=== PATIENT | female | born 1985 | race Caucasian/White ===

== ENCOUNTER → 2020-04-18 20:15 | Outpatient (REF) | payer MEDICAID, SELFPAY | LOC: HO.SL 20:15 | PROVIDERS: PCP Family Medicine; Visit Provider Emergency Medicine | DX: G47.9 Sleep disorder, unspecified (principal) | CPT/HCPCS: 95810 ==

== ENCOUNTER → 2020-10-03 10:46 | Outpatient (BNVA) | payer MEDICAID, SELFPAY | PROVIDERS: PCP Internal Medicine; Visit Provider Nurse Practitioner Family ==

== ENCOUNTER → 2021-01-16 09:15 | Outpatient (BNVA) | payer MEDICAID, SELFPAY | PROVIDERS: PCP Internal Medicine; Visit Provider Surgery ==

== ENCOUNTER 2021-01-18 09:33 | Outpatient (REF) | payer MEDICAID, SELFPAY ==
--- NOTE | ~2021-01-18 | XR_ITS ---
EXAMINATION: XR CHEST CLINICAL INFORMATION: Obesity COMPARISON: 03/06/2016 TECHNIQUE: 2 views of the chest were obtained. FINDINGS: The lungs are well expanded. There is no focal consolidation, edema, or effusion. No pneumothorax. The cardiomediastinal silhouette is within normal limits. No acute osseous abnormality. XR/XR chest 2V IMPRESSION: Clear lungs.
--- NOTE | 2021-01-18 09:40 | ECG_ITS ---
Test Reason : obesity Blood Pressure : / mmHG Vent. Rate : 072 BPM Atrial Rate : 072 BPM P-R Int : 126 ms QRS Dur : 072 ms QT Int : 376 ms P-R-T Axes : 043 041 011 degrees QTc Int : 411 ms Normal sinus rhythm Low voltage QRS Borderline ECG When compared with ECG of 06-MAR-2016 20:33, No significant change was found Referred By: Edwar Young Electronically Signed By:DAVE MARIA MD
[2021-01-18 09:58] LABS: MANUAL DIFF FLAG NO
[2021-01-18 10:11] LABS: Basophils Percent Auto 0.3 % (0-2); Eosinophils Absolute Auto 0.1 X10*3/uL (0.0-0.4); Eosinophils Percent Auto 0.9 % (0-4); Hematocrit 38.7 % (37-47); Hemoglobin 12.9 g/dl (12.0-16.0); Imm Gran Abs Auto 0.02 X10*3/uL (0.00-0.03); Imm Gran Pct Auto 0.3 % (0.0-0.4); Lymphocytes Absolute Auto 1.9 X10*3/uL (1.2-4.9); Lymphocytes Percent Auto 28.7 % (20-40); Mean Corpuscular HGB Conc 33.3 g/dl (31.0-35.0); Mean Corpuscular Hemoglobin 30.9 pg (27.0-33.0); Mean Corpuscular Volume 92.8 fL (80-98); Mean Platelet Volume 10.5 fL (9.4-12.3); Monocytes Absolute Auto 0.6 X10*3/uL (0.1-1.2); Monocytes Percent Auto 8.6 % (2-11); Neutrophils Absolute Auto 4.1 X10*3/uL (2.0-8.3); Neutrophils Percent Auto 61.2 % (45-73); Platelet Count 244 X10*3/uL (160-400); Red Blood Count 4.17 X10*6/uL (4.20-5.50); Red Cell Distribution Width 12.1 % (11.0-16.0); White Blood Count 6.6 X10*3/uL (4.8-10.8)
[2021-01-18 10:16] LABS: Estimated Average Glucose 85 mg/dL; Hemoglobin A1c % 4.6 %
[2021-01-18 10:39] LABS: Alanine Aminotransferase 11 U/L (0-31); Albumin Level 4.5 g/dL (3.5-5.0); Alkaline Phosphatase 68 U/L (39-117); Anion Gap 12 (12-20); Aspartate Amino Transferase 16 U/L (5-31); Bilirubin Total 0.7 mg/dL (0.0-1.0); Blood Urea Nitrogen 17 mg/dL (9-16); C Reactive Protein 0.78 mg/dL (< or = 0.50); Calcium 9.8 mg/dL (8.4-10.2); Carbon Dioxide 28 mmol/L (22-29); Chloride 103 mmol/L (96-108); Cholesterol 156 mg/dL; Estimated Glomerular Filt Rate > 60; Glucose Random 85 mg/dL (60-115); HDL Cholesterol 57 mg/dL; Iron 73 mcg/dL (30-160); LDL Cholesterol Calculated 92 mg/dl; Percent Iron Saturation 19 % (15-50); Potassium 4.1 mmol/L (3.3-5.1); Sodium 139 mmol/L (135-145); Total Iron Binding Capacity 376 mcg/dL (228-428); Total Protein 7.3 g/dL (6.5-8.0); Triglycerides 35 mg/dL; Unsaturated Iron Binding 303 ug/dL
[2021-01-18 10:58] LABS: Ferritin 52 ng/mL (10-122); Insulin 8 uU/mL (2-29); TSH reflex Free T4 3.16 uIU/mL (0.32-4.0); Vitamin D 25-OH Total 23.3 ng/mL (>30)
[2021-01-18 11:12] LABS: Folate 15.6 ng/mL (> or = 4.0); Vitamin B12 394 pg/mL (200-900)
[2021-01-18 13:03] LABS: H Pylori Breath Test Negative (Negative)
[2021-01-19 15:51] LABS: Calcium (PTHI) 9.7 mg/dL (8.6-10.2); PTHI 46 pg/mL (14-64)
[2021-01-23 05:20] LABS: Zinc 83 mcg/dL (60-130)
[2021-01-24 01:16] LABS: Vitamin A 47 mcg/dL (38-98)
[2021-01-24 15:12] LABS: Vitamin B1 13 nmol/L (8-30)
== END 2021-01-18 09:34 | disposition home or self-care (01) ==
LOC: HO.XRAY 09:33
PROVIDERS: PCP Internal Medicine; Visit Provider Surgery
DX: E66.9 Obesity, unspecified (principal); Z68.38 Body mass index [BMI] 38.0-38.9, adult; G47.30 Sleep apnea, unspecified
CPT/HCPCS: 36415; 71046; 80053; 80061; 82306; 82607; 82728; 82746; 83013; 83036; 83525; 83540; 83970; 84425; 84443; 84590; 84630; 85025; 86140; 93005; 99211

== ENCOUNTER → 2021-02-05 08:08 | Outpatient (BNVA) | payer MEDICAID, SELFPAY | PROVIDERS: PCP Internal Medicine; Visit Provider Surgery ==

== ENCOUNTER → 2021-02-12 08:03 | Outpatient (BNVA) | payer MEDICAID, SELFPAY | PROVIDERS: PCP Internal Medicine; Visit Provider Dietitian, Registered | DX: E66.9 Obesity, unspecified (principal); Z68.38 Body mass index [BMI] 38.0-38.9, adult | CPT/HCPCS: 97802 ==

== ENCOUNTER 2021-02-20 07:54 | Outpatient (REF) | payer MEDICAID, SELFPAY ==
--- NOTE | ~2021-02-20 | US_ITS ---
EXAMINATION: US COMPLETE ABDOMEN WITH LIVER ELASTOGRAPHY CLINICAL INFORMATION: Obesity COMPARISON: Previous CT of the abdomen and pelvis March 2019 TECHNIQUE: Real-time imaging of the abdominal viscera. Noninvasive ultrasound liver fibrosis assessment is performed using Jaron ElastPQ point quantification shear wave elastography (pSWE) with a C5-2 MHz transducer. Multiple elastography samples are obtained. FINDINGS: PANCREAS: Body the pancreas is normal. The head and tail the pancreas are not well visualized due to bowel gas. ABDOMINAL AORTA: The proximal, middle, and distal aortic segments are normal in caliber. INFERIOR VENA CAVA: Visualized portions are normal. LIVER: Normal. The liver demonstrates normal size, contour and echogenicity. There is a small cyst in the right lobe measuring 7 x 5 x 6 mm. No intrahepatic biliary duct dilatation. The right lobe measures 12.6 cm in length. The left lobe measures 10.7 cm in length. Portal flow is normal/hepatopedal Shear wave liver elastography median stiffness is 2.3 m/s (reference: normal median stiffness is 1.3 m/s or less). IQR/median stiffness to assess sampling precision is 0.16 (reference: good quality data set is IQR/median stiffness of 0.15 or less). GALLBLADDER: Normal. The gallbladder is physiologically distended without evidence of stones, sludge, polyps, wall thickening or pericholecystic fluid. COMMON BILE DUCT: Normal in caliber measuring 0.3 cm in diameter. RIGHT KIDNEY: Normal. No hydronephrosis. No renal calculi or focal parenchymal lesions. The kidney measures 10.2 cm in maximum dimension. LEFT KIDNEY: Normal. No hydronephrosis. No renal calculi or focal parenchymal lesions. The kidney measures 10.7 cm in maximum dimension. SPLEEN: Normal. The spleen measures 9.4 cm in maximum dimension. FREE FLUID: None. US/US abdomen comp w elastography IMPRESSION: 1. Impression: Small liver cyst otherwise normal-appearing liver. Limited visualization of the pancreas. 2. Liver elastography: Slightly limited due to sampling error. Liver stiffness is elevated suggestive of compensated advanced chronic liver disease. REFERENCE: Society of Radiologists in Ultrasound Liver Stiffness Thresholds (2019): LIVER STIFFNESS THRESHOLDS: *Liver Stiffness equal or less than 1.3 m/s: High probability of being normal. *Liver Stiffness less than 1.7 m/s: In the absence of other known clinical signs, rules out compensated advanced chronic liver disease. *Liver Stiffness 1.7-2.1 m/s: Suggestive of compensated advanced chronic liver disease but need further test for confirmation. *Liver Stiffness over 2.1 m/s: Rules in compensated advanced chronic liver disease. *Liver Stiffness over 2.4 m/s: Suggestive of clinically significant portal hypertension. QUALITY OF DATA SET: *IQR/Median value equal or less than 0.15 implies a quality data set. *IQR/Median value over 0.15 implies a poor quality data set. SIGNIFICANT CHANGE FROM PRIOR EXAM: Significant change if liver stiffness measurement is 10% or greater from prior exam. OTHER CONSIDERATIONS: The stage of liver fibrosis may be overestimated in the setting of acute hepatitis, liver inflammation, elevated liver function tests, hepatic vascular congestion, obstructive cholestasis, non-fasting state, and infiltrative diseases such as amyloidosis and lymphoma. In some patients with NAFLD, the liver stiffness thresholds for compensated advanced chronic liver disease may be lower. In causes other than viral hepatitis and NAFLD, liver stiffness thresholds are not well established.
--- NOTE | ~2021-02-20 | FL_ITS ---
EXAMINATION: XR GI SERIES CLINICAL INFORMATION: Obesity COMPARISON: None TECHNIQUE: Upper GI was performed using thin and thick barium. FINDINGS: Esophageal motility is normal. No reflux or hernia is seen. Stomach and duodenum are normal. No fold thickening, mass, ulcer or stricture is seen. FLUOROSCOPY TIME: 0.5 minutes DOSE AREA PRODUCT: 5 bustillo per centimeter squared. 16 saved fluoroscopic images. FL/FL upper GI series IMPRESSION: Unremarkable examination.
== END 2021-02-20 07:55 | disposition home or self-care (01) ==
LOC: HO.US 07:54
PROVIDERS: PCP Internal Medicine; Visit Provider Surgery
DX: Z01.818 Encounter for other preprocedural examination (principal); E66.9 Obesity, unspecified; Z68.38 Body mass index [BMI] 38.0-38.9, adult; G47.30 Sleep apnea, unspecified; K21.9 Gastro-esophageal reflux disease without esophagitis
CPT/HCPCS: 74240; 76705; 76981

== ENCOUNTER → 2021-02-28 08:02 | Outpatient (BNVA) | payer MEDICAID, SELFPAY | PROVIDERS: PCP Internal Medicine; Visit Provider Surgery ==

== ENCOUNTER → 2021-04-04 08:39 | Outpatient (BNVA) | payer MEDICAID, SELFPAY | PROVIDERS: PCP Internal Medicine; Visit Provider Surgery ==

== ENCOUNTER → 2021-04-10 08:23 | Outpatient (BNVA) | payer MEDICAID, SELFPAY | PROVIDERS: PCP Internal Medicine; Referring Provider Internal Medicine; Visit Provider Nurse Practitioner Family | DX: G47.33 Obstructive sleep apnea (adult) (pediatric) (principal); G43.109 Migraine with aura, not intractable, without status migrainosus; Z99.89 Dependence on other enabling machines and devices | CPT/HCPCS: 99212 ==

== ENCOUNTER → 2021-04-30 08:06 | Outpatient (BNVA) | payer MEDICAID, SELFPAY | PROVIDERS: PCP Internal Medicine; Visit Provider Surgery ==

== ENCOUNTER → 2021-05-14 08:14 | Outpatient (BNVA) | payer MEDICAID, SELFPAY | PROVIDERS: PCP Internal Medicine; Visit Provider Surgery ==

== ENCOUNTER → 2021-05-18 08:58 | Outpatient (BNVA) | payer MEDICAID, SELFPAY | PROVIDERS: PCP Internal Medicine; Referring Provider Internal Medicine; Visit Provider Surgery ==

== ENCOUNTER 2021-05-31 10:39 | Inpatient (IN) | payer MEDICAID, SELFPAY ==
[2021-05-23 13:00] LABS: MANUAL DIFF FLAG NO
[2021-05-23 13:43] LABS: Basophils Percent Auto 0.2 % (0-2); Eosinophils Absolute Auto 0.1 X10*3/uL (0.0-0.4); Eosinophils Percent Auto 1.2 % (0-4); Hematocrit 40.4 % (37.0-47.0); Hemoglobin 13.1 g/dl (12.0-16.0); Imm Gran Abs Auto 0.01 X10*3/uL (0.00-0.03); Imm Gran Pct Auto 0.2 % (0.0-0.4); Lymphocytes Absolute Auto 2.1 X10*3/uL (1.2-4.9); Lymphocytes Percent Auto 49.8 % (20-40); Mean Corpuscular HGB Conc 32.4 g/dl (31.0-35.0); Mean Corpuscular Hemoglobin 30.2 pg (27.0-33.0); Mean Corpuscular Volume 93.1 fL (80.0-98.0); Mean Platelet Volume 11.7 fL (9.4-12.3); Monocytes Absolute Auto 0.4 X10*3/uL (0.1-1.2); Monocytes Percent Auto 9.9 % (2-11); Neutrophils Absolute Auto 1.6 x10*3/uL (2.0-8.3); Neutrophils Percent Auto 38.7 % (45-73); Platelet Count 208 X10*3/uL (160-400); Red Blood Count 4.34 X10*6/uL (4.20-5.50); Red Cell Distribution Width 11.6 % (11.0-16.0); White Blood Count 4.2 X10*3/uL (4.8-10.8)
[2021-05-23 13:48] LABS: INTERNATIONAL NORM RATIO 1.1 (0.9-1.1); Prothrombin Time 12.3 SEC (9.9-13.0)
[2021-05-23 13:50] LABS: Estimated Average Glucose 94 mg/dL; Hemoglobin A1c % 4.9 %
[2021-05-23 13:51] LABS: Partial Thromboplastin Time 34.1 SEC (24.1-38.0)
[2021-05-23 14:12] LABS: Alanine Aminotransferase 29 U/L (0-31); Albumin Level 4.6 g/dL (3.5-5.0); Alkaline Phosphatase 57 U/L (39-117); Anion Gap 14 (12-20); Aspartate Amino Transferase 23 U/L (5-31); Bilirubin Total 0.7 mg/dL (0.0-1.0); Blood Urea Nitrogen 12 mg/dL (9-16); C Reactive Protein 0.81 mg/dL (< or = 0.50); Calcium 9.8 mg/dL (8.4-10.2); Carbon Dioxide 28 mmol/L (22-29); Chloride 102 mmol/L (96-108); Cholesterol 146 mg/dL; Estimated Glomerular Filt Rate > 60; Glucose Random 88 mg/dL (60-115); HDL Cholesterol 46 mg/dL; LDL Cholesterol Calculated 87 mg/dl; Potassium 4.2 mmol/L (3.3-5.1); Sodium 140 mmol/L (135-145); Total Protein 7.4 g/dL (6.5-8.0); Triglycerides 67 mg/dL
[2021-05-23 14:33] LABS: Insulin 17 uU/mL (2-29); TSH reflex Free T4 1.22 uIU/mL (0.32-4.0)
[2021-05-24 14:00] VITALS: BMI 34.7
[2021-05-24 14:56] LABS: COVID-19 Test Positive (Negative); IDNOW Serial# 16C4AD1C
--- NOTE | 2021-05-25 23:51 | P.HPSUR_ITS ---
Pre-Procedural Eval Section A Date of Service: 05/25/21 The patient is an INPATIENT: Yes The History & Physical has been completed within 30 days and I have reviewed it.: Yes Section B Chief Complaint: obesity Relevant Family History (Specify if Yes): No Relevant Social History: None Present Medications: None Medical History: No relevant PMH History of Previous Operations: No relevant previous surgery Allergies: Allergies Allergy/AdvReac Type Severity Reaction Status Date / Time shellfish derived Allergy Intermediate rash/itch/throat Verified 05/24/21 14:00 swelling Review of Systems Sugical H&P ROS: Negative: Constitution, Cardiovascular, Respiratory, Neurological, Psychiatric, Hem-Onc, Allergic/Immunologic, Gastrointestinal, Genitourinary, Musculoskeletal, Integumentary, Endocrine and Eyes/Ears /Nose/Throat Exam Surgical H&P Exam: Normal: HEENT, Normal: Heart, Normal: Lungs, Normal: Extremities, Normal: Abdomen, Normal: Skin and Normal: Neurological Plan Diagnosis/Plan: Unchanged I have reviewed the history and physical and performed a pertinent physical examination on my patient. No changes have occurred unless specified.
--- NOTE | 2021-05-30 11:04 | P.CONAN_ITS ---
Documented by User: Khadijah Stein NP 05/30/21 11:06 HPI - Anesthesia Eval Consult details Narrative: 36yo F for Gastrectomy Sleeve,EGD,possible diaphragmatic hernia,possible ventral hernia,possible open PMFSH Active Problems Active Problems: All Active Problems (Updated 05/24/21 @ 14:12 by Sheela Killian PA-C) Personal history of COVID-19 (Acute) Pre-op evaluation (Acute) Mild obstructive sleep apnea (Acute) Adjustment disorder, unspecified (Acute) Vitamin D deficiency (Acute) Vitamin B12 deficiency (Acute) BMI 36.0-36.9,adult (Acute) BMI 37.0-37.9, adult (Acute) Migraine with aura and without status migrainosus, not intractable (Acute) BMI 35.0-35.9,adult (Acute) Palpitations (Acute) Back pain (Acute) Migraines (Acute) Neuropathy (Acute) Sleep apnea with use of continuous positive airway pressure (CPAP) (Acute) BMI 38.0-38.9,adult (Acute) Obesity (Acute) Past Medical History Medical History Anemia Back pain BMI 38.0-38.9,adult COVID-19 vaccine series completed Hematuria History of COVID-19 Liver fibrosis Migraines Neuropathy Obesity Palpitations Sleep apnea with use of continuous positive airway pressure (CPAP) Family History Family History Mother Heart disease Hypertension Father Cancer Brother No problems noted. Brother No problems noted. Sister No problems noted. Son Asthma Son ADHD Daughter Migraine Surgical History Surgical History Hx of section Hx of cystoscopy Hx of foot surgery Hx of foot surgery Hx of tubal ligation Social History Social History Are you a primary home health care respiratory therapist to a significant other at home: No Do you presently have visiting nurse or other home services: No Alcohol intake: never Patient Tobacco Use Status: Never used Tobacco Use of substances other than those prescribed or required for medical reasons: No Have you been hit, kicked, punched, or otherwise hurt by someone within the past year? If so, by whom?: No Are you DNR?: No Advance Directives Information Provided: Yes (advised to bring copy day of surgery) Advance Directives on File: No Recently lost weight without trying: No Eating poorly because of decreased appetite: No Nutrition Risks: No Nutritional Risk Patient : No FDLMP: 05/10/21 : No Poor oral hygiene: No Meds Allergies Allergy/AdvReac Type Severity Reaction Status Date / Time shellfish derived Allergy Intermediate rash/itch/throat Verified 05/24/21 14:00 swelling Home Medications Medication Instructions Recorded Confirmed Last Taken Type amitriptyline 10 mg tablet 10 mg PO BEDTIME 10/03/20 05/24/21 Unknown History duloxetine 20 mg capsule,delayed 20 mg PO BID 01/16/21 05/24/21 Unknown History release tramadol 50 mg tablet 50 mg PO DAILY 01/16/21 05/24/21 Unknown History Exam Exam Date and Time: May 30, 2021 1104 Height,Weight and Vital Signs: Height 4 ft 11 in Weight 78.018 kg Pertinent Lab Results Pertinent Lab Results: Laboratory Tests 05/23/21 05/23/21 05/23/21 12:59 12:59 12:59 WBC 4.2 L RBC 4.34 Hgb 13.1 Hct 40.4 MCV 93.1 MCH 30.2 MCHC 32.4 RDW 11.6 Plt Count 208 MPV 11.7 Immature Gran % (Auto) 0.2 Neut % (Auto) 38.7 L Lymph % (Auto) 49.8 H [place] % (Auto) 9.9 Eos % (Auto) 1.2 Baso % (Auto) 0.2 Lymph # (Auto) 2.1 [place] # (Auto) 0.4 Eos # (Auto) 0.1 Baso # (Auto) 0.0 Abs Immat Gran (auto) 0.01 Absolute Neuts (auto) 1.6 L Absolute Nucleated RBC 0.000 Nucleated RBC % (auto) 0.0 PT 12.3 INR 1.1 APTT 34.1 Sodium 140 Potassium 4.2 Chloride 102 Carbon Dioxide 28 Anion Gap 14 BUN 12 Creatinine 0.95 Estim Creat Clear Calc TNP Estimated GFR > 60 Random Glucose 88 Estimat Average Glucose Hemoglobin A1c % Insulin Level 17 Calcium 9.8 Total Bilirubin 0.7 AST 23 D ALT 29 Alkaline Phosphatase 57 C-Reactive Protein 0.81 H Total Protein 7.4 Albumin 4.6 Triglycerides 67 Cholesterol 146 LDL Cholesterol, Calc 87 HDL Cholesterol 46 TSH 1.22 COVID-19 (TAMMY) COVID-19 Clin Com Blood Type Antibody Screen 05/23/21 05/23/21 05/24/21 12:59 13:00 14:39 WBC RBC Hgb Hct MCV MCH MCHC RDW Plt Count MPV Immature Gran % (Auto) Neut % (Auto) Lymph % (Auto) [place] % (Auto) Eos % (Auto) Baso % (Auto) Lymph # (Auto) [place] # (Auto) Eos # (Auto) Baso # (Auto) Abs Immat Gran (auto) Absolute Neuts (auto) Absolute Nucleated RBC Nucleated RBC % (auto) PT INR APTT Sodium Potassium Chloride Carbon Dioxide Anion Gap BUN Creatinine Estim Creat Clear Calc Estimated GFR Random Glucose Estimat Average Glucose 94 Hemoglobin A1c % 4.9 Insulin Level Calcium Total Bilirubin AST ALT Alkaline Phosphatase C-Reactive Protein Total Protein Albumin Triglycerides Cholesterol LDL Cholesterol, Calc HDL Cholesterol TSH COVID-19 (TAMMY) Positive A COVID-19 Clin Com See Note Blood Type O Positive Antibody Screen NEGATIVE Narrative Narrative: EKG 12/2020 Vent. Rate : 072 BPM ? ? Atrial Rate : 072 BPM ?? P-R Int : 126 ms? QRS Dur : 072 ms ? ? QT Int : 376 ms ? ? ? P-R-T Axes : 043 041 011 degrees ?? QTc Int : 411 ms ? Normal sinus rhythm Low voltage QRS Borderline ECG When compared with ECG of 06-MAR-2016 20:33, No significant change was found Assessment and Plan Assessment Anesthesia Assessment: Chart Reviewed Documented by User: Nuris Newman MD 05/31/21 13:49 PMFSH Past Medical History Medical History Anemia Back pain BMI 38.0-38.9,adult COVID-19 vaccine series completed Hematuria History of COVID-19 Liver fibrosis Migraines Neuropathy Obesity Palpitations Sleep apnea with use of continuous positive airway pressure (CPAP) Family History Family History Mother Heart disease Hypertension Father Cancer Brother No problems noted. Brother No problems noted. Sister No problems noted. Son Asthma Son ADHD Daughter Migraine Family history of problems with anesthesia: No Surgical History Surgical History Hx of section Hx of cystoscopy Hx of foot surgery Hx of foot surgery Hx of tubal ligation History of Problems with Anesthesia: No Social History Social History Are you a primary home health care respiratory therapist to a significant other at home: No Do you presently have visiting nurse or other home services: No Alcohol intake: never Patient Tobacco Use Status: Never used Tobacco Use of substances other than those prescribed or required for medical reasons: No Have you been hit, kicked, punched, or otherwise hurt by someone within the past year? If so, by whom?: No Are you DNR?: No Advance Directives Information Provided: Yes (advised to bring copy day of surgery) Advance Directives on File: No Recently lost weight without trying: No Eating poorly because of decreased appetite: No Nutrition Risks: No Nutritional Risk Patient : No FDLMP: 05/10/21 : No Poor oral hygiene: No Meds Allergies Allergy/AdvReac Type Severity Reaction Status Date / Time shellfish derived Allergy Intermediate rash/itch/throat Verified 05/24/21 14:00 swelling Home Medications Medication Instructions Recorded Confirmed Last Taken Type amitriptyline 10 mg tablet 10 mg PO BEDTIME 10/03/20 05/24/21 Unknown History duloxetine 20 mg capsule,delayed 20 mg PO BID 01/16/21 05/24/21 Unknown History release tramadol 50 mg tablet 50 mg PO DAILY 01/16/21 05/24/21 Unknown History Exam Height,Weight and Vital Signs: Height 4 ft 11 in Weight 78.018 kg Vital Signs Temp Pulse Resp BP Pulse Ox 05/31/21 11:23 98.8 F 104 H 16 110/64 96 Pertinent Lab Results Pertinent Lab Results: Laboratory Tests 05/23/21 05/23/21 05/23/21 12:59 12:59 12:59 WBC 4.2 L RBC 4.34 Hgb 13.1 Hct 40.4 MCV 93.1 MCH 30.2 MCHC 32.4 RDW 11.6 Plt Count 208 MPV 11.7 Immature Gran % (Auto) 0.2 Neut % (Auto) 38.7 L Lymph % (Auto) 49.8 H [place] % (Auto) 9.9 Eos % (Auto) 1.2 Baso % (Auto) 0.2 Lymph # (Auto) 2.1 [place] # (Auto) 0.4 Eos # (Auto) 0.1 Baso # (Auto) 0.0 Abs Immat Gran (auto) 0.01 Absolute Neuts (auto) 1.6 L Absolute Nucleated RBC 0.000 Nucleated RBC % (auto) 0.0 PT 12.3 INR 1.1 APTT 34.1 Sodium 140 Potassium 4.2 Chloride 102 Carbon Dioxide 28 Anion Gap 14 BUN 12 Creatinine 0.95 Estim Creat Clear Calc TNP Estimated GFR > 60 Random Glucose 88 Estimat Average Glucose Hemoglobin A1c % Insulin Level 17 Calcium 9.8 Total Bilirubin 0.7 AST 23 D ALT 29 Alkaline Phosphatase 57 C-Reactive Protein 0.81 H Total Protein 7.4 Albumin 4.6 Triglycerides 67 Cholesterol 146 LDL Cholesterol, Calc 87 HDL Cholesterol 46 TSH 1.22 COVID-19 (TAMMY) COVID-19 [employer] Com Blood Type Antibody Screen 05/23/21 05/23/21 05/24/21 12:59 13:00 14:39 WBC RBC Hgb Hct MCV MCH MCHC RDW Plt Count MPV Immature Gran % (Auto) Neut % (Auto) Lymph % (Auto) [place] % (Auto) Eos % (Auto) Baso % (Auto) Lymph # (Auto) [place] # (Auto) Eos # (Auto) Baso # (Auto) Abs Immat Gran (auto) Absolute Neuts (auto) Absolute Nucleated RBC Nucleated RBC % (auto) PT INR APTT Sodium Potassium Chloride Carbon Dioxide Anion Gap BUN Creatinine Estim Creat Clear Calc Estimated GFR Random Glucose Estimat Average Glucose 94 Hemoglobin A1c % 4.9 Insulin Level Calcium Total Bilirubin AST ALT Alkaline Phosphatase C-Reactive Protein Total Protein Albumin Triglycerides Cholesterol LDL Cholesterol, Calc HDL Cholesterol TSH COVID-19 (TAMMY) Positive A COVID-19 Clin Com See Note Blood Type O Positive Antibody Screen NEGATIVE Laboratory Results - last 24 hr 05/30/21 05/31/21 13:52 10:37 COVID-19 (TAMMY) Positive A Negative COVID-19 Clin Com See Note See Note Patient with h/o Covid in March- positive home test.Positive 05/24/21 and again yesterday on RNA tests but negative today CXR today- normal Airway Mallampati Class: II TM Dist: >3cm Neck ROM: Full Heart: RRR Lungs: CTAB Assessment and Plan Assessment Anesthesia Assessment: Anesthesia Plan Discussed Final Anesthetic Review Family History of Problems with Anesthesia: No History of Problems with Anesthesia: No NPO: Yes ASA Class: III and IV Final Preanesthetic Review: No Changes in Pt Med Stat, Meds/Allgs Chart Reviewed, Consent Obtained/Reviewed and Anes Risks/Benef Reviewed Patient Risk: Intermediate Procedure Risk: Intermediate Assessment/Block/Sedation in SS: Assess/Block/Sedation-SS Anesthetic Plan Anesthetic Plan: GA Disposition: Standard PACU and Inp. Admit - Standard Bed
[2021-05-30 14:06] LABS: COVID-19 Test Positive (Negative); IDNOW Serial# 16C4AD1C
[2021-05-31] VITALS (10 sets, daily range): BP systolic 109–161; BP diastolic 62–96; PULSE 62–104; RESP 14–17; TEMP 36.1–37.1; O2SAT 96–100
--- NOTE | ~2021-05-31 | XR_ITS ---
EXAMINATION: XR CHEST CLINICAL INFORMATION: Positive Covid testis. COMPARISON: December 2020 TECHNIQUE: Frontal view of the chest was obtained. FINDINGS: No significant abnormality is noted involving the heart, lungs, mediastinum, bony thorax or soft tissues. XR/XR chest 1V IMPRESSION: Normal portable chest x-ray
[2021-05-31 11:04] LABS: COVID-19 Test Negative (Negative); IDNOW Serial# 16C4AD1C
--- NOTE | 2021-05-31 11:25 | PC.NURSE ---
called radiology for a stat pre-op chest xray.
[2021-05-31] MEDS: Lactated Ringers 1,000 ML 999 ML IV (11:44)
[2021-05-31] MEDS: Lactated Ringers 1,000 ML 100 ML IVCONT ×2 (11:56→17:39)
--- NOTE | 2021-05-31 11:56 | PC.NURSE ---
bedside chest xray performed.
--- NOTE | 2021-05-31 12:59 | P.PNGS_ITS ---
Subjective Subjective Date of Service: 06/01/21 Interval history: Patient has mild incisional pain, but was able to ambulate and use the incentive spirometer. She is tolerating phase 1 bariatric diet Physical Exam Vital Signs: Vital Signs: Last Vital Signs Temp 98.8 F 05/31/21 11:23 Pulse 104 H 05/31/21 11:23 Resp 16 05/31/21 11:23 BP 110/64 05/31/21 11:23 Pulse Ox 96 05/31/21 11:23 BMI result Body Mass Index 34.7 GI: Inspection: Yes normal to inspection, Yes incision (clean, dry and intact) and Yes obesity Extrem: Right lower extremity: normal to inspection (no calf tenderness) Left lower extremity: normal to inspection (no calf tenderness) Objective Data Active Medications Lactated Ringer's (Lr) 1,000 mls @ 100 mls/hr IVCONT .Q10H FOR[facility]LY [facility], 1928–1983 Last Admin: 05/31/21 11:56 Dose: 100 mls/hr Documented by: ALISTAIR Labs CBC & Chem 7: 06/01/21 05:17 06/01/21 05:17 Labs: Laboratory Results - last 24 hr 05/30/21 05/31/21 13:52 10:37 COVID-19 (TAMMY) Positive A Negative COVID-19 Clin Com See Note See Note Procedures Date of Service Date of Service: 06/01/21 Progress Note: A&P Assessment and plan (1) Obesity: Status: Acute Assessment and Plan: s/p laparoscopic sleeve gastrectomy, lysis of adhesions repair of diaphragmatic hernia, and gastropexy Doing well Check am labs. If OK, will discharge home (2) BMI 35.0-35.9,adult: Status: Acute (3) Sleep apnea with use of continuous positive airway pressure (CPAP): Status: Acute (4) Neuropathy: Status: Acute (5) Migraines: Status: Acute (6) Back pain: Status: Acute (7) Liver fibrosis: Status: Acute (8) S/P laparoscopic sleeve gastrectomy: Status: Acute Fall Risk Details Current Medications: Current Medications Lactated Ringer's (Lr) 1,000 mls @ 100 mls/hr IVCONT .Q10H [facility] Last Admin: 05/31/21 11:56 Dose: 100 mls/hr Documented by: Time Spent With Patient Time: Total time spent is greater than 50% in coordination of care (as documented) at patient's floor/unit and/or counseling patient: Time with patient: less than 15 minutes Quality Stroke Does the patient have a stroke diagnosis?: No VTE Prior VTE?: No VTE Risk Level:: Surgical - moderate VTE Device Contraindication: N/A - Device Ordered VTE Drug Contraindication: Treatment Not Indicated
--- NOTE | 2021-05-31 13:01 | PM.OP ---
Brief Operative Note Date of Service: 05/31/21 Pre-op diagnosis: Severe obesity with comorbidities (see below) Post-op diagnosis: same Procedure: INITIAL PATIENT BMI ON PRESENTATION AT OUR OFFICE: 38.1 kg/m2 LAST BMI BEFORE SURGERY: 35.2 kg/m2 COMORBIDITIES: sleep apnea on CPAP, neuropathy, migraines, back pain, liver fibrosis ?The patient presented to the Weight Management Program with significant obesity that was negatively impacting the patient's comorbidities as listed above.? The program is a phased program with a special focus on preoperative medical weight management to promote substantial weight loss and prepare the patients for the second phase of the program: bariatric surgery. The patient participated in an intensive weekly lifestyle ?intervention and exercise program during which the patient ?has lost between the initial office visit and the last preoperative visit 16.8lbs, or 8.89% of initial actual body weight. It was deemed appropriate for the patient to now have bariatric surgery. In light of the current Covid-19 pandemic and the well documented strong association of obesity and increased risk of worse outcomes if infected with Covid-19 (REFERENCES:https://pubmed.ncbi.nlm.nih.gov/84812327/,?https://pubmed.ncbi.nlm.nih.gov/89267304/), any delay in undergoing bariatric surgery may lead to the patient's worsening health condition and increased?risk of more severe Covid-19 disease if infected. In addition a recent?study from [facility] published in [facility] on 03/26/2021 ([email or web address]:/[email or web address]) found that, among patients with obesity, substantial weight loss achieved with surgery was associated with improved outcomes of COVID-19 infection. The findings suggest that obesity can be a modifiable risk factor for the severity of COVID-19 infection. In addition, the patient met the BMI-criteria for bariatric surgery based on the BMI on initial presentation. The patient should not be penalized for achieving such weight loss because ?it is not sustainable long-term without surgical intervention and it was achieved in preparation for bariatric surgery ?under my direction and based on my published research ([email or web address]).pdf and?https://www.soard.org/article/[email or web address](70)35554-X/pdf) ?that a 10% preoperative weight loss improves long-term weight loss after surgery and reduces perioperative complications.? Insurance carriers such as [facility] have endorsed my recommendations ?and have included in their policies criteria to include a 10% preoperative weight loss requirement. PROCEDURE: Esophago-gastroscopy, laparoscopic sleeve gastrectomy and laparoscopic gastropexy INDICATIONS: This is a 36 year-old female who was electively scheduled for laparoscopic, possibly open sleeve gastrectomy. The risks and complications of the procedure were discussed with the patient in advance, particularly the possibility of ; pulmonary embolism; staple line leak; bleeding; GERD; cardiac, pulmonary, or renal complications; as well as long-term problems such as insufficient weight loss, vitamin deficiency, strictures, or ulcers. The patient understood all the risks, and was in agreement to proceed with surgery. DESCRIPTION OF PROCEDURE: After informed consent was obtained from the patient, the patient was given preoperative antibiotics, and was transferred to the operating room. After successful induction of general anesthesia, pneumatic compression devices were placed on both lower extremities. An upper endoscopy was performed next. The oropharynx and esophagus appeared to be within normal limits. There was no diaphragmatic hernia present with the findings of the preoperative upper GI. The stomach was entered. Then after all fluid and air were suctioned and the stomach was fully decompressed, the scope was withdrawn and secured in the mid esophagus. The patient was then prepped and draped in the usual sterile manner, and abdominal access was established at the right upper quadrant with the Dillan technique. A 12 mm blunt port was inserted, and the abdomen was insufflated with CO2 to a pressure of 15 mmHg. Under direct visualization, additional ports were placed, specifically two 5 mm Versi-step ports to the left upper quadrant, and a 5 mm Versi-Step port to the right upper quadrant. 1% lidocaine plain was used to infiltrate all port sites as well as all fascia defects. Following that, the patient was placed in a steep reverse Trendelenburg position. An additional 5 mm port was placed to the right flank for the Mediflex retractor that was used to retract the left lobe of the liver. The gastro-esophageal fat pad was opened with the ultrasonic device (Thunderbeat, Olympus) and the anterior esophagus and hiatus were exposed. The angle of His was opened with the ultrasonic device the fundus of the stomach from any diaphragmatic and splenic attachments. I then opened the gastrocolic ligament between the transverse colon and the greater curvature of the stomach with the ultrasonic device to enter the lesser sac and facilitate the ligation of the short gastric vessels. I started at a mid-point along the greater curvature and using the Thunderbeat, all short gastric vessels were divided all the way to the angle of His until the left lalito was completely dissected at its entirety. I then divided the gastro-colic ligament distally to a distance of about 3-4 cm proximal to the esophagus. The stomach was then divided transversely with one Endo BARB-45 purple, one BARB-45 orange load and three BARB-60 articulating orange loads using the AEON stapler and loads. Every effort was made that the gastric sleeve had a tubular shape and an even caliber throughout. Once the sleeve resection was completed, the staple line of the gastric sleeve was reinforced with Hemoclips. The resected stomach was retrieved without difficulty from the Dillan port. A gastropexy was then performed in order to prevent postoperative GERD and partial gastric volvulus. Several interrupted 2.0 Surgidac sutures were placed between the sleeve's staple line and the previously divided greater omentum and gastro-colic ligament using the Endo-Stitch device. ?An upper endoscopy was performed. There was no narrowing at the GE junction. The scope was easily advanced all the way to the pylorus which was clearly visualized. There was no narrowing anywhere and the sleeve's caliber was even throughout. The sleeve's staple line was inspected and there was no evidence of ischemia, bleeding or dehiscence. At that point the gastroscope was withdrawn from the patient?s mouth while we were decompressing the bowel and the stomach from any remaining air. I looked into the lesser sac to see how the sleeve was situating and it was situating well. There was no bleeding from the staple line, spleen, or short gastric vessels. The Mediflex retractor was removed, and the undersurface of the liver was inspected and there was no bleeding. The patient was placed in supine position. I closed the fascial defect of the 12 mm port site with a figure of eight #1 Polysorb suture. Then 100 cc 0.25 % Marcaine plain with 10 mg of Dexamethasone were used to infiltrate the fascial closure as well as all skin incisions. At this point, the abdomen was deflated, all ports were removed under direct vision, and no bleeding was noted from any of the port sites. The skin incisions were irrigated with saline and were closed with 4-0 absorbable monofilament sutures. Steri-Strips and OpSites were used to cover all incisions. The patient was extubated and was transferred in stable condition to the recovery room for further care. I was present and performed all michele parts of the procedure. 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 There were no residents to assist with this case. Bret Young MD, PhD, FACS Surgeon: Edwar Young MD Anesthesia: GETA, local and other (TAP block) Was an Regional Project Manager used for this Procedure?: No Regional Project Manager: Jamaal Yuan Estimated blood loss (mL): 10 IV fluids (mL): 2,500 Urine output (mL): 0 (No Stevens to record) Pathology: other (Stomach) Condition: stable Disposition: PACU
--- NOTE | 2021-05-31 15:51 | PM.DS ---
DS: Providers Provider Date of Service: 06/01/21 Date of admission: 05/31/21 10:39 Primary care physician: Jim Gonzalez MD DS: Diagnosis Discharge Diagnosis (1) Obesity: Status: Acute (2) BMI 35.0-35.9,adult: Status: Acute (3) Sleep apnea with use of continuous positive airway pressure (CPAP): Status: Acute (4) Neuropathy: Status: Acute (5) Migraines: Status: Acute (6) Back pain: Status: Acute (7) Liver fibrosis: Status: Acute DS: Summary Hospital Course Hospital Course: ADMITTING DIAGNOSIS: morbid obesity, LEONARD, migraine, neuropathy, back pain ? DISCHARGE DIAGNOSIS: same, s/p laparoscopic sleeve gastrectomy ? PAST SURGICAL HISTORY: cesarian section and foot surgery ? PROCEDURE: upper endoscopy, laparoscopic sleeve gastrectomy ? DISCHARGE SUMMARY: ? History of Present Illness: ? The patient is a?36 year-old woman with a BMI of?38.1 kg/m2 and associated co-morbidities as described above. The patient had extensive work-up,lost?13.6 lbs preoperatively and was electively scheduled for laparoscopic, possible open sleeve gastrectomy and gastropexy. Risks and complications of the surgery were discussed with the patient in advance, particularly the possibility of , pulmonary embolism, anastomotic leak, bleeding, bowel injury, GERD, cardiac, renal or pulmonary complications. The patient understood all the risks and was in agreement with the surgical plan. ? Hospital Course: ? The patient underwent an uneventful laparoscopic sleeve gastrectomy with gastropexy on the day of admission. Postoperatively, the patient was transferred to the surgical floor. The patient received IV Acetaminophen and IV dilaudid for pain control. Patient was started on bariatric phase 1 diet POD #0. On postoperative day one, the patient was feeling well without nausea, vomiting, fevers, or tachycardia. The patient had some mild incisional pain and the abdomen was soft. ? On the morning of postoperative day one, the patient was continued on 1 ounce of water or ice every half hour. During the day, the patient did fairly well, having some incisional pain, but able to ambulate adequately and to tolerate liquids well. ? Since the patient is doing well, we decided that the patient was ready to be discharged. The patient was given instructions to follow-up with me next week and to call my office for any fever over 101, persistent abdominal pain, nausea, vomiting, GERD, symptoms of DVT such as calf tenderness, or leg swelling, or pulmonary embolism such as chest pain or shortness of breath. The patient was also instructed to drink 40-60 ounces of liquids per day using the 1-ounce cups. The patient had been given prescriptions for Tylenol for pain, Zofran prn for nausea, and pantoprazole and carafate previously. The patient was encouraged to ambulate and use the incentive spirometer. The patient was allowed to shower, but no baths, and encouraged to stay active at home. All of these instructions were given to the patient personally. All questions were answered and the patient understood all instructions, the instructions were also given to the patient in print. Time Spent with Patient Time attestation: Total time spent providing and/or coordinating discharge services: Discharge coordination time: Less than 30 minutes Quality: Stroke Does the patient have a stroke diagnosis?: No Physical Exam Vital Signs: Vital Signs: Last Vital Signs Temp 97.0 F 05/31/21 15:41 Pulse 93 05/31/21 15:46 Resp 14 05/31/21 15:46 BP 137/77 05/31/21 15:46 Pulse Ox 100 05/31/21 15:46 BMI result Body Mass Index 34.7 DS: Data Data Completed and Pending Pending studies at discharge: Pending at discharge 05/31/21 14:50 Surgical [PTH] Routine Labs on day of discharge: Laboratory Results - last 24 hr 05/31/21 10:37 COVID-19 (TAMMY) Negative COVID-19 Clin Com See Note Discharge Plan Discharge Patient Disposition: Home, Self-Care Discharge Diagnosis: s/p laparoscopic sleeve gastrectomy Referrals: Jim Gonzalez MD [Primary Care Provider] - 1 Week Discharge Medications: Continued amitriptyline 10 mg tablet 10 mg PO BEDTIME 0RF duloxetine 20 mg capsule,delayed release(DR/EC) 20 mg PO BID 0RF pantoprazole 40 mg tablet,delayed release (DR/EC) 40 mg PO DAILY Qty: 30 2RF sucralfate 100 mg/mL suspension 10 ml PO BID Qty: 400 2RF sumatriptan succinate 100 mg tablet 100 mg PO Q2H PRN (Reason: migraine headache) Qty: 14 6RF Rx Instructions: do not exceed 2 doses per 24 hrs or 4 doses per week. Held tramadol 50 mg tablet 50 mg PO BID PRN (Reason: Pain) 0RF Hold Instructions: until discussed with dr Monroe Discontinued cholecalciferol (vitamin D3) 125 mcg (5,000 unit) capsule 125 mcg PO DAILY Qty: 30 2RF mecobalamin (vitamin B12) 1,000 mcg tablet,disintegrating 1,000 mcg sublingual DAILY Qty: 30 2RF Rx Instructions: place tablet under tongue and allow to dissolve for at least30 secs before swallowing riboflavin (vitamin B2) 400 mg tablet 400 mg PO DAILY 30 Days Qty: 30 6RF magnesium oxide 400 mg (241.3 mg magnesium) tablet 400 mg PO BEDTIME 30 Days Qty: 30 6RF Diet: other Activity on Discharge: No heavy lifting Stand Alone Forms: Patient Portal Discharge page Care Plan Goals: weight loss Health Concerns: obesity Plan of Treatment: No tub baths, sex or returning to work until discussed at first post op appointment. No exercise, alcohol, tobacco or illegal drug use. Continue to use incentive spirometer hourly while awake. Walk in home for 5- 10 minutes every 2 hours during the first week. Follow all instructions in the bariatric handbook and call with any questions.Discharge Instructions 1. Please call your doctor or come back to the emergency room should any new symptoms arise. 2. You will receive a courtesy call from [facility] 24-48 hours after discharge. 3. Activity: abstain from alcohol, practice limited stair climbing, no bending, no driving, no exercise, no illicit substances, no lifting, no sex, no tub bath, no work. 4. Diet: continue as discussed with Dr. Young. 5. Dressing Change/Wound Care: Your incision is covered by clear bandages and guaze underneath. If the area is tender, you may apply an ice pack for short intervals (no more than 20 minutes on, followed by at least 20 minutes off). Do not apply heat. Do not use creams, lotions, or topical antibiotics unless instructed to do so by your surgeon. These can cause infection or allergic reaction. 6. Call your doctor if: - Your temperature exceeds 101.5 F - You experience excessive pain or swelling - You have an unexpected reaction to medication - You have excessive bleeding - You experience continued vomiting/nausea - Your incision begins to separate - Your incision shows signs of infection such as increased redness, swelling, excessive pain, heat, or drainage (light blood or clear fluid is normal) 7. General instructions: No lifting greater than 5 lbs for the next 4 weeks. [address] driving within 24 hours of taking narcotic pain medications. If you do not move your bowels in the next 2 days, please take milk of magnesia over the counter. Please follow the post op diet and do not advance your diet until you are seen in the office in about 2 weeks. Please walk around your home every hour or two to prevent blood clots from forming in your legs. You do not need to wake from sleeping to walk. Please sleep in a bed or couch to prevent kinking at the hips and knees. 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 You may shower, no hot tubs, baths or swimming pools. Please call the office with any questions or concerns such as increasing abdominal pain, fever, chills, shortness of breath, chest pain, leg pain or swelling, or redness or drainage from your incisions. Please stay on stage 3 diet which includes sugar free clear liquids such as ice pops and jello and broth and crystal light. Avoid all carbonation. Please drink 3 protein shakes with at least 25-30 grams of protein daily or 3 of the Celebrate 4:1 shakes which can be purchased in our office. The Celebrate shakes have all of the bariatric vitamins you need if you consume these shakes. If you are drinking other protein shakes, you will need to purchase the Celebrate multivitamins and calcium that we provide in the office (they will provide all the vitamins you need). Please make sure you are consuming at least 40-60 ounces of water in addition to your 3 protein shakes daily. Do not hesitate to contact the office with any questions at . The patient's medical history has been reviewed and they are considered low risk for post op DVT and therefore DVT prophylaxis is not considered necessary. Travel after surgery was reviewed. The patient has not disclosed any travel plans during the first 30 days after surgery and they have been advised that within the first 30 days after surgery any bus, plane, train or car travel over 2 hours in duration is contraindicated due to the possibility of developing blood clots from immobility. Any travel, needs to include periods of ambulation of 10 minutes in duration every 2 hours.? The patient was instructed to discuss any plans for travel during this period with their bariatric surgeon. Assessment: stable s/p laparoscopic sleeve gastrectomy
[2021-05-31 16:35] LABS: Hematocrit 35.4 % (37.0-47.0); Hemoglobin 11.7 g/dl (12.0-16.0)
[2021-05-31 16:49] LABS: Anion Gap 16 (12-20); Blood Urea Nitrogen 9 mg/dL (9-16); Calcium 8.9 mg/dL (8.4-10.2); Carbon Dioxide 23 mmol/L (22-29); Chloride 103 mmol/L (96-108); Creatinine Clr Calc Pharmacy 82.1; Estimated Glomerular Filt Rate > 60; Glucose Random 100 mg/dL (60-115); Potassium 4.1 mmol/L (3.3-5.1); Sodium 138 mmol/L (135-145)
[2021-05-31] MEDS: 0.9 % Sodium Chloride Flush 3 ML SYRINGE IVFLUSH ×2 (17:40→20:08)
--- NOTE | 2021-05-31 17:44 | PHA.MEDREC ---
Addendum entered by Danilo Fernandez RPh 05/31/21 17:46: Patient has rx for carafate in her bag, but has not started it Original Note: Pharmacy Consult ? Medication Reconciliation Pharmacy has completed the medication reconciliation. Spoke to patient and spouse. Despite refill history, patient endorses that they take cymbalta and amitriptyline. Danilo Fernandez
[2021-05-31] MEDS: Metoclopramide HCl 10 MG/2 ML VIAL IVPUSH (18:02)
[2021-05-31] MEDS: Famotidine/PF 20 MG/2 ML VIAL IVPUSH (20:08)
[2021-06-01] MEDS: ondansetron HCL 4 MG/2 ML VIAL IVPUSH ×2 (02:00→08:57)
[2021-06-01] MEDS: Lactated Ringers 1,000 ML 100 ML IVCONT (02:01)
[2021-06-01 03:47] VITALS: BP 115/71; PULSE 70; RESP 14; TEMP 36.1; O2SAT 98
[2021-06-01 05:45] LABS: MANUAL DIFF FLAG NO
[2021-06-01 05:54] LABS: Hematocrit 36.1 % (37.0-47.0); Hemoglobin 11.8 g/dl (12.0-16.0); Imm Gran Abs Auto 0.02 X10*3/uL (0.00-0.03); Imm Gran Pct Auto 0.2 % (0.0-0.4); Lymphocytes Absolute Auto 0.9 X10*3/uL (1.2-4.9); Mean Corpuscular HGB Conc 32.7 g/dl (31.0-35.0); Mean Corpuscular Hemoglobin 30.1 pg (27.0-33.0); Mean Corpuscular Volume 92.1 fL (80.0-98.0); Mean Platelet Volume 12.3 fL (9.4-12.3); Monocytes Absolute Auto 0.6 X10*3/uL (0.1-1.2); Monocytes Percent Auto 6.9 % (2-11); Neutrophils Absolute Auto 7.1 x10*3/uL (2.0-8.3); Neutrophils Percent Auto 82.9 % (45-73); Platelet Count 221 X10*3/uL (160-400); Red Blood Count 3.92 X10*6/uL (4.20-5.50); Red Cell Distribution Width 11.7 % (11.0-16.0); White Blood Count 8.5 X10*3/uL (4.8-10.8)
[2021-06-01 07:00] LABS: Anion Gap 16 (12-20); Blood Urea Nitrogen 7 mg/dL (9-16); Carbon Dioxide 23 mmol/L (22-29); Chloride 102 mmol/L (96-108); Creatinine Clr Calc Pharmacy 91.6; Estimated Glomerular Filt Rate > 60; Glucose Random 101 mg/dL (60-115); Potassium 4.6 mmol/L (3.3-5.1); Sodium 136 mmol/L (135-145)
[2021-06-01 07:12] LABS: Calcium 10.1 mg/dL (8.4-10.2)
[2021-06-01 07:41] VITALS: BP 118/69; PULSE 61; RESP 18; TEMP 36.4; O2SAT 95
[2021-06-01] MEDS: Famotidine/PF 20 MG/2 ML VIAL IVPUSH (08:57)
[2021-06-01 11:56] VITALS: BP 121/73; PULSE 62; RESP 18; TEMP 36.5; O2SAT 99
--- NOTE | 2021-06-01 16:01 | MHC.CM.PN ---
EMR REVIEWED, PT ADMITTED S/P LAP SLEEVE GASTRECTOMY, CM MET W/PT WHO REPORTS SHE LIVES W/HER AND CHILDREN, PT IS INDEPENDENT W/ALL CARE, USES A CPAP AND NO OTHER DME AND HAS NO HOME SERVICES, PT VERIFIES PCP BIANCA ELLISON, REPORTS HER IS HER HCP [facility] [phone], CPY REQUESTED, PT PREFERS TO D/C AFTER LUNCH, AT BEDSIDE AND WILL TRABNSPORT. D/C PLAN: HOME SELF CARE TODAY W/ FOR TRANSPORT
== END 2021-06-01 13:46 | disposition home or self-care (01) | DRG 403 ==
LOC: HO.SSSA 15:51 → HO.S3 16:21
PROVIDERS: Nurse Practitioner; Physician Assistant Surgical; Admitting Provider Surgery; PCP Internal Medicine; Visit Provider Surgery
PROC: 0DB64Z3 Excision of Stomach, Percutaneous Endoscopic Approach, Vertical (ICD-10-PCS; CPT 43845; principal; 2021-05-31 12:50)
DX: E66.01 Morbid (severe) obesity due to excess calories (principal); K74.00 Hepatic fibrosis, unspecified; G43.909 Migraine, unspecified, not intractable, without status migrainosus; Z68.35 Body mass index [BMI] 35.0-35.9, adult; G47.33 Obstructive sleep apnea (adult) (pediatric); G62.9 Polyneuropathy, unspecified; M54.9 Dorsalgia, unspecified; Z86.16 Personal history of COVID-19; Z99.89 Dependence on other enabling machines and devices; Z79.891 Long term (current) use of opiate analgesic; Z79.899 Other long term (current) drug therapy
CPT/HCPCS: 36415; 71045; 80048; 80053; 80061; 83036; 83525; 84443; 85014; 85018; 85025; 85610; 85730; 86140; 86850; 86900; 86901; 87635; 88307; 88342; 99024; A4649; J0131; J0690; J1100; J1170; J2250; J2370; J2405; J2765; J3010

== ENCOUNTER → 2021-06-06 08:22 | Outpatient (BNVA) | payer MEDICAID, SELFPAY | PROVIDERS: PCP Internal Medicine; Referring Provider Internal Medicine; Visit Provider Surgery | DX: E66.9 Obesity, unspecified (principal); Z68.32 Body mass index [BMI] 32.0-32.9, adult; Z98.84 Bariatric surgery status | CPT/HCPCS: 99212 ==

== ENCOUNTER → 2021-07-04 08:33 | Outpatient (BNVA) | payer MEDICAID, SELFPAY | PROVIDERS: PCP Internal Medicine; Visit Provider Surgery | DX: E66.9 Obesity, unspecified (principal); Z68.30 Body mass index [BMI] 30.0-30.9, adult | CPT/HCPCS: 99212 ==

== ENCOUNTER → 2021-07-24 08:21 | Outpatient (BNVA) | payer MEDICAID, SELFPAY | PROVIDERS: PCP Internal Medicine; Referring Provider Internal Medicine; Visit Provider Dietitian, Registered | DX: E66.9 Obesity, unspecified (principal); Z68.29 Body mass index [BMI] 29.0-29.9, adult | CPT/HCPCS: 97803 ==

== ENCOUNTER → 2021-08-30 10:30 | Outpatient (BNVA) | payer MEDICAID, SELFPAY | PROVIDERS: PCP Internal Medicine; Referring Provider Surgery; Visit Provider Dietitian, Registered | DX: E66.3 Overweight (principal); Z68.28 Body mass index [BMI] 28.0-28.9, adult; Z71.3 Dietary counseling and surveillance | CPT/HCPCS: 97803 ==

== ENCOUNTER → 2021-09-05 14:52 | Outpatient (BNVA) | payer MEDICAID, SELFPAY | PROVIDERS: PCP Internal Medicine; Visit Provider Physician Assistant Surgical | DX: R10.9 Unspecified abdominal pain (principal); R11.10 Vomiting, unspecified; Z98.84 Bariatric surgery status | CPT/HCPCS: 99212 ==

== ENCOUNTER → 2021-10-02 11:14 | Outpatient (BNVA) | payer MEDICAID, SELFPAY | PROVIDERS: PCP Internal Medicine; Referring Provider Surgery; Visit Provider Dietitian, Registered | DX: E66.3 Overweight (principal); Z68.27 Body mass index [BMI] 27.0-27.9, adult; Z98.84 Bariatric surgery status; Z71.3 Dietary counseling and surveillance | CPT/HCPCS: 97803 ==

== ENCOUNTER → 2021-11-01 15:21 | Outpatient (BNVA) | payer MEDICAID, SELFPAY | PROVIDERS: PCP Internal Medicine; Referring Provider Surgery; Visit Provider Dietitian, Registered | DX: E66.3 Overweight (principal); Z71.3 Dietary counseling and surveillance; Z98.84 Bariatric surgery status | CPT/HCPCS: 97803 ==

== ENCOUNTER → 2022-01-02 08:46 | Outpatient (BNVA) | payer MEDICAID, SELFPAY | PROVIDERS: PCP Nurse Practitioner Primary Care; Visit Provider Physician Assistant Surgical | DX: E66.9 Obesity, unspecified (principal); Z68.24 Body mass index [BMI] 24.0-24.9, adult; Z98.84 Bariatric surgery status | CPT/HCPCS: 99212 ==

== ENCOUNTER → 2022-05-29 12:36 | Outpatient (BNVA) | payer MEDICAID, SELFPAY | PROVIDERS: PCP Nurse Practitioner Primary Care; Visit Provider Physician Assistant Surgical | DX: Z98.84 Bariatric surgery status (principal) | CPT/HCPCS: 99212 ==

== ENCOUNTER 2022-08-29 09:23 | Outpatient (REF) | payer MEDICAID, SELFPAY ==
--- NOTE | ~2022-08-29 | US_ITS ---
EXAMINATION: US VENOUS ULTRASOUND WITH DOPPLER LOWER EXTREMITY, RIGHT CLINICAL INFORMATION: Right lower extremity pain, rule out DVT. COMPARISON: None available. TECHNIQUE: Ultrasound of the deep veins is performed from the hip to the calf with compression sonography and color and pulse Doppler assessment. Spectral analysis with color-flow imaging is performed. FINDINGS: There is normal venous compression and respiratory variation and augmented flow. The visualized common femoral vein, superficial femoral vein, profunda femoral vein, popliteal vein, and the trifurcation region shows no evidence of deep venous thrombosis. No right popliteal cyst. The subcutaneous soft tissues are unremarkable. US/US venous duplex LE RT IMPRESSION: No evidence for deep venous thrombosis in the visualized veins of the right lower extremity.
== END 2022-08-29 09:24 | disposition home or self-care (01) ==
LOC: HO.US 09:23
PROVIDERS: PCP Nurse Practitioner Primary Care; Visit Provider Student in an Organized Health Care Education/Training Program
DX: R10.31 Right lower quadrant pain (principal)
CPT/HCPCS: 93971

== ENCOUNTER → 2022-09-02 14:36 | Outpatient (BNVA) | payer MEDICAID, SELFPAY | PROVIDERS: PCP Nurse Practitioner Primary Care; Visit Provider Nurse Practitioner Family | DX: G47.33 Obstructive sleep apnea (adult) (pediatric) (principal) | CPT/HCPCS: 99212 ==

== ENCOUNTER 2022-09-03 14:13 | Outpatient (REF) | payer MEDICAID, SELFPAY ==
--- NOTE | ~2022-09-03 | MR_ITS ---
EXAMINATION: MR LUMBAR SPINE WITHOUT CONTRAST CLINICAL INFORMATION: 37-year-old with low back pain radiating to the right leg, self-reported numbness right leg and foot. COMPARISON: None available. TECHNIQUE: MRI of the lumbar spine was obtained using routine sequences without contrast. FINDINGS: Coronal Alignment: Mild lumbar dextrocurvature, convex to the right at L3-L4. Sagittal Alignment: Normal. Lumbosacral Junction: Normal. There are 5 [id number] lumbar-type vertebral bodies. Vertebral Bodies: Well maintained with normal height. No compression fractures, anomalies or other deformities. Disc Spaces and Endplates: The intervertebral disc space heights and signal are well-maintained throughout the visualized thoracolumbar spine. There is no significant spondylosis. Endplates appear intact. Spinal Canal: No abnormal developmental findings. Bone Marrow: No significant marrow-replacing process or bone marrow edema. Conus Medullaris: Terminates at L1. Morphology and signal is normal. Intradural Nerve Roots: Within normal limits. Annular contours appear normal throughout the lumbar spine with no significant disc bulge or herniation. There is mild facet hypertrophic change at L5-S1 and to a lesser degree at L4-L5 bilaterally with a small right-sided L5-S1 facet joint effusion. Fluid signal in the facet joints at L3-L4 and L4-L5 bilaterally is probably within the range of normal variation. No periarticular soft tissue edema is seen to suggest an acute inflammatory process. No significant spinal canal or neuroforaminal stenosis and no evidence for neural impingement throughout the lumbar spine. Paravertebral and Included Extraspinal Soft Tissues: The visualized paravertebral soft tissues and included retroperitoneal structures are unremarkable within the limitations of the exam. MR/MR lumbar spine wo con IMPRESSION: 1. Mild lower lumbar facet arthropathy is noted, with a small right-sided L5-S1 facet joint effusion. 2. No significant disc degenerative change, disc bulge or herniation. No significant spinal canal or neuroforaminal stenosis and no evidence for neural impingement.
== END 2022-09-03 14:14 | disposition home or self-care (01) ==
LOC: HO.MRI 14:13
PROVIDERS: PCP Nurse Practitioner Primary Care; Visit Provider Student in an Organized Health Care Education/Training Program
DX: M54.50 Low back pain, unspecified (principal); M79.604 Pain in right leg
CPT/HCPCS: 72148

== ENCOUNTER → 2022-09-25 11:14 | Outpatient (REF) | payer MEDICAID, SELFPAY | LOC: HO.SL 11:14 | PROVIDERS: PCP Nurse Practitioner Primary Care; Visit Provider Nurse Practitioner Family | DX: G47.33 Obstructive sleep apnea (adult) (pediatric) (principal) | CPT/HCPCS: 95806 ==

== ENCOUNTER 2022-11-14 18:15 | Outpatient (REF) | payer MEDICAID, SELFPAY ==
[2022-11-14 19:28] LABS: Influenza A PCR NEGATIVE (Negative); Influenza B PCR NEGATIVE (Negative); Resp Syncy Virus RNA Qual PCR NEGATIVE (Negative); SARS COV2 PCR INHOUSE NEGATIVE (Negative)
== END 2022-11-14 18:16 | disposition home or self-care (01) ==
LOC: HO.HHCLNP 18:15
PROVIDERS: Visit Provider Student in an Organized Health Care Education/Training Program
DX: Z20.822 Contact with and (suspected) exposure to COVID-19 (principal); G44.209 Tension-type headache, unspecified, not intractable
CPT/HCPCS: 0241U

== ENCOUNTER 2022-11-28 13:47 | Outpatient (AMB) | payer MEDICAID, SELFPAY ==
--- NOTE | 2022-11-28 13:49 | A.OFFVIS_ITS ---
Intake Vital Signs 11/28/22 13:51 Height 4 ft 11 in Weight 125 lb 6 oz BMI 25.3 BP 100/72 Blood Pressure Location Lt brachial Position Sitting Pulse 76 Pulse Source Pulse Oximeter Pulse Oximetry (%) 98 Oxygen Delivery Method Room Air Intake Visit Reasons: 2m Follow up LEONARD - Confirmed Intake Note: Pt states shes still not sleeping well Allergies shellfish derived Allergy (Intermediate, Verified 11/28/22 13:53) rash/itch/throat swelling HPI HPI Comments History of Present Illness Details 37 y/o female patient presents for follow up sleep study. The home sleep study result was normal sleep study. The AHI was 1/hr and oxygen guadalupe was 92%. Pt reports that she had a gastric sleeve surgery done in May,. She lost more than 60 lb since the surgery. Pt stating that she gained couple of more pounds but manages well. She sleeps well, rested and daytime tiredness has improved. COUNTS INCLUDE 234 BEDS AT THE [facility] Medical History Anemia Back pain BMI 36.0-36.9,adult BMI 37.0-37.9, adult BMI 38.0-38.9,adult COVID-19 vaccine series completed Hematuria History of COVID-19 Liver fibrosis Migraines Neuropathy Obesity Palpitations Pre-op evaluation Sleep apnea with use of continuous positive airway pressure (CPAP) Surgical History Hx of section Hx of cystoscopy Hx of foot surgery Hx of foot surgery Hx of tubal ligation S/P laparoscopic sleeve gastrectomy Family History Mother Heart disease Hypertension Father Cancer Brother No problems noted. Brother No problems noted. Sister No problems noted. Son Asthma Son ADHD Daughter Migraine Social History Are you a primary care center manager to a significant other at home: No Do you presently have visiting nurse or other home services: No Alcohol intake: never Patient Tobacco Use Status: Never used Tobacco service: No Current occupational status: unemployed Review of Systems Const All systems reviewed & are unremarkable except as noted in HPI and below ENT Reports Normal hearing present Neuro Reports Normal hearing present Physical Exam Vital Signs: Last Vital Signs Pulse 76 11/28/22 13:51 BP 100/72 11/28/22 13:51 Pulse Ox 98 11/28/22 13:51 Oxygen Delivery Method Room Air 11/28/22 13:51 BMI result Body Mass Index 25.3 Const General: cooperative and comfortable Orientation/consciousness: patient oriented x3 Limitations: no limitations HEENT Head: Yes other (Cyst on back of head) Ears: hearing grossly normal bilaterally Eyes Pupils: Equal, round and reactive pupils present Neuro General: patient oriented x3 Cranial nerves: Yes Equal, round and reactive pupils present, Yes Bilaterally intact EOM present, Yes Normal facial strength present, Yes Midline tongue present, Yes Normal hearing present, Yes Ability to bilaterally rotate head present and Yes Ability to bilaterally elevate shoulders present Gait exam (Neuro): Normal gait present Motor exam (neuro): 5/5 motor strength present throughout Psych Appearance: grossly normal Mental Status: mental status grossly normal Speech and movement: Normal speech and movement present Affect: normal affect Attitude: cooperative Thought process: Normal thought process present Assessment & Plan Assessment & Plan (1) Mild obstructive sleep apnea: Comment: In-lab PSG ([facility] [place] 04/18/20): AHI 10/hr with O2 guadalupe 86%, PLMS index 6.3/hr with a PLMS arousal index of 1.1/hr. Code(s): G47.33 - Obstructive sleep apnea (adult) (pediatric) Plan Advised patient to continue to practice good sleep hygiene education. Encouraged daily physical activities and maintain health wt. Pt may call for worsening symptoms or new concerns. Coding Level of Care Code Est Pt Level 3 (22494) Diagnoses Mild obstructive sleep apnea G47.33
[2022-11-28 13:51] VITALS: BP 100/72; PULSE 76; O2SAT 98; BMI 25.3
== END 2022-11-28 14:02 | disposition home or self-care (01) ==
PROVIDERS: PCP Nurse Practitioner Primary Care; Visit Provider Nurse Practitioner Family
DX: G47.33 Obstructive sleep apnea (adult) (pediatric) (principal)
CPT/HCPCS: 99213

== ENCOUNTER → 2022-11-28 13:47 | Outpatient (BNVA) | payer MEDICAID, SELFPAY | PROVIDERS: PCP Nurse Practitioner Primary Care; Visit Provider Nurse Practitioner Family | DX: G47.33 Obstructive sleep apnea (adult) (pediatric) (principal) | CPT/HCPCS: 99212 ==

== ENCOUNTER 2022-12-03 12:47 | Outpatient (AMB) | payer MEDICAID, SELFPAY ==
--- NOTE | 2022-12-03 12:49 | A.OFFVIS_ITS ---
Intake VS Expanded 12/03/22 12:56 Height 4 ft 11 in Weight 122 lb 3.2 oz BMI 24.7 BP 109/70 Blood Pressure Location Rt brachial Blood Pressure Position Sitting Pulse 77 Pulse Source Pulse Oximeter Temp 97.1 F Temperature Source Tympanic Pulse Oximetry 96 Oxygen Delivery Method Room Air Body Fat 36.2 Body Fat Percentage 29.6 Free Fat Mass 86.6 Muscle Mass 81.6 Visceral Mass 4.0 Water Mass 61.8 BMR 1,196 Intake Visit Reasons: (OV) PO LSG 05/31/21 Allergies shellfish derived Allergy (Intermediate, Verified 12/03/22 12:54) rash/itch/throat swelling Medication List - Last Reconciled 12/03/22 by ELFEGO Patel clotrimazole 1% 1 appl topical BID diclofenac sodium 1% (Arthritis Pain (diclofenac)) 2 grams topical QID lidocaine 4% (Aspercreme (lidocaine)) 1 patch topical DAILY PRN oxycodone 5 mg PO DAILY PRN pregabalin (Lyrica) 50 mg PO TID HPI HPI Comments History of Present Illness Details This?is a 37?yo female who is s/p LSG 05/31/2021. Presents for 1.5 year post op visit. Weight gain of 1.6lbs since last visit 6 months ago.? No complaints of nausea, emesis, abdominal pain or reflux, or constipation. She has decided not to undergo reversal of sterilization procedure and has no plans for future anytime soon. Reports occasional rashes in skin fold of umbilicus, itchy. Did not receive clotrimazole after last visit. Has to wear compressive or tight waistbands to hold the excess skin in place to prevent discomfort. She finds exercise to be more difficult as the excess skin will get in the way and limit range of motion. Was in ID for 3 weeks, had gained a little weight but back on track now. Present meal plan includes: 2 Premier protein shakes, 1 egg, and 1 meal (fish, chicken, or sometimes red meat-protein and vegetable) Currently taking reg MVI and vit D. Exercise routine includes: has had difficulty with exercise due to back pain, foot pain/nerve damage, seeing specialist for help with pain management If she does exercise, will use bicycle at home, or videos. Also will do core work. Did the patient ever have any of these conditions and are they resolved or still being treated? GERD: never LEONARD:? stopped using machine DM:? ?never HTN:? never Hyperlipidemia:? never Post op complications:? none PFSH Medical History Anemia Back pain BMI 36.0-36.9,adult BMI 37.0-37.9, adult BMI 38.0-38.9,adult COVID-19 vaccine series completed Hematuria History of COVID-19 Liver fibrosis Migraines Neuropathy Obesity Palpitations Pre-op evaluation Sleep apnea with use of continuous positive airway pressure (CPAP) Surgical History Hx of section Hx of cystoscopy Hx of foot surgery Hx of foot surgery Hx of tubal ligation S/P laparoscopic sleeve gastrectomy Family History Mother Heart disease Hypertension Father Cancer Brother No problems noted. Brother No problems noted. Sister No problems noted. Son Asthma Son ADHD Daughter Migraine Social History Are you a primary transitions rn care coordinator to a significant other at home: No Do you presently have visiting nurse or other home services: No Alcohol intake: never Patient Tobacco Use Status: Never used Tobacco service: No Current occupational status: unemployed Physical Exam Vital Signs: Last Vital Signs Temp 97.1 F 12/03/22 12:56 Pulse 77 12/03/22 12:56 BP 109/70 12/03/22 12:56 Pulse Ox 96 12/03/22 12:56 Oxygen Delivery Method Room Air 12/03/22 12:56 BMI result Body Mass Index 24.7 Const General: cooperative, comfortable and no acute distress Orientation/consciousness: patient oriented x3 GI Other: soft, nontender, nondistended, incisions well healed, no hernia, no masses Grade II pannus Neuro General: patient oriented x3 Assessment & Plan Assessment & Plan (1) S/P laparoscopic sleeve gastrectomy: Comment: 05/31/2021 Code(s): Z98.84 - Bariatric surgery status (2) Excess skin: Code(s): L98.7 - Excessive and redundant skin and subcutaneous tissue Plan Pt has done well maintaining weight loss and has achieved a healthy BMI 18months postop without surgical complications. She is experiencing ongoing rashes of excess skin of abdomen; clotrimazole ointment ordered. The excess skin is also causing discomfort and limiting her range of motion, particularly in exercise. Labs ordered. RTC 2-3 months to assess efficacy of clotrimazole ointment for persistent rashes. Patient is at healthy BMI but with problems of excess skin of abdomen and is not considered stable at this time. I spent a total of 30 minutes reviewing/updating records, examining the patient and counseling the patient on weight management as detailed above. Medications: Refilled clotrimazole 1% 1 appl topical BID 45 grams 3RF Coding Level of Care Code Est Pt Level 4 (91488) Diagnoses S/P laparoscopic sleeve gastrectomy Z98.84 Excess skin L98.7
[2022-12-03 12:56] VITALS: BP 109/70; PULSE 77; TEMP 36.2; O2SAT 96; BMI 24.7
== END 2022-12-03 13:29 | disposition home or self-care (01) ==
PROVIDERS: PCP Nurse Practitioner Primary Care; Visit Provider Physician Assistant Surgical
DX: L98.7 Excessive and redundant skin and subcutaneous tissue (principal); Z98.84 Bariatric surgery status
CPT/HCPCS: 99214

== ENCOUNTER → 2022-12-03 12:47 | Outpatient (BNVA) | payer MEDICAID, SELFPAY | PROVIDERS: PCP Nurse Practitioner Primary Care; Visit Provider Physician Assistant Surgical | DX: L98.7 Excessive and redundant skin and subcutaneous tissue (principal); Z98.84 Bariatric surgery status | CPT/HCPCS: 99212 ==

== ENCOUNTER 2023-01-15 10:32 | Outpatient (AMB) | payer MEDICAID, SELFPAY ==
--- NOTE | 2023-01-15 10:41 | A.OFFVIS_ITS ---
Intake Vital Signs 01/15/23 10:44 Height 4 ft 11 in Weight 129 lb BMI 26.1 BP 109/71 Blood Pressure Location Rt brachial Position Sitting Pulse 75 Intake Visit Reasons: external hemorrhoids Intake Note: This patient presents for an assessment for external hemorrhoids. Patient c/o; Onset 16 years, denies rectal bleeding, reports Hx of constipation. 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 She says that she has had hemorrhoids for about 16 years now. She has had occasional problems with swelling and pain and discomfort. She says that the past few months, she has had more frequent episodes of pain and swelling. She says she even had an episode about weeks ago were in the hemorrhoids were very swollen and she could hardly sit down or even where under pants at that time. She denies any problems with constipation. She denies any anal surgery in the past. She never had vaginal delivery in the past as well. [facility] Medical History (Updated 01/15/23 @ 11:23 by Julian Vinson MD) Hemorrhoids with complication Liver fibrosis Pre-op evaluation Anemia Hematuria COVID-19 vaccine series completed History of COVID-19 BMI 37.0-37.9, adult BMI 36.0-36.9,adult Palpitations Back pain Migraines Neuropathy Sleep apnea with use of continuous positive airway pressure (CPAP) BMI 38.0-38.9,adult Obesity Surgical History S/P laparoscopic sleeve gastrectomy Hx of tubal ligation Hx of cystoscopy Hx of foot surgery Hx of foot surgery Hx of section Family History Mother Heart disease Hypertension Father Cancer Brother No problems noted. Brother No problems noted. Sister No problems noted. Son Asthma Son ADHD Daughter Migraine Paternal Aunt Breast cancer Maternal Grandfather Prostate cancer Paternal Aunt Ovarian cancer Family/Other Ovarian cancer Social History Are you a primary customer care consultant to a significant other at home: No Do you presently have visiting nurse or other home services: No Alcohol intake: never Patient Tobacco Use Status: Never used Tobacco service: No Current occupational status: unemployed Review of Systems Const Denies chills and Denies fever(s) Card Denies chest pain, Denies dyspnea and Denies dyspnea on exertion Resp Denies cough, Denies dyspnea and Denies dyspnea on exertion GI Denies hematochezia and Denies change in bowel habits Denies hematuria Musc Denies back pain and Denies limited range of motion Neuro Denies focal weakness and Denies convulsions Psych Denies depression and Denies mood swings Physical Exam Vital Signs: Last Vital Signs Pulse 75 01/15/23 10:44 BP 109/71 01/15/23 10:44 BMI result Body Mass Index 26.1 Const General: comfortable and no acute distress Orientation/consciousness: patient oriented x3 Neck Neck: Yes no lymphadenopathy Resp Auscultation: clear to auscultation bilaterally Cardio Rhythm: regular rhythm GI Other: External hemorrhoids, moderate size, right anterior, right and left posterior Palpation (GI): Soft to palpation, nontender and no guarding Neuro General: patient oriented x3 Office Procedures Anoscopy She was in shorty-knife position. The anoscope was gently inserted. A full examination of the anal canal was done. She did have these hemorrhoidal columns a mix of internal external as described above. There were no other lesions. There was no fissure. There was no bleeding. There was no induration on digital exam [id number] Assessment & Plan Assessment & Plan (1) Hemorrhoids with complication: Code(s): K64.8 - Other hemorrhoids Plan: She has internal and external hemorrhoidal columns as described above. These are non bulky but she says that he has been causing her more frequent problems with pain, swelling and discomfort. She says that these have been enough to aff ect her lifestyle and she wants to proceed with hemorrhoidectomy. I explained the technique of exam under anesthesia and hemorrhoidectomy. I reviewed the risks including but not limited to bleeding and infections as well as the benefits and alternatives. She understands and wants to proceed I also reviewed with her what to expect postoperatively. Coding Level of Care Code New Pt Level 3 (29970) Diagnoses Hemorrhoids with complication K64.8 CPT Codes Details - CPT: 53603-[id number] ([id number])
[2023-01-15 10:44] VITALS: BP 109/71; PULSE 75; BMI 26.1
== END 2023-01-15 11:28 | disposition home or self-care (01) ==
PROVIDERS: PCP Nurse Practitioner Primary Care; Visit Provider Surgery
DX: K64.8 Other hemorrhoids (principal)
CPT/HCPCS: 46600; 99203

== ENCOUNTER → 2023-01-15 10:32 | Outpatient (BNVA) | payer MEDICAID, SELFPAY | PROVIDERS: PCP Nurse Practitioner Primary Care; Visit Provider Surgery | DX: K64.8 Other hemorrhoids (principal) | CPT/HCPCS: 46600 ==

== ENCOUNTER 2023-02-07 06:52 | Day surgery (SDC) | payer MEDICAID, SELFPAY ==
[2023-02-05 14:35] VITALS: BMI 26.1
--- NOTE | 2023-02-06 10:11 | HO.ANESPROP2 ---
Documented by User: Khadijah Stein NP 02/06/23 10:11 HPI - Anesthesia Eval Consult details Narrative: 37yo F for Hemorrhoidectomy s/p tubal PMFSH Active Problems Active Problems: All Active Problems (Updated 02/06/23 @ 09:32 by Rachel Grady RN) Excess skin (Acute) Vomiting (Acute) Abdominal pain (Acute) BMI 31.0-31.9,adult (Acute) BMI 32.0-32.9,adult (Acute) Personal history of COVID-19 (Acute) BMI 35.0-35.9,adult (Acute) Migraine with aura and without status migrainosus, not intractable (Acute) Vitamin B12 deficiency (Acute) Vitamin D deficiency (Acute) Adjustment disorder, unspecified (Acute) Mild obstructive sleep apnea (Acute) Hemorrhoids with complication (Acute) S/P laparoscopic sleeve gastrectomy (Acute) Liver fibrosis (Acute) Palpitations (Acute) Back pain (Acute) Migraines (Acute) Neuropathy (Acute) Obesity (Acute) Past Medical History Medical History (Updated 02/06/23 @ 09:32 by Rachel Grady RN) Hemorrhoids with complication Liver fibrosis Pre-op evaluation Anemia Hematuria COVID-19 vaccine series completed History of COVID-19 Palpitations Back pain Migraines Neuropathy Sleep apnea with use of continuous positive airway pressure (CPAP) Obesity Family History Family History Mother Heart disease Hypertension Father Cancer Brother No problems noted. Brother No problems noted. Sister No problems noted. Son Asthma Son ADHD Daughter Migraine Paternal Aunt Breast cancer Maternal Grandfather Prostate cancer Paternal Aunt Ovarian cancer Family/Other Ovarian cancer Family history of problems with anesthesia: No Surgical History Surgical History S/P laparoscopic sleeve gastrectomy Hx of tubal ligation Hx of cystoscopy Hx of foot surgery Hx of foot surgery Hx of section History of Problems with Anesthesia: No Social History Social History Are you a primary palliative care physician to a significant other at home: No Do you presently have visiting nurse or other home services: No Alcohol intake: never Patient Tobacco Use Status: Never used Tobacco Are you DNR?: No Advance Directives: No Advance Directives Information Provided: Yes Nutrition Risks: No Nutritional Risk service: No Current occupational status: unemployed Meds Allergies Allergy/AdvReac Type Severity Reaction Status Date / Time shellfish derived Allergy Difficulty Verified 02/07/23 08:30 Breathing Home Medications Medication Instructions Recorded Confirmed Last Taken Type oxycodone 5 mg tablet 5 mg PO DAILY PRN severe pain 05/29/22 12/03/22 Unknown History pregabalin 50 mg capsule (Lyrica) 50 mg PO TID 05/29/22 01/15/23 Unknown History diclofenac sodium 1 % topical gel 2 g topical QID 09/02/22 01/15/23 Unknown History (Arthritis Pain (diclofenac)) lidocaine 4 % topical patch 1 patch topical DAILY PRN 09/02/22 01/15/23 Unknown History (Aspercreme (lidocaine)) oxycodone-acetaminophen 5 mg-325 tab PO 01/15/23 01/15/23 Unknown History mg tablet Exam Exam Date and Time: February 06, 2023 1011 Height,Weight and Vital Signs: Height 4 ft 11 in Weight 58.513 kg Assessment and Plan Assessment Anesthesia Assessment: Chart Reviewed Final Anesthetic Review Family History of Problems with Anesthesia: No History of Problems with Anesthesia: No Documented by User: Roger Mena MD 02/07/23 08:30 [facility] Past Medical History Medical History (Updated 02/06/23 @ 09:32 by Rachel Grady RN) Hemorrhoids with complication Liver fibrosis Pre-op evaluation Anemia Hematuria COVID-19 vaccine series completed History of COVID-19 Palpitations Back pain Migraines Neuropathy Sleep apnea with use of continuous positive airway pressure (CPAP) Obesity Patient : No Family History Family History Mother Heart disease Hypertension Father Cancer Brother No problems noted. Brother No problems noted. Sister No problems noted. Son Asthma Son ADHD Daughter Migraine Paternal Aunt Breast cancer Maternal Grandfather Prostate cancer Paternal Aunt Ovarian cancer Family/Other Ovarian cancer Surgical History Surgical History S/P laparoscopic sleeve gastrectomy Hx of tubal ligation Hx of cystoscopy Hx of foot surgery Hx of foot surgery Hx of section Social History Social History Are you a primary palliative care physician to a significant other at home: No Do you presently have visiting nurse or other home services: No Alcohol intake: never Patient Tobacco Use Status: Never used Tobacco Are you DNR?: No Advance Directives: No Advance Directives Information Provided: Yes Nutrition Risks: No Nutritional Risk service: No Current occupational status: unemployed Meds Allergies Allergy/AdvReac Type Severity Reaction Status Date / Time shellfish derived Allergy Difficulty Verified 02/07/23 08:30 Breathing Home Medications Medication Instructions Recorded Confirmed Last Taken Type oxycodone 5 mg tablet 5 mg PO DAILY PRN severe pain 05/29/22 12/03/22 Unknown History pregabalin 50 mg capsule (Lyrica) 50 mg PO TID 05/29/22 01/15/23 Unknown History diclofenac sodium 1 % topical gel 2 g topical QID 09/02/22 01/15/23 Unknown History (Arthritis Pain (diclofenac)) lidocaine 4 % topical patch 1 patch topical DAILY PRN 09/02/22 01/15/23 Unknown History (Aspercreme (lidocaine)) oxycodone-acetaminophen 5 mg-325 tab PO 01/15/23 01/15/23 Unknown History mg tablet Exam Airway Mallampati Class: I TM Dist: <=3cm Neck ROM: Full Loose/Missing/Broken Teeth: No Heart: ok Lungs: ok Assessment and Plan Assessment Anesthesia Assessment: Anesthesia Plan Discussed Final Anesthetic Review NPO: Yes ASA Class: III Final Preanesthetic Review: No Changes in Pt Med Stat, Meds/Allgs Chart Reviewed, Consent Obtained/Reviewed and Anes Risks/Benef Reviewed Patient Risk: Intermediate Procedure Risk: Intermediate Anesthetic Plan Anesthetic Plan: GA and Agree w/ Assess. and Plan Disposition: Standard PACU
[2023-02-07 06:59] VITALS: BP 103/65; PULSE 76; RESP 19; TEMP 36.1; O2SAT 98
[2023-02-07] MEDS: Lactated Ringers 1,000 ML 100 ML IVCONT (07:21)
--- NOTE | 2023-02-07 08:08 | MHC.SHP ---
Pre-Procedural Eval Section A Date of Service: 02/07/23 The patient is an INPATIENT: No Changes since office visit: No Cold of Flu in the past 2 weeks, No New Medical Problems, No Changes in Medication and No Patient answered all questions The History & Physical has been completed within 30 days and I have reviewed it.: Yes Section B Chief Complaint: Other hemorrhoids Allergies: Allergies Allergy/AdvReac Type Severity Reaction Status Date / Time shellfish derived Allergy Intermediate rash/itch/throat Verified 01/15/23 10:49 swelling Plan I have reviewed the history and physical and performed a pertinent physical examination on my patient. No changes have occurred unless specified. Time Spent With Patient Time: Total time managing care of this patient today ____ minutes.
--- NOTE | 2023-02-07 09:14 | P.OP_ITS ---
Operative Note Operative Note Date of Service: 02/07/23 Narrative: Preop diagnosis: hemorrhoids, internal external with pain and swelling Postop diagnosis: The same Procedure: Exam under anesthesia hemorrhoidectomy x2 columns Surgeon: Julian Vinson MD The patient is a 37-year-old female with complaints of frequent swelling and pain with her hemorrhoids. She wanted these removed. She understood the technique of hemorrhoidectomy. She was aware of the risks, benefits, and a lternatives She was brought the operating room. She was placed in prone shorty-knife position under general seizure via laryngeal mask airway. The buttocks were retracted with wide tape laterally. The perianal area was prepped and draped in the usual sterile fashion. A surgical time-out was done. The patient received Cefotan 2 g IV preoperatively . Examination of the anal orifice revealed medium-sized external hemorrhoid on the right anterior, and smaller hemorrhoidal on the left. I inserted the Moriah Marc retractor and examined the anal canal circumferentially. Again these 2 hemorrhoidal columns were noted and were seen to be a mix of internal and external. There were no lesions or any fissure I applied a Goodson grasper on the hemorrhoidal column on the right anterior to retract this out into the field. I made a [id number] stitch at each pedicle past the dentate line using chromic 3-0 stitch. I made an incision around this hemorrhoidal column to the perianal skin using blade 15. I excised this hemorrhoidal column above the plane of sphincters using scissors. I closed this incision with a running chromic 3-0 stitch. Additional hemostatic [id number] sutures were placed . I then retracted the hemorrhoidal column on the left side with a Goodson clamp. This was smaller than the right side. I made a figure of 8 stitch at the pedicle with a chromic 3-0. I made an incision around this column to the perianal skin using blade 15. I excised this hemorrhoidal column above the plane of sphincters along this incision using Metzenbaum scissors. I closed this incision with a running chromic 2-0 stitch I observed for hemostasis. Once hemostasis was confirmed, I proceeded to infiltrate the perianal area with cane 0.5% per postop all BARB The procedure was completed. She tolerated procedure well. There were no immediate complications. Estimated blood loss about 25 cc. The patient was extubated without difficulty and transferred to the recovery room with stable vital signs.
[2023-02-07 09:25] VITALS: BP 105/61; PULSE 73; RESP 14; TEMP 36.8; O2SAT 98
[2023-02-07 09:30] VITALS: BP 98/72; PULSE 77; RESP 18; O2SAT 99
[2023-02-07 09:35] VITALS: BP 107/67; PULSE 76; RESP 18; O2SAT 100
[2023-02-07] MEDS: Acetaminophen 325 MG TABLET 650 MG PO (09:35)
[2023-02-07] MEDS: oxyCODONE HCl Immed Release 5 MG TABLET 10 MG PO (09:36)
[2023-02-07 09:40] VITALS: BP 102/64; PULSE 70; RESP 18; TEMP 36.6; O2SAT 99
[2023-02-07 09:55] VITALS: BP 99/56; PULSE 81; RESP 18; TEMP 36.4; O2SAT 99
== END 2023-02-07 10:25 | disposition home or self-care (01) ==
PROVIDERS: PCP Nurse Practitioner Primary Care; Visit Provider Surgery
PROC: (CPT 46260; principal; 2023-02-07 08:30)
DX: K64.8 Other hemorrhoids (principal); K64.4 Residual hemorrhoidal skin tags; K74.00 Hepatic fibrosis, unspecified; D64.9 Anemia, unspecified; G62.9 Polyneuropathy, unspecified; G47.33 Obstructive sleep apnea (adult) (pediatric); E66.9 Obesity, unspecified; Z68.26 Body mass index [BMI] 26.0-26.9, adult; Z79.899 Other long term (current) drug therapy; Z99.89 Dependence on other enabling machines and devices; Z98.84 Bariatric surgery status; Z86.16 Personal history of COVID-19
CPT/HCPCS: 46260; 88304; J1885; J2250; J2405; J2704; J2795; J3010

== ENCOUNTER → 2023-02-07 06:52 | Outpatient (BNV) | payer MEDICAID, SELFPAY | PROVIDERS: PCP Nurse Practitioner Primary Care; Visit Provider Surgery | DX: K64.8 Other hemorrhoids (principal) | CPT/HCPCS: 46260 ==

== ENCOUNTER 2023-02-19 10:29 | Outpatient (AMB) | payer MEDICAID, SELFPAY ==
--- NOTE | 2023-02-19 10:32 | MHC.OFFVIS ---
Intake Vital Signs 02/19/23 10:38 Height 4 ft 11 in Weight 130 lb 4 oz BMI 26.3 BP 118/70 Blood Pressure Location Lt brachial Position Sitting Pulse 84 Intake Visit Reasons: S/P hemorrhoidectomy Intake Note: Patient is seen in office for post op assessment post hemorrhoidectomy. 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 She tolerated the procedure well. She denies any complaints at this time although admits that she had significant pain for the 1st 3 days postop. [facility] Medical History (Updated 02/06/23 @ 09:32 by Rachel Grady RN) Hemorrhoids with complication Liver fibrosis Pre-op evaluation Anemia Hematuria COVID-19 vaccine series completed History of COVID-19 Palpitations Back pain Migraines Neuropathy Sleep apnea with use of continuous positive airway pressure (CPAP) Obesity Surgical History (Updated 02/17/23 @ 15:07 by ILIR Johansen) H/O hemorrhoidectomy (02/07/23) S/P laparoscopic sleeve gastrectomy Hx of tubal ligation Hx of cystoscopy Hx of foot surgery Hx of foot surgery Hx of section Family History Mother Heart disease Hypertension Father Cancer Brother No problems noted. Brother No problems noted. Sister No problems noted. Son Asthma Son ADHD Daughter Migraine Paternal Aunt Breast cancer Maternal Grandfather Prostate cancer Paternal Aunt Ovarian cancer Family/Other Ovarian cancer Are you a primary lpn care manager to a significant other at home: No Do you presently have visiting nurse or other home services: No Alcohol intake: never Patient Tobacco Use Status: Never used Tobacco service: No Current occupational status: unemployed Review of Systems Const Denies chills and Denies fever(s) Card Denies chest pain, Denies dyspnea and Denies dyspnea on exertion Resp Denies cough, Denies dyspnea and Denies dyspnea on exertion GI Denies hematochezia and Denies change in bowel habits Denies hematuria Musc Denies back pain and Denies limited range of motion Neuro Denies focal weakness and Denies convulsions Psych Denies depression and Denies mood swings Physical Exam Const Other: Looks well, sitting down comfortably General: comfortable and no acute distress Resp Effort & Inspection: normal respiratory effort GI Other: Rectal exam shows that the hemostats are well healed, not infected, no discharge, no induration Assessment & Plan Assessment & Plan (1) Hemorrhoids with complication: Code(s): K64.8 - Other hemorrhoids Plan: Status post hemorrhoidectomy x2 columns. Her incisions are healing well. She feels well subjectively. I advised her to avoid straining and constipation. She can follow up on a p.r.n. basis. Coding Level of Care Code Global (92903) Diagnoses Hemorrhoids with complication K64.8
[2023-02-19 10:38] VITALS: BP 118/70; PULSE 84; BMI 26.3
== END 2023-02-19 10:44 | disposition home or self-care (01) ==
PROVIDERS: PCP Nurse Practitioner Primary Care; Visit Provider Surgery
DX: K64.8 Other hemorrhoids (principal)
CPT/HCPCS: 99024

== ENCOUNTER → 2023-02-19 10:29 | Outpatient (BNVA) | payer MEDICAID, SELFPAY | PROVIDERS: PCP Nurse Practitioner Primary Care; Visit Provider Surgery ==

== ENCOUNTER 2023-03-04 12:54 | Outpatient (AMB) | payer MEDICAID, SELFPAY ==
--- NOTE | 2023-03-04 12:59 | A.OFFVIS_ITS ---
Intake VS Expanded 03/04/23 13:04 BP 101/55 L Blood Pressure Location Rt brachial Blood Pressure Position Sitting Pulse 83 Pulse Source Pulse Oximeter Temp 97.6 F Temperature Source Temporal Artery Scan Pulse Oximetry 100 Oxygen Delivery Method Room Air Height 4 ft 11 in Weight 126 lb 9.6 oz BMI 25.6 Body Fat % 31.0 Body Fat Mass 39.2 Fat Free Mass 87.4 Visceral Fat Rating 4.0 Body Water % 49.5 Body Water Mass 62.6 Muscle Mass/Score 82.8 Basal Metabolic Rate/Score 1,216 Intake Visit Reasons: (OV) PO LSG 05/31/21 Allergies shellfish derived Allergy (Verified 03/04/23 13:03) Difficulty Breathing Medication List - Last Reconciled 03/04/23 by ELFEGO Patel clotrimazole 1% 1 appl topical BID diclofenac sodium 1% (Arthritis Pain (diclofenac)) 2 grams topical QID docusate sodium (Colace) 100 mg PO BID ibuprofen 600 mg PO Q6H PRN lidocaine 4% (Aspercreme (lidocaine)) 1 patch topical DAILY PRN lidocaine 4% 1 appl topical TID PRN oxycodone 5 mg PO DAILY PRN oxycodone-acetaminophen 5-325 mg (Percocet) 1 tab PO Q4-6H PRN oxycodone-acetaminophen 5-325 mg tabs PO pregabalin (Lyrica) 50 mg PO TID HPI HPI Comments History of Present Illness Details This?is a?37?yo female who is s/p LSG 05/31/2021. Presents for 21 month post op visit. Weight at last visit on 12/03/2022 was 122.2 pounds with a BMI of 24.7, weight today is 126.6 pounds, representing a 4.4 pound weight loss with a BMI today of 25.6.? No complaints of nausea, emesis, abdominal pain or reflux, or constipation. Had hemorrhoid surgery a few weeks ago with Dr. Vinson, planning to resume regular activity and meals now that she is recovering. Was not eating meal plan as closely because was cooking. Present meal plan includes: 2 Premier protein shakes, 1 egg, and 1 m eal (fish, chicken, or sometimes red meat-protein and vegetable) Currently taking reg MVI and vit D. Exercise routine includes: has had difficulty with exercise due to back pain, foot pain/nerve damage, seeing specialist for help with pain management If she does exercise, will use bicycle at home, or videos. Also will do core work. Got a gym membership since last visit, will walk on treadmill for 30 min plus elliptical 30 min, then alternates weight training upper body and lower body on alternating days Reports occasional rashes in skin fold of umbilicus, itchy. Has tried clotrimazole but this does not completely resolve the issue. Has to wear compressive or tight waistbands to hold the excess skin in place to prevent discomfort. She finds exercise to be more difficult as the excess skin will get in the way and limit range of motion, including with walking and other activities of daily living. She experiences discomfort due to the heaviness of the skin which worsens her back pain and chronic nerve pain. [facility] Medical History (Updated 02/06/23 @ 09:32 by Rachel Grady RN) Hemorrhoids with complication Liver fibrosis Pre-op evaluation Anemia Hematuria COVID-19 vaccine series completed History of COVID-19 Palpitations Back pain Migraines Neuropathy Sleep apnea with use of continuous positive airway pressure (CPAP) Obesity Surgical History H/O hemorrhoidectomy (02/07/23) S/P laparoscopic sleeve gastrectomy Hx of tubal ligation Hx of cystoscopy Hx of foot surgery Hx of foot surgery Hx of section Family History Mother Heart disease Hypertension Father Cancer Brother No problems noted. Brother No problems noted. Sister No problems noted. Son Asthma Son ADHD Daughter Migraine Paternal Aunt Breast cancer Maternal Grandfather Prostate cancer Paternal Aunt Ovarian cancer Family/Other Ovarian cancer Social History Are you a primary pet care assistant to a significant other at home: No Do you presently have visiting nurse or other home services: No Alcohol intake: never Patient Tobacco Use Status: Never used Tobacco service: No Current occupational status: unemployed Physical Exam Const General: cooperative, comfortable and no acute distress Orientation/consciousness: patient oriented x3 GI Other: soft, nontender, nondistended, incisions well healed, no hernia, no masses Grade II pannus, some discoloration around umbilicus/old erythema Neuro General: patient oriented x3 Assessment & Plan Assessment & Plan (1) Excess skin: Code(s): L98.7 - Excessive and redundant skin and subcutaneous tissue (2) S/P laparoscopic sleeve gastrectomy: Comment: 05/31/2021 Code(s): Z98.84 - Bariatric surgery status Plan Pt has done well maintaining weight loss 21 months after LSG. She plans to resume her meal plan and exercise regimen now that she is cleared to resume normal activities after hemorrhoid surgery. She is experiencing ongoing painful and itchy rashes of excess skin of abdomen, refractory to topical Rx treatment. The excess skin is also causing discomfort and limiting her range of motion, and is worsening her preexisting chronic back pain. Treatment with special clothing/binders have not improved these problems. Pt would benefit from definitive treatment of panniculectomy Photos taken today, will submit to insurance. Patient is with problems of excess skin of abdomen and is not considered stable at this time. I spent a total of 30 minutes reviewing/updating records, examining the patient and counseling the patient on weight management as detailed above.v Orders: Orders Insulin Today Z.84 - Bariatric surgery status Hemoglobin A1c Today Z98.84 - Bariatric surgery status Lipid Panel Today Z.84 - Bariatric surgery status IRON PROFILE Today Z98.84 - Bariatric surgery status Comprehensive Met. Panel Today Z.84 - Bariatric surgery status Zinc Today Z98.84 - Bariatric surgery status Vitamin A Today Z98.84 - Bariatric surgery status Ferritin Today Z98.84 - Bariatric surgery status Complete Blood Count Auto Diff Today Z98.84 - Bariatric surgery status Vitamin B12 and Folate Today Z98.84 - Bariatric surgery status C Reactive Protein Today Z98.84 - Bariatric surgery status Vitamin B1 Today Z98.84 - Bariatric surgery status TSH reflex Free T4 Today Z98.84 - Bariatric surgery status Vitamin D 25-OH Total Today Z98.84 - Bariatric surgery status Coding Level of Care Code Est Pt Level 4 (67416) Diagnoses Excess skin L98.7 S/P laparoscopic sleeve gastrectomy Z98.84
[2023-03-04 13:04] VITALS: BP 101/55; PULSE 83; TEMP 36.4; O2SAT 100; BMI 25.6
== END 2023-03-04 13:29 | disposition home or self-care (01) ==
PROVIDERS: PCP Nurse Practitioner Primary Care; Visit Provider Physician Assistant Surgical
DX: L98.7 Excessive and redundant skin and subcutaneous tissue (principal); Z98.84 Bariatric surgery status
CPT/HCPCS: 99214

== ENCOUNTER → 2023-03-04 12:54 | Outpatient (BNVA) | payer MEDICAID, SELFPAY | PROVIDERS: PCP Nurse Practitioner Primary Care; Visit Provider Physician Assistant Surgical | DX: E66.3 Overweight (principal); L98.7 Excessive and redundant skin and subcutaneous tissue; K64.8 Other hemorrhoids; Z68.25 Body mass index [BMI] 25.0-25.9, adult; Z90.3 Acquired absence of stomach [part of] | CPT/HCPCS: 99212 ==

== ENCOUNTER 2023-04-07 08:38 | Outpatient (AMB) | payer MEDICAID, SELFPAY ==
--- NOTE | 2023-04-07 08:41 | MHC.OFFVISWM ---
Intake VS Expanded 04/07/23 08:51 Height 4 ft 11 in Weight 129 lb 4 oz BMI 26.1 Body Fat % 34.8 Body Fat Mass 26.9 Fat Free Mass 84.4 Visceral Fat Rating 6 Body Water Mass 38.5 Basal Metabolic Rate/Score 1,187 Intake Visit Reasons: TV Pre Op Panniculectomy 04/16/23 Allergies shellfish derived Allergy (Intermediate, Verified 04/07/23 08:42) Difficulty Breathing Medication List - Last Reconciled 04/07/23 by Edwar Young MD clotrimazole 1% 1 appl topical BID diclofenac sodium 1% (Arthritis Pain (diclofenac)) 2 grams topical QID docusate sodium (Colace) 100 mg PO BID lidocaine 4% (Aspercreme (lidocaine)) 1 patch topical DAILY PRN lidocaine 4% 1 appl topical TID PRN oxycodone-acetaminophen 5-325 mg 1 tab PO BID pregabalin (Lyrica) 50 mg PO TID HPI TV Pre Op Panniculectomy 04/16/23 HPI Details Start time: 8.30AMam, End time: 8.59AM ?I spent 15 minutes speaking with the patient on the phone plus an additional 5 minutes reviewing and updating records for a total of 20 minutes HPI Comments History of Present Illness Details Overall weight loss: 59.6lbs, or 31.5% TBWL Is doing 1-2 meals (chicken or salad) PFSH Medical History (Updated 04/07/23 @ 08:54 by Edwar Young MD) Postgastrectomy malabsorption Sciatica Hemorrhoids with complication Liver fibrosis Pre-op evaluation Anemia Hematuria History of COVID-19 Palpitations Back pain Migraines Neuropathy Sleep apnea with use of continuous positive airway pressure (CPAP) Obesity Surgical History (Updated 04/04/23 @ 11:10 by Rosalba Sawyer RN) H/O hemorrhoidectomy (02/07/23) S/P laparoscopic sleeve gastrectomy Hx of tubal ligation Hx of cystoscopy Hx of foot surgery Hx of foot surgery Hx of section Family History Mother Heart disease Hypertension Father Cancer Brother No problems noted. Brother No problems noted. Sister No problems noted. Son Asthma Son ADHD Daughter Migraine Paternal Aunt Breast cancer Maternal Grandfather Prostate cancer Paternal Aunt Ovarian cancer Family/Other Ovarian cancer Social History Are you a primary caretaker resort to a significant other at home: No Do you presently have visiting nurse or other home services: No Alcohol intake: never Patient Tobacco Use Status: Never used Tobacco service: No Current occupational status: unemployed Assessment & Plan Assessment & Plan (1) Excess skin: Code(s): L98.7 - Excessive and redundant skin and subcutaneous tissue Plan: 1. Plan for panniculectomy. Risks of infection, bleeding, asymmetry, wound dehiscence and blood clots were discussed with the patient. 2. You will have a drain the abdomen that may stay a few weeks before it may be removed 3. You will need to be doing sponge baths the first 1-2 weeks. No showers. You need to have help at home to get you up and limit your activities as much as possible for at least the 4-6 weeks after surgery 4. We will arrange for a visiting nurse to come at home to help you with dressing changes and send me pictures of the procedures. We will send at your home supplies for the dressing changes. 5. Change nutritional plan 2 premade Premier shake (mixing 4oz of Premier shake with 4oz of low fat unsweetened almond milk) at 7am-9am and 10am-12pm, two Zone Perfect protein bars at 1pm-3pm and 4pm-6pm and one meal at 7pm (3 forks of protein and 3 forks of salad or vegetables). This will improve weight loss and healing after surgery. 6. Continue all vitamins 7. Stop Lyrica on 04/08/2023.. 8. Do blood work not fasting any day between Friday04/08/2023 and Friday04/11/23 and supervisor claims the antibiotic prescription from your pharmacy 9. Risks and complications were discussed the possibility of bleeding that may require transfusion, loss of the umbilicus, wound dehiscence or infection, dog ears , flap asymmetry. We also discussed the importance of strict avoidance of weight lifting. 10. Avoid aspirin, motrin, ibuprofen, Aleve, Advil, Naproxyn. Only Tylenol is OK Orders: Orders Comprehensive Met. Panel Today K91.2 - Postsurgical malabsorption, not elsewhere classified, Z90.3 - Acquired absence of stomach [part of] Vitamin A Today K91.2 - Postsurgical malabsorption, not elsewhere classified, Z90.3 - Acquired absence of stomach [part of] Hemoglobin A1c Today K91.2 - Postsurgical malabsorption, not elsewhere classified, Z90.3 - Acquired absence of stomach [part of] Lipid Panel Today K91.2 - Postsurgical malabsorption, not elsewhere classified, Z90.3 - Acquired absence of stomach [part of] Type and Screen Today K91.2 - Postsurgical malabsorption, not elsewhere classified, Z90.3 - Acquired absence of stomach [part of] Vitamin B12 Today K91.2 - Postsurgical malabsorption, not elsewhere classified, Z90.3 - Acquired absence of stomach [part of] Ferritin Today K91.2 - Postsurgical malabsorption, not elsewhere classified, Z90.3 - Acquired absence of stomach [part of] TSH reflex Free T4 Today K91.2 - Postsurgical malabsorption, not elsewhere classified, Z90.3 - Acquired absence of stomach [part of] Prothrombin Time INR Today K91.2 - Postsurgical malabsorption, not elsewhere classified, Z90.3 - Acquired absence of stomach [part of] Vitamin B1 Today K91.2 - Postsurgical malabsorption, not elsewhere classified, Z90.3 - Acquired absence of stomach [part of] C Reactive Protein Today K91.2 - Postsurgical malabsorption, not elsewhere classified, Z90.3 - Acquired absence of stomach [part of] Partial Thromboplastin Time Today K91.2 - Postsurgical malabsorption, not elsewhere classified, Z90.3 - Acquired absence of stomach [part of] Vitamin D 25-OH Total Today K91.2 - Postsurgical malabsorption, not elsewhere classified, Z90.3 - Acquired absence of stomach [part of] Complete Blood Count Auto Diff Today K91.2 - Postsurgical malabsorption, not elsewhere classified, Z90.3 - Acquired absence of stomach [part of] Zinc Today K91.2 - Postsurgical malabsorption, not elsewhere classified, Z90.3 - Acquired absence of stomach [part of] IRON PROFILE Today K91.2 - Postsurgical malabsorption, not elsewhere classified, Z90.3 - Acquired absence of stomach [part of] Telehealth Telehealth Location of provider rendering services: practice address Location of patient: address on file Patient Identification confirmed using: Name, : Yes Telehealth method: voice only Patient verbally consented to treatment: Yes Patient verbally consented to billing insurance company: Yes Patient informed of any privacy concerns related to visit: Yes Minutes spent on Phone/Video with Pt.: 20 Coding Level of Care Code Tele Est Pt Level 3 (99575) Diagnoses Excess skin L98.7 Time Spent (min) 20
[2023-04-07 08:51] VITALS: BMI 26.1
== END 2023-04-07 08:59 | disposition home or self-care (01) ==
LOC: HO.HBS 08:38
PROVIDERS: PCP Nurse Practitioner Primary Care; Visit Provider Surgery
DX: L98.7 Excessive and redundant skin and subcutaneous tissue (principal)
CPT/HCPCS: 99024

== ENCOUNTER → 2023-04-07 08:38 | Outpatient (BNVA) | payer MEDICAID, SELFPAY | PROVIDERS: PCP Nurse Practitioner Primary Care; Visit Provider Surgery ==

== ENCOUNTER 2023-04-08 08:45 | Outpatient (REF) | payer MEDICAID, SELFPAY ==
[2023-04-08 09:09] LABS: MANUAL DIFF FLAG NO
[2023-04-08 09:16] LABS: Basophils Percent Auto 0.8 % (0-2); Eosinophils Absolute Auto 0.1 X10*3/uL (0.0-0.4); Eosinophils Percent Auto 1.1 % (0-4); Hematocrit 38.7 % (37.0-47.0); Hemoglobin 12.8 g/dl (12.0-16.0); Imm Gran Abs Auto 0.02 X10*3/uL (0.00-0.03); Imm Gran Pct Auto 0.4 % (0.0-0.4); Lymphocytes Absolute Auto 1.9 X10*3/uL (1.2-4.9); Lymphocytes Percent Auto 40.4 % (20-40); Mean Corpuscular HGB Conc 33.1 g/dl (31.0-35.0); Mean Corpuscular Hemoglobin 30.5 pg (27.0-33.0); Mean Corpuscular Volume 92.4 fL (80.0-98.0); Mean Platelet Volume 10.5 fL (9.4-12.3); Monocytes Absolute Auto 0.4 X10*3/uL (0.1-1.2); Monocytes Percent Auto 8.5 % (2-11); Neutrophils Absolute Auto 2.3 x10*3/uL (2.0-8.3); Neutrophils Percent Auto 48.8 % (45-73); Platelet Count 261 X10*3/uL (160-400); Red Blood Count 4.19 X10*6/uL (4.20-5.50); Red Cell Distribution Width 12.1 % (11.0-16.0); White Blood Count 4.7 X10*3/uL (4.8-10.8)
[2023-04-08 09:23] LABS: INTERNATIONAL NORM RATIO 0.9 (0.9-1.1); Prothrombin Time 11.4 SEC (11.1-13.3)
[2023-04-08 09:26] LABS: Partial Thromboplastin Time 29.9 SEC (26.0-36.4)
[2023-04-08 09:27] LABS: Estimated Average Glucose 82 mg/dL; Hemoglobin A1c % 4.5 % (<6.0)
[2023-04-08 10:09] LABS: Alanine Aminotransferase 15 U/L (0-31); Albumin Level 4.7 g/dL (3.5-5.0); Alkaline Phosphatase 53 U/L (39-117); Anion Gap 12 (12-20); Aspartate Amino Transferase 18 U/L (5-31); Bilirubin Total 0.7 mg/dL (0.0-1.0); Blood Urea Nitrogen 17 mg/dL (9-16); C Reactive Protein 0.13 mg/dL (< or = 0.50); Calcium 9.9 mg/dL (8.4-10.2); Carbon Dioxide 25 mmol/L (22-29); Chloride 106 mmol/L (96-108); Cholesterol 156 mg/dL (<200); Estimated Glomerular Filt Rate > 60; Glucose Random 89 mg/dL (60-115); HDL Cholesterol 68 mg/dL (>40); Iron 132 mcg/dL (30-160); LDL Cholesterol Calculated 80 mg/dL (<100); Percent Iron Saturation 42 % (15-50); Potassium 3.9 mmol/L (3.3-5.1); Sodium 139 mmol/L (135-145); Total Iron Binding Capacity 316 mcg/dL (228-428); Total Protein 7.6 g/dL (6.5-8.0); Triglycerides 41 mg/dL (<150); Unsaturated Iron Binding 184 ug/dL
[2023-04-08 10:16] LABS: Ferritin 27 ng/mL (10-122); TSH reflex Free T4 2.35 uIU/mL (0.32-4.0); Vitamin D 25-OH Total 27.6 ng/mL (>30)
[2023-04-08 10:24] LABS: Vitamin B12 530 pg/mL (200-900)
[2023-04-12 08:25] LABS: Zinc 74 mcg/dL (60-130)
[2023-04-13 16:09] LABS: Vitamin B1 12 nmol/L (8-30)
[2023-04-14 09:14] LABS: Vitamin A 54 mcg/dL (38-98)
== END 2023-04-08 08:46 | disposition home or self-care (01) ==
LOC: HO.LAB 08:45
PROVIDERS: PCP Nurse Practitioner Primary Care; Visit Provider Surgery
DX: K91.2 Postsurgical malabsorption, not elsewhere classified (principal); Z90.3 Acquired absence of stomach [part of]
CPT/HCPCS: 36415; 80053; 80061; 82306; 82607; 82728; 83036; 83540; 84425; 84443; 84590; 84630; 85025; 85610; 85730; 86140

== ENCOUNTER 2023-04-16 06:02 | Day surgery (SDC) | payer MEDICAID, SELFPAY ==
[2023-04-04 11:34] VITALS: BMI 26.3
--- NOTE | 2023-04-11 23:54 | MHC.SHP ---
Pre-Procedural Eval Section A Date of Service: 04/11/23 The patient is an INPATIENT: No The History & Physical has been completed within 30 days and I have reviewed it.: Yes Section B Chief Complaint: Excessive and redundant skin and subcutaneous tiss Relevant Family History (Specify if Yes): No Relevant Social History: None Present Medications: None Medical History: No relevant PMH History of Previous Operations: Relevant previous surgery/procedure and date(s) (laparoscopic sleeve gastrectomy) Allergies: Allergies Allergy/AdvReac Type Severity Reaction Status Date / Time shellfish derived Allergy Intermediate Difficulty Verified 04/07/23 08:42 Breathing Review of Systems Sugical H&P ROS: Negative: Constitution, Cardiovascular, Respiratory, Neurological, Psychiatric, Hem-Onc, Allergic/Immunologic, Gastrointestinal, Genitourinary, Musculoskeletal, Integumentary, Endocrine and Eyes/Ears/Nose/Throat Exam Surgical H&P Exam: Normal: HEENT, Normal: Heart, Normal: Lungs, Normal: Extremities, Normal: Abdomen, Normal: Skin and Normal: Neurological Plan Diagnosis/Plan: Unchanged I have reviewed the history and physical and performed a pertinent physical examination on my patient. No changes have occurred unless specified. Time Spent With Patient Time: Total time managing care of this patient today ____ minutes.
--- NOTE | 2023-04-14 12:12 | HO.ANESPROP2 ---
Documented by User: Khadijah Stein NP 04/14/23 12:14 HPI - Anesthesia Eval Consult details Narrative: 37yo F for Panniculectomy s/p sleeve 2021 s/p hemmorhoidectomy 01/2023 with GA-LMA 4 PMFSH Active Problems Active Problems: All Active Problems (Updated 04/07/23 @ 08:54 by Edwar Young MD) Postgastrectomy malabsorption (Acute) Excess skin (Acute) Vomiting (Acute) Abdominal pain (Acute) BMI 31.0-31.9,adult (Acute) BMI 32.0-32.9,adult (Acute) Personal history of COVID-19 (Acute) BMI 35.0-35.9,adult (Acute) Migraine with aura and without status migrainosus, not intractable (Acute) Vitamin B12 deficiency (Acute) Vitamin D deficiency (Acute) Adjustment disorder, unspecified (Acute) Mild obstructive sleep apnea (Acute) Hemorrhoids with complication (Acute) S/P laparoscopic sleeve gastrectomy (Acute) Liver fibrosis (Acute) Palpitations (Acute) Back pain (Acute) Migraines (Acute) Neuropathy (Acute) Obesity (Acute) Past Medical History Medical History Postgastrectomy malabsorption Sciatica Hemorrhoids with complication Liver fibrosis Pre-op evaluation Anemia Hematuria History of COVID-19 Palpitations Back pain Migraines Neuropathy Sleep apnea with use of continuous positive airway pressure (CPAP) Obesity Family History Family History Mother Heart disease Hypertension Father Cancer Brother No problems noted. Brother No problems noted. Sister No problems noted. Son Asthma Son ADHD Daughter Migraine Paternal Aunt Breast cancer Maternal Grandfather Prostate cancer Paternal Aunt Ovarian cancer Family/Other Ovarian cancer Family history of problems with anesthesia: No Surgical History Surgical History H/O hemorrhoidectomy (02/07/23) S/P laparoscopic sleeve gastrectomy Hx of tubal ligation Hx of cystoscopy Hx of foot surgery Hx of foot surgery Hx of section History of Problems with Anesthesia: No Social History Social History Are you a primary caretaker grounds to a significant other at home: No Do you presently have visiting nurse or other home services: No Alcohol intake: never Patient Tobacco Use Status: Never used Tobacco Use of substances other than those prescribed or required for medical reasons: No Have you been hit, kicked, punched, or otherwise hurt by someone within the past year? If so, by whom?: No Are you DNR?: No Advance Directives: No Advance Directives Information Provided: Yes Advance Directives on File: No Recently lost weight without trying: No Eating poorly because of decreased appetite: No Nutrition Risks: No Nutritional Risk Patient : No FDLMP: 03/09/23 : No Poor oral hygiene: No service: No Current occupational status: unemployed Meds Allergies Allergy/AdvReac Type Severity Reaction Status Date / Time shellfish derived Allergy Intermediate Difficulty Verified 04/07/23 08:42 Breathing Home Medications Medication Instructions Recorded Confirmed Last Taken Type pregabalin 50 mg capsule (Lyrica) 50 mg PO TID 05/29/22 04/07/23 Unknown History diclofenac sodium 1 % topical gel 2 g topical QID 09/02/22 04/07/23 Unknown History (Arthritis Pain (diclofenac)) lidocaine 4 % topical patch 1 patch topical DAILY PRN Pain 09/02/22 04/07/23 Unknown History (Aspercreme (lidocaine)) oxycodone-acetaminophen 5 mg-325 1 tab PO BID neuropathy pain 01/15/23 04/07/23 Unknown History mg tablet Exam Height,Weight and Vital Signs: Height 4 ft 11 in Weight 58.967 kg Pertinent Lab Results Pertinent Lab Results: Laboratory Tests 04/08/23 09:05 Blood Type O Positive Antibody Screen NEGATIVE Laboratory Tests 04/08/23 09:05 WBC 4.7 L Hgb 12.8 Hct 38.7 Plt Count 261 Sodium 139 Potassium 3.9 Chloride 106 Carbon Dioxide 25 BUN 17 H Creatinine 0.86 Assessment and Plan Assessment Anesthesia Assessment: Chart Reviewed Final Anesthetic Review Family History of Problems with Anesthesia: No History of Problems with Anesthesia: No Documented by User: Jose Gregg MD 04/16/23 06:49 PMFSH Past Medical History Medical History Postgastrectomy malabsorption Sciatica Hemorrhoids with complication Liver fibrosis Pre-op evaluation Anemia Hematuria History of COVID-19 Palpitations Back pain Migraines Neuropathy Sleep apnea with use of continuous positive airway pressure (CPAP) Obesity Family History Family History Mother Heart disease Hypertension Father Cancer Brother No problems noted. Brother No problems noted. Sister No problems noted. Son Asthma Son ADHD Daughter Migraine Paternal Aunt Breast cancer Maternal Grandfather Prostate cancer Paternal Aunt Ovarian cancer Family/Other Ovarian cancer Surgical History Surgical History H/O hemorrhoidectomy (02/07/23) S/P laparoscopic sleeve gastrectomy Hx of tubal ligation Hx of cystoscopy Hx of foot surgery Hx of foot surgery Hx of section Social History Social History Are you a primary caretaker grounds to a significant other at home: No Do you presently have visiting nurse or other home services: No Alcohol intake: never Patient Tobacco Use Status: Never used Tobacco Use of substances other than those prescribed or required for medical reasons: No Have you been hit, kicked, punched, or otherwise hurt by someone within the past year? If so, by whom?: No Are you DNR?: No Advance Directives: No Advance Directives Information Provided: Yes Advance Directives on File: No Recently lost weight without trying: No Eating poorly because of decreased appetite: No Nutrition Risks: No Nutritional Risk Patient : No FDLMP: 03/09/23 : No Poor oral hygiene: No service: No Current occupational status: unemployed Meds Allergies Allergy/AdvReac Type Severity Reaction Status Date / Time shellfish derived Allergy Intermediate Difficulty Verified 04/07/23 08:42 Breathing Home Medications Medication Instructions Recorded Confirmed Last Taken Type pregabalin 50 mg capsule (Lyrica) 50 mg PO TID 05/29/22 04/07/23 Unknown History diclofenac sodium 1 % topical gel 2 g topical QID 09/02/22 04/07/23 Unknown History (Arthritis Pain (diclofenac)) lidocaine 4 % topical patch 1 patch topical DAILY PRN Pain 09/02/22 04/07/23 Unknown History (Aspercreme (lidocaine)) oxycodone-acetaminophen 5 mg-325 1 tab PO BID neuropathy pain 01/15/23 04/07/23 Unknown History mg tablet Exam Airway Mallampati Class: II TM Dist: <=3cm Neck ROM: Full Loose/Missing/Broken Teeth: No Heart: RRR+[id number] Lungs: CTA B/L Assessment and Plan Assessment Anesthesia Assessment: Anesthesia Plan Discussed Final Anesthetic Review NPO: Yes ASA Class: II Final Preanesthetic Review: No Changes in Pt Med Stat, Meds/Allgs Chart Reviewed, Consent Obtained/Reviewed and Anes Risks/Benef Reviewed Patient Risk: Intermediate Procedure Risk: Intermediate Assessment/Block/Sedation in SS: Assess/Block/Sedation-SS Anesthetic Plan Anesthetic Plan: GA Disposition: Standard PACU
[2023-04-16] VITALS (10 sets, daily range): BP systolic 99–119; BP diastolic 61–75; PULSE 65–98; RESP 10–18; TEMP 36.5–37.1; O2SAT 99–100; BMI 26.5
[2023-04-16] MEDS: Lactated Ringers 1,000 ML 100 ML IVCONT (06:46)
--- NOTE | 2023-04-16 07:51 | PM.OP ---
Brief Operative Note Date of Service: 04/16/23 Pre-op diagnosis: Excess skin Post-op diagnosis: same Procedure: PROCEDURE: Panniculectomy with umbilical transposition and bilateral subcutaneous fat flaps INDICATION: This a 41 year old female who underwent laparoscopic sleeve gastrectomy on 05/31/2021. She had an excellent result achieving a BMI of 26.2 kg/m2 with a total weight loss of 59.6lbs, or 31.5% of her TBWL. As a result, she has developed panniculitis which has not resolved despite continuous use of clotrimazole ointment as well as skin irritation. On exam she has extreme skin laxity due to massive weight loss, with the abdominal pannus completely hanging 4cm below the pubis. Panniculectomy was recommended. We discussed the two options for the panniculectomy of using a combined vertical and horizontal incisions or just a horizontal (bikini) incision. It was my recommendation to do only horizontal incision based on her body habitus and skin laxity. The patient agreed with this. Risks and complications were discussed with the patient including bleeding, infection, umbilical loss, flap necrosis, asymmetry, dehiscence, seroma, VTE. The patient understood the risks and was in agreement to proceed with surgery. PROCEDURE: The incisions were appropriately marked at the preop area with the patient standing and laying down. After induction of general anesthesia a Stevens catheter and pneumatic compression devices were placed. The patient was prepped and draped in the usual sterile manner and the incisions were marked again and confirmed. The skin was infiltrated with lidocaine and epinephrine. The #10 blade scalpel was used for the large incisions and the #15 blade scalpel for the umbilicus. Cautery was used to divide the subcutaneous tissues until the fascia was identified. Then I used the cautery to separate the pannus from the fascia. The inferior incision was made initially and I mobilized the flap for a several centimeters cephalad to the umbilicus. The umbilicus was incised circumferentially and detached from the surrounding tissues all the way to the fascia while its stalk was preserved. With the patient in reflex position I confirmed that the skin flaps were appropriate and would allow for the tissues to come together with reasonable tension. At that point a horizontal incision was made 4 cm above the umbilicus. #10 blade was used for the skin, cautery for the dermis and for the remaining tissues. A subcutaneous fat flap was raised from the upper skin flap in order to fill the space under the skin and support the closure of the two flaps. In addition the inferior flap was mobilized caudally for a few centimeters to create a space for the subcutaneous fat flap as well as relieve tension from the closure. A circumferential incision was made at the area where the umbilicus would be re-implanted. The umbilicus was appropriately oriented and was delivered through the defect and was secured in place with a Marcello. No bleeding was noted anywhere. One SANDY drain was placed from the left corner of the horizontal incision across the wound and was secured in place with a silk suture. A total of 7ml of Zynrelef was applied on top of the fascia and under the subcutaneous fat flaps. The subcutaneous fat flap was secured under the inferior flap with several interrupted 3.0 Monocryl sutures. The two flaps were brought together and were attached at the midline of the horizontal incision with a #3.0 Monocryl suture. At that point the umbilicus was properly oriented and was re-approximated to the skin with 8 interrupted 3.0 Monocryl sutures. In a similar fashion the skin flaps were re-approximated with multiple 3.0 Monocryl sutures. The skin was closed in all incisions and umbilicus with 4.0 Monocryl sutures. Steri-strips, xeroform gauzes and gauzes were used to cover the incisions. An abdominal binder was also placed. The was awaken and was transferred to the recover room in a stable condition. I was present and performed the entire procedure. Dino Yuan was the respiratory therapist assistant. Bret Young MD, PhD, FACS Surgeon: Edwar Young MD Surgeon: Edwar Young MD Anesthesia: GETA, local and other (7ml Zynrelef) Was an Equipment Records Supervisor used for this Procedure?: No Equipment Records Supervisor: Jamaal Yuan Estimated blood loss (mL): 10 IV fluids (mL): 1,500 Urine output (mL): 135 Pathology: other (Abdominal pannus) Condition: stable Disposition: PACU
[2023-04-16] MEDS: ondansetron HCL 4 MG/2 ML VIAL IVPUSH (12:44)
[2023-04-16] MEDS: oxyCODONE HCl Immed Release 5 MG TABLET PO (13:25)
--- NOTE | 2023-04-16 14:56 | PC.NURSE ---
PATIENT STATED FEELING NAUSEOUS. THIS RN HAD DR. CASTANO ACCESS PATIENT. PATIENT STATED FEELING LESS NAUSEOUS AFTER A FEW MINUTES. DR. CASTANO ACCESSED AND SPOKE WITH PATIENT AND PATIENT REFUSED OFFER OF ANTIEMETIC AT THIS TIME. DR. CASTANO GAVE PATIENT A SHONA JOY COOKIE R/T LOW GRAMS OF SUGAR, BUT TO GET SOMETHING IN THE PATIENT R/T NAUSEA.
== END 2023-04-16 14:30 | disposition home or self-care (01) ==
PROVIDERS: Visit Provider Surgery
PROC: 0JB80ZZ Excision of Abdomen Subcutaneous Tissue and Fascia, Open Approach (ICD-10-PCS; CPT 15830; principal; 2023-04-16 07:30)
DX: L98.7 Excessive and redundant skin and subcutaneous tissue (principal); Z98.84 Bariatric surgery status
CPT/HCPCS: 15830; 86850; 86900; 86901; 88304; C9088; J0131; J0690; J1100; J1170; J2250; J2405; J2704; J3010; J3370

== ENCOUNTER → 2023-04-16 06:02 | Outpatient (BNV) | payer MEDICAID, SELFPAY | PROVIDERS: Visit Provider Surgery | DX: L98.7 Excessive and redundant skin and subcutaneous tissue (principal) | CPT/HCPCS: 15830 ==

== ENCOUNTER 2023-04-23 10:17 | Outpatient (AMB) | payer MEDICAID, SELFPAY ==
--- NOTE | 2023-04-23 10:20 | MHC.OFFVISWM ---
Intake VS Expanded 04/23/23 10:45 BP 117/67 Blood Pressure Location Rt brachial Blood Pressure Position Sitting Pulse 91 Pulse Source Pulse Oximeter Temp 97.8 F Temperature Source Temporal Artery Scan Pulse Oximetry 100 Oxygen Delivery Method Room Air Intake Visit Reasons: (OV) PO Panniculectomy 04/16/23 Allergies shellfish derived Allergy (Intermediate, Verified 04/23/23 10:45) Difficulty Breathing HPI HPI Comments History of Present Illness Details Pleasant 37-year-old female returns to the office today in follow-up. She is status post panniculectomy on 04/16/2023. She reports she is continuing to follow the meal plan as directed by Dr. Young. She is continuing her antibiotics. She states approximately 20-25 mL of serosanguineous fluid from the collection bulb daily. She denies any significant pain and has no concerns at today's visit. [facility] Medical History Postgastrectomy malabsorption Sciatica Hemorrhoids with complication Liver fibrosis Pre-op evaluation Anemia Hematuria History of COVID-19 Palpitations Back pain Migraines Neuropathy Sleep apnea with use of continuous positive airway pressure (CPAP) Obesity Surgical History H/O hemorrhoidectomy (02/07/23) S/P laparoscopic sleeve gastrectomy Hx of tubal ligation Hx of cystoscopy Hx of foot surgery Hx of foot surgery Hx of section Family History Mother Heart disease Hypertension Father Cancer Brother No problems noted. Brother No problems noted. Sister No problems noted. Son Asthma Son ADHD Daughter Migraine Paternal Aunt Breast cancer Maternal Grandfather Prostate cancer Paternal Aunt Ovarian cancer Family/Other Ovarian cancer Social History Are you a primary care team coordinator scheduler to a significant other at home: No Do you presently have visiting nurse or other home services: No Alcohol intake: never Patient Tobacco Use Status: Never used Tobacco service: No Current occupational status: unemployed Physical Exam Skin Other: Transverse incision is healing nicely. No evidence of dehiscence or infection. Umbilicus is viable. Assessment & Plan Assessment & Plan (1) S/P panniculectomy: Code(s): Z98.890 - Other specified postprocedural states Plan: Overall, patient is doing well and is satisfied with her results at this point. She will continue with her current meal plan, antibiotics, abdominal binder. She will return to the office in 1 week. She was again instructed to continue to monitor output via drain on a daily basis. Coding Level of Care Code Global (52824) Diagnoses S/P panniculectomy Z98.890
[2023-04-23 10:45] VITALS: BP 117/67; PULSE 91; TEMP 36.6; O2SAT 100
== END 2023-04-23 10:55 | disposition home or self-care (01) ==
PROVIDERS: PCP Nurse Practitioner Primary Care; Visit Provider Physician Assistant Surgical
DX: L98.7 Excessive and redundant skin and subcutaneous tissue (principal)
CPT/HCPCS: 99024

== ENCOUNTER → 2023-04-23 10:17 | Outpatient (BNVA) | payer MEDICAID, SELFPAY | PROVIDERS: PCP Nurse Practitioner Primary Care; Visit Provider Physician Assistant Surgical | DX: Z98.890 Other specified postprocedural states (principal) | CPT/HCPCS: 99212 ==

== ENCOUNTER 2023-04-30 11:39 | Outpatient (AMB) | payer MEDICAID, SELFPAY ==
--- NOTE | 2023-04-30 11:43 | MHC.OFFVISWM ---
Intake VS Expanded 04/30/23 11:48 BP 102/63 Blood Pressure Location Rt brachial Blood Pressure Position Sitting Pulse 82 Pulse Source Pulse Oximeter Temp 96.4 F L Temperature Source Tympanic Pulse Oximetry 100 Oxygen Delivery Method Room Air Intake Visit Reasons: (OV) PO Panniculectomy 04/16/23 Allergies shellfish derived Allergy (Intermediate, Verified 04/30/23 11:48) Difficulty Breathing HPI HPI Comments History of Present Illness Details Patient is a pleasant 37-year-old female who returns to the office today in follow-up. She is status post panniculectomy on 04/16/2023. She reports proximally 15-20 mL of serosanguineous fluid via the collection bulb on a daily basis. She continues antibiotics and meal plan as given her by Dr. Young. She has no complaints at today's visit. [facility] Medical History Postgastrectomy malabsorption Sciatica Hemorrhoids with complication Liver fibrosis Pre-op evaluation Anemia Hematuria History of COVID-19 Palpitations Back pain Migraines Neuropathy Sleep apnea with use of continuous positive airway pressure (CPAP) Obesity Surgical History H/O hemorrhoidectomy (02/07/23) S/P laparoscopic sleeve gastrectomy Hx of tubal ligation Hx of cystoscopy Hx of foot surgery Hx of foot surgery Hx of section Family History Mother Heart disease Hypertension Father Cancer Brother No problems noted. Brother No problems noted. Sister No problems noted. Son Asthma Son ADHD Daughter Migraine Paternal Aunt Breast cancer Maternal Grandfather Prostate cancer Paternal Aunt Ovarian cancer Family/Other Ovarian cancer Social History Are you a primary animal care service worker to a significant other at home: No Do you presently have visiting nurse or other home services: No Alcohol intake: never Patient Tobacco Use Status: Never used Tobacco service: No Current occupational status: unemployed Physical Exam Vital Signs: Last Vital Signs Temp 96.4 F L 04/30/23 11:48 Pulse 82 04/30/23 11:48 BP 102/63 04/30/23 11:48 Pulse Ox 100 04/30/23 11:48 Oxygen Delivery Method Room Air 04/30/23 11:48 GI Inspection: Yes incision (Clean, dry, intact.) Assessment & Plan Assessment & Plan (1) S/P panniculectomy: Code(s): Z98.890 - Other specified postprocedural states Plan: Continue to monitor drain output. Continue antibiotics and meal plan. Continue dressings and return to clinic in 1 week. Coding Level of Care Code Global (32311) Diagnoses S/P panniculectomy Z98.890
[2023-04-30 11:48] VITALS: BP 102/63; PULSE 82; TEMP 35.8; O2SAT 100
== END 2023-04-30 12:30 | disposition home or self-care (01) ==
PROVIDERS: PCP Nurse Practitioner Primary Care; Visit Provider Physician Assistant Surgical
DX: Z98.890 Other specified postprocedural states (principal)
CPT/HCPCS: 99024

== ENCOUNTER → 2023-04-30 11:39 | Outpatient (BNVA) | payer MEDICAID, SELFPAY | PROVIDERS: PCP Nurse Practitioner Primary Care; Visit Provider Physician Assistant Surgical | DX: Z48.89 Encounter for other specified surgical aftercare (principal) | CPT/HCPCS: 99212 ==

== ENCOUNTER 2023-05-07 09:51 | Outpatient (AMB) | payer MEDICAID, SELFPAY ==
--- NOTE | 2023-05-07 09:54 | MHC.OFFVISWM ---
Intake VS Expanded 05/07/23 10:02 BP 115/63 Blood Pressure Location Rt brachial Blood Pressure Position Sitting Pulse 82 Pulse Source Pulse Oximeter Temp 98.5 F Temperature Source Temporal Artery Scan Pulse Oximetry 99 Oxygen Delivery Method Room Air Intake Visit Reasons: (OV) PO Panniculectomy 04/16/23 Allergies shellfish derived Allergy (Intermediate, Verified 05/07/23 10:03) Difficulty Breathing HPI HPI Comments History of Present Illness Details The patient is a pleasant 38-year-old female who returns to the office today in follow-up. She underwent panniculectomy on 04/16/2023. She has continued her antibiotics, meal plan, noticed and documented approximately 15 mL of serous fluid daily over the last 10 days from the collection bulb. She has no complaints at today's visit. [facility] Medical History Postgastrectomy malabsorption Sciatica Hemorrhoids with complication Liver fibrosis Pre-op evaluation Anemia Hematuria History of COVID-19 Palpitations Back pain Migraines Neuropathy Sleep apnea with use of continuous positive airway pressure (CPAP) Obesity Surgical History (Updated 05/07/23 @ 10:07 by Niesha Fontanez CMA) S/P panniculectomy H/O hemorrhoidectomy (02/07/23) S/P laparoscopic sleeve gastrectomy Hx of tubal ligation Hx of cystoscopy Hx of foot surgery Hx of foot surgery Hx of section Family History Mother Heart disease Hypertension Father Cancer Brother No problems noted. Brother No problems noted. Sister No problems noted. Son Asthma Son ADHD Daughter Migraine Paternal Aunt Breast cancer Maternal Grandfather Prostate cancer Paternal Aunt Ovarian cancer Family/Other Ovarian cancer Social History Are you a primary director of home care hospice to a significant other at home: No Do you presently have visiting nurse or other home services: No Alcohol intake: never Patient Tobacco Use Status: Never used Tobacco service: No Current occupational status: unemployed Physical Exam Skin Other: Transverse incision and umbilicus healing very nicely. Assessment & Plan Assessment & Plan (1) S/P panniculectomy: Code(s): Z98.890 - Other specified postprocedural states Plan: Oli drain removed without difficulty. She was instructed to avoid showering for 48 hours. She may then shower but avoid submersion into a bath or body of water. Continue abdominal binder. Continue antibiotics for 2 more weeks. Continue meal plan per Dr. Young. Return to clinic in 2 weeks. Coding Level of Care Code Global (95217) Diagnoses S/P panniculectomy Z98.890
[2023-05-07 10:02] VITALS: BP 115/63; PULSE 82; TEMP 36.9; O2SAT 99
== END 2023-05-07 10:23 | disposition home or self-care (01) ==
PROVIDERS: PCP Nurse Practitioner Primary Care; Visit Provider Physician Assistant Surgical
DX: Z98.890 Other specified postprocedural states (principal)
CPT/HCPCS: 99024

== ENCOUNTER → 2023-05-07 09:51 | Outpatient (BNVA) | payer MEDICAID, SELFPAY | PROVIDERS: PCP Nurse Practitioner Primary Care; Visit Provider Physician Assistant Surgical | DX: Z98.890 Other specified postprocedural states (principal) | CPT/HCPCS: 99212 ==

== ENCOUNTER 2023-05-27 13:57 | Outpatient (AMB) | payer MEDICAID, SELFPAY ==
[2023-05-27 14:42] VITALS: BP 107/58; PULSE 86; TEMP 36.4; O2SAT 97; BMI 27.0
--- NOTE | 2023-05-27 14:42 | MHC.OFFVISWM ---
Intake VS Expanded 05/27/23 14:42 BP 107/58 L Blood Pressure Location Rt brachial Blood Pressure Position Sitting Pulse 86 Pulse Source Pulse Oximeter Temp 97.6 F Temperature Source Temporal Artery Scan Pulse Oximetry 97 Oxygen Delivery Method Room Air Height 4 ft 11 in Weight 133 lb 12.8 oz BMI 27.0 Body Fat % 32.3 Body Fat Mass 43.2 Fat Free Mass 90.4 Visceral Fat Rating 5 Body Water % 48.5 Body Water Mass 64.8 Muscle Mass/Score 85.8 Basal Metabolic Rate/Score 1,256 Intake Visit Reasons: (OV) PO Panniculectomy 04/16/23 [employer] Required: No Allergies shellfish derived Allergy (Intermediate, Verified 05/07/23 10:03) Difficulty Breathing Medication List - Last Reconciled 05/27/23 by ELFEGO Perez diclofenac sodium 1% (Arthritis Pain (diclofenac)) 2 grams topical QID docusate sodium (Colace) 100 mg PO .daily 90 days lidocaine 4% (Aspercreme (lidocaine)) 1 patch topical DAILY PRN lidocaine 4% 1 appl topical TID PRN oxycodone-acetaminophen 5-325 mg 1 tab PO BID pregabalin (Lyrica) 50 mg PO TID HPI HPI Comments History of Present Illness Details Patient is very pleasant 38-year-old female who returns to the office today in follow-up. She is status post panniculectomy performed on 04/16/2023. She just completed her antibiotics. She is continuing to follow the meal plan. She offers no significant complaints except some tenderness in the suprapubic region over the last couple of days although improving. She has not having any trouble moving her bowels. [facility] Medical History Postgastrectomy malabsorption Sciatica Hemorrhoids with complication Liver fibrosis Pre-op evaluation Anemia Hematuria History of COVID-19 Palpitations Back pain Migraines Neuropathy Sleep apnea with use of continuous positive airway pressure (CPAP) Obesity Surgical History (Updated 05/07/23 @ 10:07 by Niesha Fontanez CMA) S/P panniculectomy H/O hemorrhoidectomy (02/07/23) S/P laparoscopic sleeve gastrectomy Hx of tubal ligation Hx of cystoscopy Hx of foot surgery Hx of foot surgery Hx of section Family History Mother Heart disease Hypertension Father Cancer Brother No problems noted. Brother No problems noted. Sister No problems noted. Son Asthma Son ADHD Daughter Migraine Paternal Aunt Breast cancer Maternal Grandfather Prostate cancer Paternal Aunt Ovarian cancer Family/Other Ovarian cancer Social History Are you a primary adult care manager to a significant other at home: No Do you presently have visiting nurse or other home services: No Alcohol intake: never Patient Tobacco Use Status: Never used Tobacco service: No Current occupational status: unemployed Physical Exam Vital Signs: Last Vital Signs Temp 97.6 F 05/27/23 14:42 Pulse 86 05/27/23 14:42 BP 107/58 L 05/27/23 14:42 Pulse Ox 97 05/27/23 14:42 Oxygen Delivery Method Room Air 05/27/23 14:42 BMI result Body Mass Index 27.0 GI Other: Incision is healing perfectly. Umbilicus is viable. No tenderness, fluctuance or mass appreciated in the suprapubic area. Assessment & Plan Assessment & Plan (1) S/P panniculectomy: Code(s): Z98.890 - Other specified postprocedural states Plan: Continue abdominal binder. Continue meal plan per Dr. Young. She will continue to avoid exercise, although she may walk around the house. We will have her return to the office in 2 weeks' time. Coding Level of Care Code Global (65745) Diagnoses S/P panniculectomy Z98.890
== END 2023-05-27 15:17 | disposition home or self-care (01) ==
PROVIDERS: PCP Nurse Practitioner Primary Care; Visit Provider Physician Assistant Surgical
DX: Z98.890 Other specified postprocedural states (principal)
CPT/HCPCS: 99024

== ENCOUNTER → 2023-05-27 13:57 | Outpatient (BNVA) | payer MEDICAID, SELFPAY | PROVIDERS: PCP Nurse Practitioner Primary Care; Visit Provider Physician Assistant Surgical | DX: Z98.890 Other specified postprocedural states (principal) | CPT/HCPCS: 99212 ==

== ENCOUNTER 2023-06-11 13:24 | Outpatient (AMB) | payer MEDICAID, SELFPAY ==
--- NOTE | 2023-06-11 13:47 | MHC.OFFVISWM ---
Intake VS Expanded 06/11/23 13:48 BP 113/71 Blood Pressure Location Rt brachial Blood Pressure Position Sitting Pulse 88 Pulse Source Pulse Oximeter Temp 97.3 F Temperature Source Temporal Artery Scan Pulse Oximetry 100 Oxygen Delivery Method Room Air Intake Visit Reasons: (OV) PO Panniculectomy 04/16/23 Allergies shellfish derived Allergy (Intermediate, Verified 06/11/23 13:47) Difficulty Breathing HPI HPI Comments History of Present Illness Details Patient is a pleasant 38-year-old female who returns to the office today in follow-up. She is status post panniculectomy on 04/16/2023. She has not yet returned to work. She has been rather stressed recently and did not follow the diet specifically. She was supposed to be doing a Premier protein shake x2, ready to drink, and a meal. She has no complaints of pain. She has not returned to exercise. Previously using treadmill and stationary bike [facility] Medical History Postgastrectomy malabsorption Sciatica Hemorrhoids with complication Liver fibrosis Pre-op evaluation Anemia Hematuria History of COVID-19 Palpitations Back pain Migraines Neuropathy Sleep apnea with use of continuous positive airway pressure (CPAP) Obesity Surgical History S/P panniculectomy H/O hemorrhoidectomy (02/07/23) S/P laparoscopic sleeve gastrectomy Hx of tubal ligation Hx of cystoscopy Hx of foot surgery Hx of foot surgery Hx of section Family History Mother Heart disease Hypertension Father Cancer Brother No problems noted. Brother No problems noted. Sister No problems noted. Son Asthma Son ADHD Daughter Migraine Paternal Aunt Breast cancer Maternal Grandfather Prostate cancer Paternal Aunt Ovarian cancer Family/Other Ovarian cancer Social History Are you a primary medicare contact specialist to a significant other at home: No Do you presently have visiting nurse or other home services: No Alcohol intake: never Patient Tobacco Use Status: Never used Tobacco service: No Current occupational status: unemployed Physical Exam Vital Signs: Last Vital Signs Temp 97.3 F 06/11/23 13:48 Pulse 88 06/11/23 13:48 BP 113/71 06/11/23 13:48 Pulse Ox 100 06/11/23 13:48 Oxygen Delivery Method Room Air 06/11/23 13:48 Skin Other: Panniculectomy incision has healed nicely. Umbilicus has healed nicely. Assessment & Plan Assessment & Plan (1) S/P panniculectomy: Code(s): Z98.890 - Other specified postprocedural states Plan: Patient was given a note to return to work on 06/16/2023, light duty, no heavy lifting greater than 20 lb, until seen in follow-up for her three-month postop appointment. Recommend Premier protein ready to drink, 1 shake daily, 1 zone perfect bar, 1 meal with 6 forks of protein and for forks of vegetables. May return to exercise utilizing stationary bike and treadmill with the abdominal binder. No abdominal work or core work until 3 months postop. Return to office 1 month Coding Level of Care Code Global (08231) Diagnoses S/P panniculectomy Z98.890
[2023-06-11 13:48] VITALS: BP 113/71; PULSE 88; TEMP 36.3; O2SAT 100
== END 2023-06-11 14:12 | disposition home or self-care (01) ==
PROVIDERS: PCP Nurse Practitioner Primary Care; Visit Provider Physician Assistant Surgical
DX: Z98.890 Other specified postprocedural states (principal)
CPT/HCPCS: 99024

== ENCOUNTER → 2023-06-11 13:24 | Outpatient (BNVA) | payer MEDICAID, SELFPAY | PROVIDERS: PCP Nurse Practitioner Primary Care; Visit Provider Physician Assistant Surgical | DX: Z98.890 Other specified postprocedural states (principal) | CPT/HCPCS: 99212 ==

== ENCOUNTER 2023-07-18 08:52 | Outpatient (AMB) | payer MEDICAID, SELFPAY ==
--- NOTE | 2023-07-18 08:55 | MHC.OFFVISWM ---
VS Expanded 07/18/23 09:01 BP 120/59 L Blood Pressure Location Rt brachial Blood Pressure Position Sitting Pulse 79 Pulse Source Pulse Oximeter Temp 97.6 F Temperature Source Tympanic Pulse Oximetry 97 Oxygen Delivery Method Room Air Height 4 ft 11 in Weight 136 lb 9.6 oz BMI 27.6 Body Fat % 35.5 Body Fat Mass 48.6 Fat Free Mass 88.0 Visceral Fat Rating 6.0 Body Water % 46.2 Body Water Mass 63.0 Muscle Mass/Score 83.6 Basal Metabolic Rate/Score 1,237 Intake Visit Reasons: (OV) PO Panniculectomy 04/16/23 City Letter Carrier Required: No Allergies shellfish derived Allergy (Intermediate, Verified 06/11/23 13:47) Difficulty Breathing Medication List - Last Reconciled 07/18/23 by ELFEGO Perez docusate sodium (Colace) 100 mg PO .daily 90 days oxycodone-acetaminophen 5-325 mg 1 tab PO BID HPI Comments Details: Patient is a pleasant 38-year-old female who returns to the office today. She is status post sleeve gastrectomy on 05/31/2021 and panniculectomy on 04/16/2023. Weight today is 136.6 lb with a BMI of 27.6. under a lot of stress Taking a women MVI one daily Meal plan: unity balance in water (no protein) 4 oz protein and 4 oz veg pure protein or kellog bar drinking 48 oz water Exercise walking 30-60 min treadmill, 3 days per week, Any post op complications: none LEONARD: resolved DM: never HTN: never Hyperlipidemia: never GERD:?0-5 scale ??0 = no symptoms ??1 = symptoms noticeable but not bothersome 2 =symptoms bothersome but not daily ? 3 = symptoms bothersome and daily 4 = symptoms affect daily activities 5 = symptoms are incapacitating, unable to do daily activities ? How bad is the heartburn: 0 ? Heartburn while lying down: 0 ? Heartburn when standing up: 0 ? Heartburn after meals: 0 ? Does heartburn change your diet: 0 ? Does heartburn wake you up from sleep: 0 ? Do you have difficulty swallowin ? Do you have pain with swallowin ? If you take medicine for your reflux, does this affect your daily life: 0 Satisfaction with present condition - satisfied or not satisfied: satisfied except for recent weight gain PFSH Medical History Postgastrectomy malabsorption Sciatica Hemorrhoids with complication Liver fibrosis Pre-op evaluation Anemia Hematuria History of COVID-19 Palpitations Back pain Migraines Neuropathy Sleep apnea with use of continuous positive airway pressure (CPAP) Obesity Surgical History S/P panniculectomy H/O hemorrhoidectomy (02/07/23) S/P laparoscopic sleeve gastrectomy Hx of tubal ligation Hx of cystoscopy Hx of foot surgery Hx of foot surgery Hx of section Family History Mother Heart disease Hypertension Father Cancer Brother No problems noted. Brother No problems noted. Sister No problems noted. Son Asthma Son ADHD Daughter Migraine Paternal Aunt Breast cancer Maternal Grandfather Prostate cancer Paternal Aunt Ovarian cancer Family/Other Ovarian cancer Social History Are you a primary acute care certified nursing assistant to a significant other at home: No Do you presently have visiting nurse or other home services: No Alcohol intake: never Patient Tobacco Use Status: Never used Tobacco service: No Current occupational status: unemployed Physical Exam Vital Signs: Last Vital Signs Temp 97.6 F 07/18/23 09:01 Pulse 79 07/18/23 09:01 BP 120/59 L 07/18/23 09:01 Pulse Ox 97 07/18/23 09:01 Oxygen Delivery Method Room Air 07/18/23 09:01 BMI result Body Mass Index 27.6 Const General: cooperative and no acute distress Orientation/consciousness: patient oriented x3 Resp Effort & Inspection: normal respiratory effort Auscultation: clear to auscultation bilaterally Cardio Rate: regular rate Rhythm: regular rhythm GI Inspection: Yes normal to inspection and Yes incision (well healed) Palpation (GI): Soft to palpation and no masses Neuro General: patient oriented x3 Assessment & Plan Assessment & Plan (1) S/P laparoscopic sleeve gastrectomy: Comment: 05/31/2021 Code(s): Z98.84 - Bariatric surgery status Category: Surgical Plan: Labs from March revealed low vitamin-D. Prescription sent. Change meal plan: Premier protein ready to drink in the morning, meal mid day with 7 forks of protein and 7 forks of vegetables. Half pure protein bar or full zone perfect bar. Increase water to 64 oz per day. Increase exercise to 5 days per week, tracking calories with a goal of 400 calories per day. Return to clinic 2 months. Given cell phone number to increase communication with weekly weights Medications: New cholecalciferol (vitamin D3) 125 mcg PO DAILY 90 days 90 caps 2RF
[2023-07-18 09:01] VITALS: BP 120/59; PULSE 79; TEMP 36.4; O2SAT 97; BMI 27.6
== END 2023-07-18 09:34 | disposition home or self-care (01) ==
PROVIDERS: PCP Nurse Practitioner Primary Care; Visit Provider Physician Assistant Surgical
DX: E66.3 Overweight (principal); Z68.27 Body mass index [BMI] 27.0-27.9, adult; Z98.84 Bariatric surgery status
CPT/HCPCS: 99214

== ENCOUNTER → 2023-07-18 08:52 | Outpatient (BNVA) | payer MEDICAID, SELFPAY | PROVIDERS: PCP Nurse Practitioner Primary Care; Visit Provider Physician Assistant Surgical | DX: E66.9 Obesity, unspecified (principal); Z68.27 Body mass index [BMI] 27.0-27.9, adult; Z90.3 Acquired absence of stomach [part of] | CPT/HCPCS: 99212 ==

== ENCOUNTER 2023-09-23 09:02 | Outpatient (REF) | payer MEDICAID, SELFPAY ==
--- NOTE | 2023-09-23 09:00 | EMG_ITS ---
Right tibial and peroneal motor studies were performed. Right sural, superficial peroneal, and median and lateral mixed plantar studies were performed. Tibial H-reflex was obtained, and needle examination was performed. 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 Otherwise, no significant abnormality noted. MD AMY Reinoso/IRINA / [id number]
== END 2023-09-23 09:03 | disposition home or self-care (01) ==
LOC: HO.NEURO 09:02
PROVIDERS: PCP Nurse Practitioner Primary Care; Visit Provider Student in an Organized Health Care Education/Training Program
DX: G62.9 Polyneuropathy, unspecified (principal)
CPT/HCPCS: 95886; 95910

== ENCOUNTER 2023-10-27 10:08 | Outpatient (AMB) | payer MEDICAID, SELFPAY ==
--- NOTE | 2023-10-27 10:05 | MHC.OFFVISWM ---
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 She is status post sleeve gastrectomy on 05/31/2021 and panniculectomy on 04/16/2023. Weight today is 142.4 lb with a BMI of 28.7 Taking a women MVI one daily. She has not been following the meal plan. 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 She also has started exercise, although this is only over the last 1 week. She states that she is scheduled for a vacation to go to [place] for approximately 18 days but she is motivated to continue her meal plan and exercise plan while there. We will have her return to the office to ensure that she is back on track once she returns. Meal plan: Premier protein ready to drink in the morning, meal mid day with 7 forks of protein and 7 forks of vegetables. Half pure protein bar or full zone perfect bar. drinking 48 oz water Exercise started last week pilates, 1 hr 6 days per week 45 min stationary bike, [facility] Medical History Postgastrectomy malabsorption Sciatica Hemorrhoids with complication Liver fibrosis Pre-op evaluation Anemia Hematuria History of COVID-19 Palpitations Back pain Migraines Neuropathy Sleep apnea with use of continuous positive airway pressure (CPAP) Obesity Surgical History S/P panniculectomy H/O hemorrhoidectomy (02/07/23) S/P laparoscopic sleeve gastrectomy Hx of tubal ligation Hx of cystoscopy Hx of foot surgery Hx of foot surgery Hx of section Family History Mother Heart disease Hypertension Father Cancer Brother No problems noted. Brother No problems noted. Sister No problems noted. Son Asthma Son ADHD Daughter Migraine Paternal Aunt Breast cancer Maternal Grandfather Prostate cancer Paternal Aunt Ovarian cancer Family/Other Ovarian cancer Social History Are you a primary critical care physician to a significant other at home: No Do you presently have visiting nurse or other home services: No Alcohol intake: never Patient Tobacco Use Status: Never used Tobacco service: No Current occupational status: unemployed Telehealth Telehealth Telehealth Platform: Telephone Location of provider rendering services: practice address Location of patient: address on file Patient Identification confirmed using: Name, : Yes Telehealth method: voice only Patient verbally consented to treatment: Yes Patient verbally consented to billing insurance company: Yes Patient informed of any privacy concerns related to visit: Yes Minutes spent on Phone/Video with Pt.: 10 Assessment & Plan Assessment & Plan (1) Overweight (BMI 25.0-29.9): Code(s): E66.3 - Overweight Category: Medical Plan: Encouraged to resume meal plan as listed above, continue exercise consistently. We will arrange for follow-up appointment upon her return from vacation. Encouraged to text with any questions or concerns
[2023-10-27 10:06] VITALS: BMI 28.7
== END 2023-10-27 10:17 | disposition home or self-care (01) ==
LOC: HO.HBS 10:08
PROVIDERS: PCP Nurse Practitioner Primary Care; Visit Provider Physician Assistant Surgical
DX: E66.3 Overweight (principal)
CPT/HCPCS: 99213

== ENCOUNTER → 2023-10-27 10:08 | Outpatient (BNVA) | payer MEDICAID, SELFPAY | PROVIDERS: PCP Nurse Practitioner Primary Care; Visit Provider Physician Assistant Surgical ==

== ENCOUNTER 2023-12-15 15:19 | Outpatient (REF) | payer MEDICAID, SELFPAY ==
[2023-12-15 16:01] LABS: MANUAL DIFF FLAG NO
[2023-12-15 16:14] LABS: Basophils Percent Auto 0.7 % (0-2); Eosinophils Percent Auto 0.4 % (0-4); Hematocrit 36.3 % (37.0-47.0); Hemoglobin 11.9 g/dl (12.0-16.0); Imm Gran Abs Auto 0.01 X10*3/uL (0.00-0.03); Imm Gran Pct Auto 0.2 % (0.0-0.4); Lymphocytes Absolute Auto 2.2 X10*3/uL (1.2-4.9); Lymphocytes Percent Auto 39.7 % (20-40); Mean Corpuscular HGB Conc 32.8 g/dl (31.0-35.0); Mean Corpuscular Hemoglobin 30.7 pg (27.0-33.0); Mean Corpuscular Volume 93.8 fL (80.0-98.0); Mean Platelet Volume 11.1 fL (9.4-12.3); Monocytes Absolute Auto 0.4 X10*3/uL (0.1-1.2); Neutrophils Absolute Auto 2.8 x10*3/uL (2.0-8.3); Platelet Count 248 X10*3/uL (160-400); Red Blood Count 3.87 X10*6/uL (4.20-5.50); Red Cell Distribution Width 11.9 % (11.0-16.0); White Blood Count 5.5 X10*3/uL (4.8-10.8)
[2023-12-15 18:30] LABS: Alanine Aminotransferase 24 U/L (0-31); Albumin Level 4.8 g/dL (3.5-5.0); Alkaline Phosphatase 55 U/L (39-117); Anion Gap 13 (12-20); Aspartate Amino Transferase 27 U/L (5-31); Bilirubin Total 0.4 mg/dL (0.0-1.0); Blood Urea Nitrogen 15 mg/dL (9-16); Calcium 10.1 mg/dL (8.4-10.2); Carbon Dioxide 27 mmol/L (22-29); Chloride 102 mmol/L (96-108); Estimated Glomerular Filt Rate > 60; Glucose Random 74 mg/dL (60-115); Potassium 3.5 mmol/L (3.3-5.1); Sodium 138 mmol/L (135-145); Total Protein 7.6 g/dL (6.5-8.0)
== END 2023-12-15 15:20 | disposition home or self-care (01) ==
LOC: HO.HHCL 15:19
PROVIDERS: Visit Provider Nurse Practitioner Primary Care
DX: G43.909 Migraine, unspecified, not intractable, without status migrainosus (principal)
CPT/HCPCS: 36415; 80053; 85025

== ENCOUNTER 2024-01-27 11:38 | Outpatient (REF) | payer MEDICAID, SELFPAY ==
[2024-01-30 17:09] LABS: TS Negative Control Passed; TS Panel A 0; TS Panel B 0; TS Positive Control Passed; TSpotTB Negative (Negative)
== END 2024-01-27 11:39 | disposition home or self-care (01) ==
LOC: HO.HHCL 11:38
PROVIDERS: Visit Provider Nurse Practitioner Primary Care
DX: Z11.1 Encounter for screening for respiratory tuberculosis (principal)
CPT/HCPCS: 36415; 86481

== ENCOUNTER 2024-03-01 14:00 | Outpatient (AMB) | payer MEDICAID, SELFPAY ==
--- NOTE | 2024-03-01 13:57 | A.OFFVIS_ITS ---
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 She is status post sleeve gastrectomy on 05/31/2021 and panniculectomy on 04/16/2023. Weight today is 145 lb with a BMI of 29.3 Taking a women MVI one daily. She has not been following the meal plan. 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 She also has started exercise, although this is only over the last 1 week. She states that she is scheduled for a vacation to go to [place] for approximately 18 days but she is motivated to continue her meal plan and exercise plan while there. We will have her return to the office to ensure that she is back on track once she returns. She had been stress eating and divorce and now she is out of the stress. She had been eating a lot of candy. And not exercising She uses shake, and 1 meal with candy in between Meal plan: Premier protein ready to drink in the morning, meal mid day with 7 forks of protein and 7 forks of vegetables. Half pure protein bar or full zone perfect bar. drinking 48 oz water Exercise started last week pilates, 1 hr 6 days per week 45 min stationary bike, [facility] Medical History Postgastrectomy malabsorption Sciatica Hemorrhoids with complication Liver fibrosis Pre-op evaluation Anemia Hematuria History of COVID-19 Palpitations Back pain Migraines Neuropathy Sleep apnea with use of continuous positive airway pressure (CPAP) Obesity Surgical History S/P panniculectomy H/O hemorrhoidectomy (02/07/23) S/P laparoscopic sleeve gastrectomy Hx of tubal ligation Hx of cystoscopy Hx of foot surgery Hx of foot surgery Hx of section Family History Mother Heart disease Hypertension Father Cancer Brother No problems noted. Brother No problems noted. Sister No problems noted. Son Asthma Son ADHD Daughter Migraine Paternal Aunt Breast cancer Maternal Grandfather Prostate cancer Paternal Aunt Ovarian cancer Family/Other Ovarian cancer Social History Are you a primary managed care manager to a significant other at home: No Do you presently have visiting nurse or other home services: No Alcohol intake: never Patient Tobacco Use Status: Never used Tobacco service: No Current occupational status: unemployed Telehealth Telehealth Telehealth Platform: Telephone Location of provider rendering services: practice address Location of patient: address on file Patient Identification confirmed using: Name, : Yes Telehealth method: voice only Patient verbally consented to treatment: Yes Patient verbally consented to billing insurance company: Yes Patient informed of any privacy concerns related to visit: Yes Minutes spent on Phone/Video with Pt.: 12 Assessment & Plan Assessment & Plan (1) Overweight (BMI 25.0-29.9): Code(s): E66.3 - Overweight Category: Medical Plan: Discussed the importance of following her meal plan. Premier protein ready to drink shake, 6 oz mixed with 6 oz of unsweetened almond milk Atkins bar Meal with 6 forks of protein and 6 forks of vegetables May have an apple or half cup fresh berries if she wishes Encouraged to use her stationary bike at home for 275 calories daily and a 30 minute Pilates exercise video which she enjoys doing. We will have her return to the office in approximately 1 month. Encouraged to text weekly with weights and with any questions or concerns.
[2024-03-01 14:03] VITALS: BMI 29.3
== END 2024-03-01 14:12 | disposition home or self-care (01) ==
LOC: HO.HBS 14:10
PROVIDERS: PCP Nurse Practitioner Primary Care; Visit Provider Physician Assistant Surgical
DX: E66.3 Overweight (principal)
CPT/HCPCS: 99213

== ENCOUNTER 2024-08-24 10:01 | Outpatient (AMB) | payer MEDICAID, SELFPAY ==
--- NOTE | 2024-08-24 10:03 | MHC.OFFVISWM ---
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 She is status post sleeve gastrectomy on 05/31/2021 and panniculectomy on 04/16/2023. Weight today is 148.4 lb with a BMI of 30 Taking a women MVI one daily. She states that she had her gabapentin increased from 300 t.i.d. to 600 t.i.d. and with this she developed fatigue and significant weight gain. She was up to 160 lb. She stopped the medication approximately 3 weeks ago and is now down to 148 lb. She is no longer going to be take gabapentin. Meal plan: Premier protein ready to drink shake, 6 oz mixed with 6 oz of unsweetened almond milk Atkins bar Meal with 6 forks of protein and 6 forks of vegetables May have an apple or half cup fresh berries if she wishes drinking 48 oz water Exercise pilates, 1 hr 5 days per week 45 min stationary bike, 4 days per week [facility] TO [facility] Medical History Postgastrectomy malabsorption Sciatica Hemorrhoids with complication Liver fibrosis Pre-op evaluation Anemia Hematuria History of COVID-19 Palpitations Back pain Migraines Neuropathy Sleep apnea with use of continuous positive airway pressure (CPAP) Obesity Surgical History S/P panniculectomy H/O hemorrhoidectomy (02/07/23) S/P laparoscopic sleeve gastrectomy Hx of tubal ligation Hx of cystoscopy Hx of foot surgery Hx of foot surgery Hx of section Family History Mother Heart disease Hypertension Father Cancer Brother No problems noted. Brother No problems noted. Sister No problems noted. Son Asthma Son ADHD Daughter Migraine Paternal Aunt Breast cancer Maternal Grandfather Prostate cancer Paternal Aunt Ovarian cancer Family/Other Ovarian cancer Social History Are you a primary child care sitter to a significant other at home: No Do you presently have visiting nurse or other home services: No Alcohol intake: never Patient Tobacco Use Status: Never used Tobacco service: No Current occupational status: unemployed Physical Exam Const General: healthy appearing and no acute distress Resp Effort & Inspection: normal respiratory effort Auscultation: clear to auscultation bilaterally Cardio Rate: regular rate Rhythm: regular rhythm GI Auscultation: normal bowel sounds Extrem General: Yes normal to inspection Assessment & Plan Assessment & Plan (1) S/P laparoscopic sleeve gastrectomy: Comment: 05/31/2021 Code(s): Z98.84 - Bariatric surgery status Category: Surgical Plan: Patient was able to identify gabapentin as cause of her weight gain. Since stopping this medication, she has lost approximately 12 lb in 3 weeks. She will continue to follow the meal plan. With regards to her exercise plan, we discussed the goal of burning 400 calories per session on the stationary bike, continuing Pilates. She will also alert the prescribing practitioner should she experience any adverse reaction to the Zepbound which is being prescribed from her from an outside physician. We will have her return to the office in a proximally 2 months.
[2024-08-24 10:14] VITALS: BP 112/71; TEMP 36.3; O2SAT 100
--- OUTSIDE RECORDS SUMMARY | 2024-08-24 10:42 | XMS_ITS | Data Portability ---
Author Organization RAFAELA Jose Kenyon Akad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 Plan of Treatment Reminders Order Date Submit Date Provider Last Modified By Organization Details Last Modified Time Details Appointments None recorded. Lab None recorded. Referral None recorded. Procedures None recorded. Surgeries None recorded. Imaging MRI, lumbar spine, w/o contrast - low back pain with RLE radiculopat hy - needs OPEN MRI 2024 025 [facility] ([facility] [address] [facility], [place], [address], 5 11:34:19 XR, lumbar spine, 2 view - 2v L-spine. room 313 2024 025 [facility], [address], [place], [address], 5 11:34:19 Medication Orders gabapentin 300 mg capsule [address] [id number], [address] [place], [address], 5 16:10:19 Patient TargetsNo targets recorded. Patient InstructionsNo instructions recorded. Reason for Referral None Reported. Results Created Date Observation Date Name Description Value Unit Range Abnormal Flag Note LastModifiedBy Organization Detail LastModifiedTime 06/29/19 25 06/28/2024 XR, lumba r spine , 2 view http:/ [email or web address] ?Encry pted=s hAaTro YD8dLq bEUv6g %2BXZw aYqtaq 0bqfl% 2Fg9IQ a4ajBk vP9nXo QUaueC m3YtLR FvZlgJ JJ8mAn HZtai3 5h6221 AC0KqY nSCUKu gKiQtr MwF INTERFACE [facility] [address], [place], [address], 06/28/2024 13:34:01 06/29/19 25 06/28/2024 XR, lumba r spine , 2 view http:/ [email or web address] ?Encry pted=s hAaTro YD8dLq bEUv6g %2BXZw aYqtaq 0bqfl% 2Fg9IQ a4ajBk vP9nXo QUaueC m3YtLR FvZlgJ JJ8mAn HZtai3 2t5919 AC0KqY nSCUKu gKiQtr MwF INTERFACE [facility] [address], [place], [address], 06/28/2024 13:34:03 07/04/19 25 07/01/2024 MRI, lumba r spine , w/o contr ast [facility] Access ion Number : [id number] [facility] t Name: [facility] l Record Number : [id number] Date of : 1985 Date of Exam: 2024 Referr ing Physic kary: Faisal medina, Florencia [facility] [address] [facility], [facility] [address] Exam: MR Lumbar Spine (C-) CPT 51996 Room Descri ption: [facility] Espr 1.5 MRI of the lumbar spine withou t contra st. HISTOR Y: Low back pain. Bilate ral leg pain. COMPAR BETH: None. FINDIN GS: This study assume s 5 nonrib -beari ng lumbar -type verteb ral bodies . The conus medull max appear s normal in calibe r and signal intens ities. It termin ates at L1 level. The alignm ent is normal . No verteb ral body fractu re is seen. The bone marrow signal s are within normal limits . The interv ertebr al disc spaces are preser shannan. No epidur al hemato ma or ligame ntous injury . The parasp inal muscle s are within normal limits . There is no disc hernia tion, stenos is or neural forame n narrow ing throug hout the lumbar spine. IMPRES FROILAN: Normal MRI of the lumbar spine. Electr onical ly Signed By: King Queen MD [address] [facility] ([facility]) [address], [place], [address], 07/06/2024 11:18:54 Result Notes None recorded. Problems Name Problem SNOMED Code Status Onset Date Resolution Date Notes Provider Name and Address Organization Details Recorded Time No complaints 095886240 Active Status : 'A'; Not Available [facility] 4 09:12:02 Low back pain 252856954 Active 2024 Florencia Lynn, HEATING AND VENTILATING WORKER [address], [place], [address] , [facility] - [facility] 5 11:20:04 Problem Notes None recorded. Medical Equipment None Reported. Allergies Allergen ID Allergen Name Allergen Category Reaction Reaction Severity Criticality Documentation Date Start Date Code Code System Note Provider Name and Address Organization Details Recorded Time 76421 Shellfish (substanc e) food,medi cation Not available Not available Not available 06/02/20232017 27901 9006 SNOMED Not Available [facility] 4 13:27:30 Medications Name Sig Start Date Stop Date Status Note LastModified by Organization Details LastModified Time doxycycline hyclate 100 mg capsule TAKE 1 CAPSULE BY MOUTH TWICE A DAY FOR 7 DAYS active Not Available Not Available No t Available valacyclovi r 1 gram tablet TAKE 1 TABLET BY MOUTH EVERY 12 HOURS FOR 10 DAYS active Not Available Not Available No t Available sumatriptan 100 mg tablet TAKE 1 TABLET BY MOUTH 1 TIME IF NEEDED FOR MIGRAINE. DO NOT EXCEED 2 DOSES IN 24 HOURS. active Not Available Not Available No t Available hydroquinon e 4 % topical cream APPLY TO AFFECTED AREA TWICE A DAY active Not Available Not Available No t Available acetaminoph en 500 mg tablet TAKE 1 OR 2 TABLET BY ORAL ROUTE EVERY 8 HOURS NEEDED, DO NOT EXCEED 6 TABLETS PER 24 HRS active Not Available Not Available No t Available ketorolac 10 mg tablet TAKE 1 TABLET 4 TIMES A DAY NEEDED FOR PAIN, MAX 40 MG/DAY AND 5 DAYS. RECEIVED 30MG IM IN THE ED active Not Available Not Available No t Available meloxicam 7.5 mg tablet TAKE 1 TABLET (7.5 MG) BY MOUTH ONCE PER DAY. active Not Available Not Available No t Available oxycodone-a cetaminophe n 5 mg-325 mg tablet TAKE 1 TABLET BY MOUTH EVERY 8 (EIGHT) HOURS IF NEEDED FOR SEVERE PAIN FOR UP TO 28 DAYS. active Not Available Not Available No t Available magnesium oxide 400 mg (241.3 mg magnesium) tablet TAKE 1 TABLET BY MOUTH EVERY DAY active Not Available Not Available No t Available triamcinolo ne acetonide 0.1 % topical ointment APPLY TO AFFECTED AREA TWICE A DAY active Not Available Not Available No t Available clotrimazol e-betametha sone 1 %-0.05 % topical cream APPLY TO AFFECTED AREA TWICE A DAY FOR 7 DAYS active Not Available Not Available No t Available prednisone 50 mg tablet TAKE 1 TABLET BY MOUTH EVERY DAY FOR 5 DAYS active Not Available Not Available No t Available lidocaine 5 % topical patch APPLY 1 PATCH DAILY, CAN WEAR UP TO 12 HOURS active Not Available Not Available No t Available gabapentin 300 mg capsule TAKE 1 CAPSULE BY MOUTH IN THE MORNING, 1 CAPSULE IN THE AFTERNOON , AND 2 CAPSULES AT BEDTIME X1 WEEK. IF INSUFFICI ENT PAIN RELIEF, INCREASE TO 1 CAPSULE IN THE MORNING, 2 IN THE AFTERNOON , AND 2 AT BEDTIME active Not Available Not Available No t Available hydrocortis one 2.5 % topical ointment APPLY TO AFFECTED AREA TWICE A DAY FOR 14 DAYS active Not Available Not Available No t Available cholecalcif maykel (vitamin D3) 125 mcg (5,000 unit) capsule TAKE 1 CAPSULE BY MOUTH EVERY DAY active Not Available Not Available No t Available phentermine 37.5 mg capsule TAKE 1 CAPSULE ONCE DAILY WITH BFAST OR LUNCH active Not Available Not Available No t Available diclofenac 1 % topical gel APPLY UP TO 4 TIMES A DAY TO AFFECTED JOINT(S) FOR PAIN/SWEL LING active Not Available Not Available No t Available oxycodone HCl-oxycodo ne-ASA oxyCODONE HCl 5MG Tablet 06/28 completed Statu s: 'Curr ent'; Not Available Not Available Not Available Vitals Date Recorded Body height Body mass index (BMI) Body weight Provider Name and Address Organization Details Last Updated DateTime 06/28/2024 149.86 cm 30.7 kg/m2 26759.04 g Claudette Jordan [place] - [facility] 06/28/2024 13:24:00 Social History None recorded. Functional Status None recorded. Mental Status None recorded. Family History Nothing Reported. Medical History Condition Response Circulation Problems Y Nerve Disorders Y Anxiety/Depression Y Headaches Y Sleep Apnea Y Gynecological HistoryNo gynecological history recorded. Obstetrics History GPAL:G 0 P 0 0 0 0 Past Encounters Encounter ID Performer Location Encounter Start Date Encounter Closed Date Diagnosis/Indication Diagnosis SNOMED-CT Code Diagnosis ICD10 Code Diagnosis Note [id number] [facility] [address] [place] [address] 06/28/2024 13:10:31 07/13/2024 11:34:18 Chronic low back pain 093479872 M54.50 G89.29 Lumbar radiculopathy 128 053154 M54.16 Health Concerns Section Related Observation LastModified by Organization Detai ls LastModified Time None Recorded Concern Status LastModified by Organization Details LastModified Time None Recorded Advance Directives Directive None Recorded Payers Encounter Date Sequence Insurance Name Policy Number Policy Hammond Covered Member ID Hammond Member ID Guarantor Name 06/28/2024 1 [place]: [facility] Allison Freedman [id number] Allison Bagley Notes Date Note Type Note Provider Name and Address Organization Details Recorded Time 06/28/2024 text/html I am seeing the patient under the general supervision of Dr. Aly who was available but who did not see the patient. HPI: 39-year-old woman presents for evaluation chronic low back pain. Right leg sciatica versus radiculopathy. Pain is in her low back right buttock radiates down to the plantar foot. Pain/numbness/tingli ng. She has been following with pain management at [facility]. In January 2024 she had injection which greatly improved her pain. She then had nerve ablation in January which unfortunately greatly increased her pain. She reports constant pain in all positions. She also had right piriformis injection last month with [facility], no improvement.Constant pain now requiring oxycodone prescribed by her PCP. Also takes Tylenol, gabapentin, lidocaine patches, heat, salt water baths, physical therapy. 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 No bowel or bladder incontinence or saddle anesthesia.Last seen here for this 05/08/[address] Phillips. Per his note, EMG and lumbar spine MRI were unremarkable from lumbar standpoint, and did not indicate any aggressive/surgical care. RADICULITIS: RLE L5-S1 vs sciatica PFMSH and ROS have been reviewed, updated, and it is located in the patient's chart. 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 Able to balance on heels and tip toes.Inspection:--- Erythema - none--- Edema - none--- Deformity - none--- Posture - neutralTenderness:-- - Spinous processes - none--- Paraspinal musculature - noneROM:--- Lumbar spine: 75% normal--- Full ROM to hips, knees, anklesLower extremity strength:--- LLE 5/5--- RLE 5/5Neurologic:--- 2+ DTRs--- Positive sensation to light moving touchSpecial tests:--- Negative SLR bilaterally--- Negative ankle clonus bilaterally IMAGING/DIAGNOSTICS: X rays ordered, obtained, and independently reviewed at [facility] today. 2 views lumbar spine reveals diffuse spondylosis and facet arthropathic. Significant disc space narrowing L5-S1.- EMG 10/11/2020 [facility] reports There is nerve conduction study evidence of a moderate right sural axonal sensory neuropathy, likely secondary to the patient's reported history of right ankle trauma at age 12. No EMG evidence of right L2-S1 radiculopathies. IMPRESSION: chronic back pain, RLE radiculopathy L5-S1 vs sciatica PLAN: Findings discussed with the patient today.- Order lumbar spine MRI to further evaluate continued low back pain right leg radiculopathy. Failed medications, physical therapy, injection therapy. needs open MRI ? Will increase gabapentin. Oxycodone per PCP. ? Next steps depend on MRI results. FOLLOW UP: MRI review Speech recognition publications manager software was used to create portions of this document. An attempt at proofreading has been made to minimize errors. Please call for corrections. time spent 45 mins. Comprehensive evaluation, NEOS and [facility] chart review, new XR. Florencia Lynn, HEATING AND VENTILATING WORKER [address] [facility] [address], [place], [address], [place] - [facility] 06/28/2024 19:14:44 OBGyn Episode No OBEpisode recorded.
== END 2024-08-24 10:30 | disposition home or self-care (01) ==
LOC: HO.HBS 10:02
PROVIDERS: PCP Nurse Practitioner Primary Care; Visit Provider Physician Assistant Surgical
DX: E66.9 Obesity, unspecified (principal); Z68.30 Body mass index [BMI] 30.0-30.9, adult; Z90.3 Acquired absence of stomach [part of]; Z98.84 Bariatric surgery status
CPT/HCPCS: 99213

== ENCOUNTER → 2024-08-24 10:01 | Outpatient (BNVA) | payer MEDICAID, SELFPAY | PROVIDERS: PCP Nurse Practitioner Primary Care; Visit Provider Physician Assistant Surgical | DX: Z98.84 Bariatric surgery status (principal) | CPT/HCPCS: 99212 ==

== ENCOUNTER 2024-09-20 14:00 | Outpatient (REF) | payer MEDICAID, SELFPAY ==
--- OUTSIDE RECORDS SUMMARY | 2024-09-20 15:34 | XMS_ITS | Data Portability ---
Author Organization [facility], [facility] Address [address] [place] [address] Care Team Providers Care Clothes Presser Name Role Phone FLORIDALMA GALVAN Primary Care Provider [phone] Assessment No assessment recorded. Plan of Treatment Reminders Order Date Submit Date Provider Last Modified By Organization Details Last Modified Time Details Appointments None recorded. Lab None recorded. Referral None recorded. Procedures None recorded. Surgeries None recorded. Imaging MRI, lumbar spine, w/o contrast - low back pain with RLE radiculopat hy - needs OPEN MRI 2024 025 [facility] ([facility] [address] [facility], [place], [address], 5 11:34:19 XR, lumbar spine, 2 view - 2v L-spine. room 313 2024 025 [facility], [address], [place], [address], 5 11:34:19 Medication Orders gabapentin 300 mg capsule [address] [id number], [address] [place], [address], 5 16:10:19 Patient TargetsNo targets recorded. Patient InstructionsNo instructions recorded. Reason for Referral None Reported. Results Created Date Observation Date Name Description Value Unit Range Abnormal Flag Note LastModifiedBy Organization Detail LastModifiedTime 06/29/1906/28/2024 XR, lumba r spine , 2 view http:/ [email or web address] ?Encry pted=s hAaTro YD8dLq bEUv6g %2BXZw aYqtaq 0bqfl% 2Fg9IQ a4ajBk vP9nXo QUaueC m3YtLR FvZlgJ JJ8mAn HZtai3 6n9124 AC0KqY nSCUKu gKiQtr MwF INTERFACE [facility] [address], [place], [address], 06/28/2024 13:34:01 06/29/19 25 06/28/2024 XR, lumba r spine , 2 view http:/ [email or web address] ?Encry pted=s hAaTro YD8dLq bEUv6g %2BXZw aYqtaq 0bqfl% 2Fg9IQ a4ajBk vP9nXo QUaueC m3YtLR FvZlgJ JJ8mAn HZtai3 6n3046 AC0KqY nSCUKu gKiQtr MwF INTERFACE [facility] [address], [place], [address], 06/28/2024 13:34:03 07/04/19 25 07/01/2024 MRI, lumba r spine , w/o contr ast [facility] Access ion Number : [id number] Patien t Name: Clive Bagleya l Record Number : [id number] Date of : 1985 Date of Exam: 2024 Referr ing Physic kary: Faisal rn, Florencia [facility] [address] [facility] [address] Exam: MR Lumbar Spine (C-) CPT 93423 Room Descri ption: [facility] 1.5 MRI of the lumbar spine [...] onical ly Signed By: King Queen MD [address] [facility] ([facility]) [address] [facility] [address], [place], [address], 07/06/2024 11:18:54 Result Notes Documentation Provider Name and Address Organization Details Recorded Time Xr, Lumbar Spine, 2 View : [email or web address] Encrypted=xmPrKitYM8yXaoI Uv6g%3PWCyyYiqwp5zdxb%2Fg 7BCj3nsEigF1fAlGZpgqTv6Ok EKWqEohQKE0wRxCEqlv49z536 5YI7QmHvRXEYapXjKtiDzQ Not Available [facility] 06/28/2024 13:34:02 Xr, Lumbar Spine, 2 View : [email or web address] Encrypted=clAxPdvER6yZpnW Uv6g%0CRObxFkiso9vyll%2Fg 6RFm1umOuzG5jZoMDkzyFi5An RTCrClsZHI6mFuKKami31f094 9LC4VcCeDVJCxxKsPznAgH Not Available [facility] 06/28/2024 13:34:04 Mri, Lumbar Spine, W/o Contrast : [facility] Accession Number: [id number] Patient Name: Allison Bagley Date of : 1985 Date of Exam: 07-01-2024 Referring Physician: Florencia Lynn [facility] [address] [place], [place] [address] Exam: MR Lumbar Spine (C-) CPT 84814 Room Description: [facility] 1.5 MRI of the lumbar spine without contrast. HISTORY: Low back pain. Bilateral leg pain. COMPARISON: None. FINDINGS: This study assumes 5 nonrib-bearing lumbar-type vertebral bodies. The conus medullaris appears normal in caliber and signal intensities. It terminates at L1 level. The alignment is normal. No vertebral body fracture is seen. The bone marrow signals are within normal limits. The intervertebral disc spaces are preserved. No epidural hematoma or ligamentous injury. The paraspinal muscles are within normal limits. There is no disc herniation, stenosis or neural foramen narrowing throughout the lumbar spine. IMPRESSION: Normal MRI of the lumbar spine. Electronically Signed By: King Lynn CNP [address], [place], [address], [facility] 07/06/2024 11:18:54 Problems Name Problem SNOMED Code Status Onset Date Resolution Date Notes Provider Name and Address Organization Details Recorded Time No complaints 991988539 Active Status : 'A'; Not Available [facility] 4 09:12:02 Low back pain 506326507 Active 2024 Florencia Lynn CNP [address], [place], [address] , [facility] 5 11:20:04 Problem Notes None recorded. Medical Equipment None Reported. Allergies Allergen ID Allergen Name Allergen Category Reaction Reaction Severity Criticality Documentation Date Start Date Code Code System Note Provider Name and Address Organization Details Recorded Time 03305 Shellfish (substanc e) food,medi cation Not available Not available Not available 06/02/20232017 30912 9006 SNOMED Not Available [facility] 4 13:27:30 Medications Name Sig Start [...] Updated DateTime 06/28/2024 149.86 cm 30.7 kg/m2 95668.04 g Claudette Jordan [place] - [facility] 06/28/2024 13:24:00 Social History None recorded. Functional [...] SNOMED-CT Code Diagnosis ICD10 Code Diagnosis Note [id number] Florencia Lynn, HÉCTOR PANDA - [facility] [address] [facility] [address] 06/28/2024 13:10:31 07/13/2024 11:34:18 Chronic low back pain 907183258 M54.50 G89.29 Lumbar radiculopathy 128 205123 M54.16 Health Concerns Section Related Observation LastModified by Organization Detai ls LastModified Time None Recorded Concern Status LastModified by Organization Details LastModified Time None Recorded Advance Directives Directive None Recorded Payers Insurance Date Sequence Insurance Name Policy Number Policy Hammond Covered Member ID Hammnod Member ID Guarantor Name 06/28/2024 1 [place] - [facility] (MEDICAID) Allison Freedman [id number] Allison Bagley 07/13/2024 1 [place] [facility] Allison Freedman [id number] Allison Bagley Notes Date Note Type Note [...] has been following with pain management at [facility]. In January 2024 she had injection which greatly improved her pain. She then had nerve ablation in January which unfortunately greatly increased her pain. She reports constant pain in all positions. She also had right piriformis injection last month with [facility], no improvement.Constant pain now requiring oxycodone prescribed by her PCP. Also takes Tylenol, gabapentin, lidocaine patches, heat, salt water baths, physical therapy. 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 2 views lumbar spine reveals diffuse spondylosis and facet arthropathic. Significant disc space narrowing L5-S1.- EMG 10/11/2020 [facility] reports There is nerve conduction study evidence [...] physical therapy, injection therapy. needs open MRI Will increase gabapentin. Oxycodone per PCP. Next steps depend on MRI results. FOLLOW UP: MRI review Speech recognition make up artist software was used to create portions of this document. An attempt at proofreading has been made to minimize errors. Please call for corrections. time spent 45 mins. Comprehensive evaluation, NEOS and CIS chart review, new XR. Florencia Lynn, GARNETT MACHINE OPERATOR [address] [facility] [address], [place], [address], [place] - [facility] 06/28/2024 19:14:44 OBGyn Episode No OBEpisode recorded.
[2024-09-20 16:01] LABS: MANUAL DIFF FLAG NO
[2024-09-20 16:11] LABS: Basophils Absolute Auto 0.1 X10*3/uL (0.0-0.2); Basophils Percent Auto 0.7 % (0-2); Eosinophils Absolute Auto 0.1 X10*3/uL (0.0-0.4); Eosinophils Percent Auto 1.1 % (0-4); Hematocrit 39.6 % (37.0-47.0); Imm Gran Abs Auto 0.02 X10*3/uL (0.00-0.03); Imm Gran Pct Auto 0.3 % (0.0-0.4); Lymphocytes Absolute Auto 2.7 X10*3/uL (1.2-4.9); Lymphocytes Percent Auto 37.5 % (20-40); Mean Corpuscular HGB Conc 32.8 g/dl (31.0-35.0); Mean Corpuscular Hemoglobin 29.9 pg (27.0-33.0); Mean Platelet Volume 11.9 fL (9.4-12.3); Monocytes Absolute Auto 0.6 X10*3/uL (0.1-1.2); Monocytes Percent Auto 8.1 % (2-11); Neutrophils Absolute Auto 3.7 x10*3/uL (2.0-8.3); Neutrophils Percent Auto 52.3 % (45-73); Platelet Count 236 X10*3/uL (160-400); Red Blood Count 4.35 X10*6/uL (4.20-5.50); Red Cell Distribution Width 13.1 % (11.0-16.0); White Blood Count 7.1 X10*3/uL (4.8-10.8)
[2024-09-20 16:39] LABS: Iron 70 mcg/dL (30-160); Percent Iron Saturation 24 % (15-50); Total Iron Binding Capacity 290 mcg/dL (228-428); Unsaturated Iron Binding 220 ug/dL
== END 2024-09-20 14:01 | disposition home or self-care (01) ==
LOC: HO.HHCL 14:00
PROVIDERS: PCP Nurse Practitioner Primary Care; Visit Provider Nurse Practitioner Primary Care
DX: G25.81 Restless legs syndrome (principal)
CPT/HCPCS: 36415; 83540; 85025

== ENCOUNTER 2024-10-18 09:26 | Outpatient (AMB) | payer MEDICAID, SELFPAY ==
--- NOTE | 2024-10-18 09:28 | MHC.OFFVISWM ---
VS Expanded 10/18/24 09:39 BP 114/75 Blood Pressure Location Rt brachial Blood Pressure Position Sitting Pulse 95 Pulse Source Pulse Oximeter Temp 96.8 F Temperature Source Temporal Artery Scan Pulse Oximetry 96 Oxygen Delivery Method Room Air Height 4 ft 11 in Weight 127 lb 9.6 oz BMI 25.8 Body Fat % 38.4 Body Fat Mass 49.0 Fat Free Mass 78.4 Visceral Fat Rating 6.0 Body Water % 44.1 Body Water Mass 56.2 Muscle Mass/Score 74.6 Basal Metabolic Rate/Score 1,130 Intake Visit Reasons: (OV) PO LSG 05/31/21/Panniculectomy 04/16/23 Hostess Party Sales Representative Required: No Allergies shellfish derived Allergy (Intermediate, Verified 10/18/24 09:33) Difficulty Breathing Medication List - Last Reconciled 10/18/24 by ELFEGO Perez cholecalciferol (vitamin D3) 125 mcg PO DAILY 90 days oxycodone-acetaminophen 5-325 mg 1 tab PO BID HPI Comments Details: Patient is a pleasant 39-year-old female who returns to the office today. She is status post sleeve gastrectomy on 05/31/2021 and panniculectomy on 04/16/2023. Weight today is 127.6 lb with a BMI of 25.8 Taking a women MVI one daily. She states that she is still taking zepbound 7.5 mg weekly. This has been prescribed by her primary care physician. She states that since starting this, she is not eating very much protein and has not been doing the protein shakes. She is eating salads and not more than 4 oz of chicken per day. She states that she wants to achieve a weight of 120 lb and then she is going to stop the medication. She states that she is going to [place] for the next 2 weeks. Discussed the importance of appropriate meal planning and protein intake per day. Discussed the risk of muscle wasting given the low protein intake. She states that she will resume her shakes and bars. She was given information regarding the right BMI so that she can create her meal plan in accordance with her schedule. Previously recommended Meal plan: Premier protein ready to drink shake, 6 oz mixed with 6 oz of unsweetened almond milk Atkins bar Meal with 6 forks of protein and 6 forks of vegetables May have an apple or half cup fresh berries if she wishes drinking 48 oz water Exercise none in the last 6 weeks Previously: pilates, 1 hr 5 days per week 45 min stationary bike, 4 days per week [facility] Medical History Postgastrectomy malabsorption Sciatica Hemorrhoids with complication Liver fibrosis Pre-op evaluation Anemia Hematuria History of COVID-19 Palpitations Back pain Migraines Neuropathy Sleep apnea with use of continuous positive airway pressure (CPAP) Obesity Surgical History S/P panniculectomy H/O hemorrhoidectomy (02/07/23) S/P laparoscopic sleeve gastrectomy Hx of tubal ligation Hx of cystoscopy Hx of foot surgery Hx of foot surgery Hx of section Family History Mother Heart disease Hypertension Father Cancer Brother No problems noted. Brother No problems noted. Sister No problems noted. Son Asthma Son ADHD Daughter Migraine Paternal Aunt Breast cancer Maternal Grandfather Prostate cancer Paternal Aunt Ovarian cancer Family/Other Ovarian cancer Social History Are you a primary professional healthcare representative to a significant other at home: No Do you presently have visiting nurse or other home services: No Alcohol intake: never Patient Tobacco Use Status: Never used Tobacco service: No Current occupational status: unemployed Physical Exam Const General: healthy appearing and no acute distress Resp Effort & Inspection: normal respiratory effort Auscultation: clear to auscultation bilaterally Cardio Rate: regular rate Rhythm: regular rhythm GI Auscultation: normal bowel sounds Extrem General: Yes normal to inspection Assessment & Plan Assessment & Plan (1) S/P laparoscopic sleeve gastrectomy: Comment: 05/31/2021 Code(s): Z98.84 - Bariatric surgery status Category: Surgical Plan: Patient given information regarding the right BMI zen. She has not been taking in adequate protein since starting Zepbound. She states that her goal is to achieve a weight of 120 lb and then she will stop this. She would discuss this with her prescribing provider, her primary care physician. Discussed the risk of poor protein intake as it relates to muscle wasting. She states that she will start the plan soon. She states that she is going to [place] for 2 weeks and she will start the plan when she returns. Return to clinic for her 4 year sleeve follow-up appointment in May with the understanding that she will call the office sooner should she have any questions or concerns.
[2024-10-18 09:39] VITALS: BP 114/75; PULSE 95; TEMP 36; O2SAT 96; BMI 25.8
--- OUTSIDE RECORDS SUMMARY | 2024-10-18 09:54 | XMS_ITS | Clinical Summary ---
Author Organization [facility] Address [address] [place] [address] Phone Care Team Providers Care Iron Handler Name Role Phone Rina Crawford MD Primary Care Provider [phone] Allergies Active Allergy Reactions Criticality Noted Date Comments Shellfish Derived 05/15/2022 Medications cholecalciferol (VITAMIN D-3) 50 mcg (2,000 unit) capsule Take 1 tablet by mouth daily. 9 Active L. acidophilus/Bif id. animalis (DAILY PROBIOTIC ORAL) 8 Active acetaminophen (TYLENOL) 500 mg tablet TAKE 1 OR 2 TABLET BY ORAL ROUTE EVERY 8 HOURS NEEDED, DO NOT EXCEED 6 TABLETS PER 24 HRS Active diclofenac (VOLTAREN) 1 % topical gel APPLY UP TO 4 TIMES A DAY TO AFFECTED JOINT(S) FOR PAIN/SWELLING Active gabapentin (NEURONTIN) 300 mg capsule 1 capsule (300 mg total). Active hydroquinone (BRIDGETTE) 4 % cream Apply 1 Application topically 2 (two) times a day. APPLY TO AFFECTED AREA 4 Active lidocaine (LIDODERM) 5 % patch APPLY 1 PATCH DAILY, CAN WEAR UP TO 12 HOURS 5 Active oxyCODONE-aceta minophen (PERCOCET) 5-325 mg per tablet TAKE 1 TABLET BY MOUTH EVERY 8 (EIGHT) HOURS IF NEEDED FOR SEVERE PAIN FOR UP TO 28 DAYS. Active phentermine 37.5 mg capsule TAKE 1 CAPSULE ONCE DAILY WITH BFAST OR LUNCH 4 Active SUMAtriptan (IMITREX) 100 mg tablet TAKE 1 TABLET BY MOUTH 1 TIME IF NEEDED FOR MIGRAINE. DO NOT EXCEED 2 DOSES IN 24 HOURS. 5 Active tirzepatide, weight loss, (Zepbound) 2.5 mg/0.5 mL injection Inject 0.5 mL (2.5 mg total) under the skin. 5 Active triamcinolone (KENALOG) 0.1 % ointment Apply 1 Application topically 2 (two) times a day. 5 Active valACYclovir (VALTREX) 1 gram tablet Take 1 tablet (1,000 mg total) by mouth every 12 (twelve) hours. for 10 days 4 Active clotrimazole-be tamethasone (LOTRISONE) 1-0.05 % cream APPLY TO AFFECTED AREA TWICE A DAY FOR 7 DAYS 30 g 5 Active Active Problems Problem Noted Date Diagnosed Date Screening for genetic disease carrier status Overview (06/25/2024): 2022 [employer] screen for BRCA is Negative. Anemia 03/25/2024 Asthma 03/25/2024 Surgical History Surgery Date Site/Laterality Comments SECTION PROCEDURE: IL DELIVERY ONLY OTHER SURGICAL HISTORY PROCEDURE: [place] LIG/TRNSXJ FLP TUBE ABDL/VAG APPR UNI/BI OTHER SURGICAL HISTORY 07/04/2016 PROCEDURE: IL DILATION & CURETTAGE DX&/THER NONOBSTETRIC; COMMENT: Performed by Dr. Aguilera OTHER SURGICAL HISTORY 05/29/2021 PROCEDURE: HISTORICAL UNSPECIFIED SURGERY; COMMENT: gastric bypass BELT ABDOMINOPLASTY 03/31/2023 - 03/30/2024 Medical History Medical History Date Comments Anemia DX:Anemia Abnormal cytological finding in specimen from cervix DX:Abnormal cytological find ing in specimen from cervix Asthma DX:Asthma Family History Medical History Relation Name Comments Ovarian cancer Aunt Coronary artery disease Father Hypertension Father Melanoma Father Diabetes Maternal Grandfather Prostate cancer Maternal Grandfather Diabetes Maternal Grandmother Coronary artery disease Mother Hypertension Mother Breast cancer Other Aunt on dad side Cervical cancer Neg Hx Colon cancer Neg Hx Relation Name Status Comments Aunt Brother 1 Alive Brother 2 Alive Daughter Alive Father Alive Maternal Grandfather Maternal Grandmother Mother Alive Other Aunt on dad side Alive Paternal Grandfather Alive Paternal Grandmother Alive Sister Alive Son 1 Alive Son 2 Alive Social History Tobacco Use Types Packs/Day Years Used Date Smoking Tobacco: Never Smokeless Tobacco: Never Tobacco Cessation:Counseling Given: Not Answered Alcohol Use Standard Drinks/Week Comments No 0 (1 standard drink = 0.6 oz pur e alcohol) Comments Unknown Sex and Gender Information Value Date Recorded Sex Assigned at Not on file Legal Sex Female 1:10 PM EST Gender Identity Not on file Sexual Orientation Not on file Occupation Industry Job Start Date Job End Date [employer] Not on file Not on file Not on file Obstetrics History Para Term AB IAB SAB Ectopic Multiple Livin g Live Births 6 3 3 3 3 3 Date Outcome GA Total Labor Labor/2nd/3rd Weight Sex Type Anes PTL Keshia A1 A5 Name Clin AB AB AB 2006 Term M CS-Un spec Living 2007 Term M CS-Un spec Living 2009 Term F CS-Un spec Living Last Filed Vital Signs Vital Sign Reading Time Taken Comments Blood Pressure 112/76 06/25/2024 9:35 AM EDT Pulse 102 06/25/2024 9:35 AM EDT Temperature - - Respiratory Rate - - Oxygen Saturation - - Inhaled Oxygen Concentration - - Weight 69.4 kg (152 lb 14.4 oz) 06/25/2024 9:35 AM EDT Height 149.9 cm (4' 11 ) 06/25/2024 9:35 AM EDT Body Mass Index 30.88 06/25/2024 9:35 AM EDT Plan of Treatment Health Maintenance Due Date Last Done Comments Pneumococcal Vaccine: Pediatrics (0 to 5 Years) and At-Risk Patients (6 to 49 Years) (1 of 2 - PCV) 2006 Social Influencers of Health Screening 06/23/2022 Influenza Vaccine (#1) 2024 , 12/12/2022, 01/03/2022, Additional history exists Cervical Cancer Screening: HPV 06/01/2027 05/31/2022 Cholesterol Screening (Lipid Panel) 04/08/2028 04/08/2023 DTaP,Tdap,and Td Vaccines (3 - Td or Tdap) 10/04/2029 10/05/2019, 04/10/2016 Hepatitis B Vaccines Completed 06/08/2020, 04/06/2020, 02/17/2020 HIV Screening Completed 05/31/2022, 02/08/2020 Hepatitis C Screening Completed 05/31/2022 HPV Vaccines Completed 04/12/2024, 11/29, 08/19/2022 COVID-19 Vaccine Completed 04/16/2024, , 05/21/2022, Additional history exists Depression Screening Completed 06/24/2024 HIB Vaccines Aged Out No longer eligi ble based on patient's age to complete this topic Hepatitis A Vaccines Aged Out No long er eligible based on patient's age to complete this topic IPV Vaccines Aged Out No longer eligi ble based on patient's age to complete this topic MMR Vaccines Aged Out No longer eligi ble based on patient's age to complete this topic Meningococcal ACWY Vaccine Aged Out N o longer eligible based on patient's age to complete this topic Meningococcal B Vaccine Aged Out No l onger eligible based on patient's age to complete this topic RSV Immunization Patients Under 20 months Aged Out No longer eligible based on patient's age to complete this topic Varicella Vaccines Aged Out No longer eligible based on patient's age to complete this topic Procedures Procedure Name Priority Date/Time Associated Diagnosis Comments HPV Routine 05/31/2022 HEPATITIS C SCREENING Routine 05/31/2022 HIV SCREENING Routine 05/31/2022 from Last 3 Months or Most Recently Relevant to Health Maintenance Results * Cervical Cancer Screening: HPV (05/31/2022) [facility] Cervical Cancer Screening: HPV negative, abstracted [facility] Provider HEALTH MAINTENANCE Final Result * HIV Screening (05/31/2022) [facility] HIV Screening abstracted [facility] Provider MD HEALTH MAINTENANCE Final Result * Hepatitis C Screening (05/31/2022) [facility] Hepatitis C Screening abstracted [facility] Provider HEALTH MAINTENANCE Final Result from Last 3 Months or Most Recently Relevant to Health Maintenance Insurance [address] [place] [address] [place] Care Teams Iron Handler Relationship Specialty Start Date End Date Rina Crawford MD [address] [place], [place] PCP - General 05/28/18
--- OUTSIDE RECORDS SUMMARY | 2024-10-18 09:54 | XMS_ITS | Encounter Summary ---
Author Organization [employer] Address [address] [facility] [address] [place] [address] Care Team Providers Care Eye Surgeon Name Role Phone Sandra Alcantar Primary Care Provider [phone] Pinky Perez RN Unavailable [phone] Reason for Visit * Reason Onset Date Comments Med Refill 02/14/2023 Encounter Details Date Type Department Care Team ([facility] Contact Info) Description 02/14/2023 Telephone [facility] MEDICINE [address], [place] [phone] Sandra Alcantar ANP [address] [place], [place] [phone] Med Refill Social History Tobacco Use Types Packs/Day Years Used Date Smoking Tobacco: Never Passive Smoke Exposure: Never Smokeless Tobacco: Never Alcohol Use Standard Drinks/Week Comments Never 0 (1 standard drink = 0.6 oz pur e alcohol) Depression Answer Date Recorded Patient Health Questionnaire-9 Score 0 08/07/2022 Housing Stability Answer Date Recorded What is your housing situation today? I have tyrel roche 01/15/[address] you li ve. Do you have problems with any of the following? None of the above 01/15/2023 Food Insecurity Answer Date Recorded Within the past 12 months, y ou worried that your food would run out before you got money to buy more: Never True 01/15/2023 Within the past 12 months,th e food you bought just didn't last and you didn't have enough money to get more: Never True Transportation Answer Date Recorded In the past 12 months, has l ack of transportation kept you from medical appts, meetings, work or from getting things needed for daily living? No 01/15/2023 Utilities Answer Date Recorded In the past 12 months, has t he electric, gas, oil or water company threatened to shut off services in your home? No 01/15/2023 Depression Answer Date Recorded Patient Health Questionnaire-2 Score 0 08/07/2022 Comments Unknown Sex and Gender Information Value Date Recorded Sex Assigned at Female 01/28/2022 10:30 AM EDT Legal Sex Female 10:30 AM EDT Gender Identity Female 01/28/2022 10:30 AM EDT Sexual Orientation Straight 01/28/2022 10 :30 AM EDT documented as of this encounter Miscellaneous Notes * Telephone Encounter - Eliel Hunter - 02/14/2023 2:09 PM EST Tc from pt requesting med refill for oxyCODONE-acetaminophen (Percocet) 5-325 MG tablet. documented in this encounter Plan of Treatment Upcoming Encounters Date Type Department Care Team (Late st Contact Info) Description 12/14/2024 11:00 AM EDT Clinical Support [facility] MED & PEDS [address] [place] [address] Maddison Corley, RN [address] [place] [address] 12/21/2024 11:30 AM EDT Office Visit [facility] MEDICINE [address] [place] [address] Sandra Alcantar ANP [address] [place] [address] documented as of this encounter Visit Diagnoses Not on filedocumented in this encounter Additional Health Concerns Assessment Noted Time PHQ-9 Depression Total Score: 0 08/08/19 23 10:21 AM EDT documented as of this encounter Care Teams Eye Surgeon Relationship Specialty Start Date End Date Sandra Alcantar ANP [address] [place] [address] PCP - General Family Medicine 12/27/21 Pinky Perez RN [address] [place] [address] [place] [address] Water Treatment Plant SupervisorResidence Manager 06/08/24 09/02/24 documented as of this encounter
--- OUTSIDE RECORDS SUMMARY | 2024-10-18 09:54 | XMS_ITS | Clinical Summary ---
Author Organization [facility] Address [address] [place] [address] Phone Care Team Providers Care Peoplesoft Taleo Manager Name Role Phone Sandra Alcantar Primary Care Provider [phone] Social History Tobacco Use Types Packs/Day Years Used Date Smoking Tobacco: Never Assessed Education Answer Date Recorded Are you interested in more education? Not on vilma e 07/27/2022 Are you concerned about learning? Not on file 07/27/2022 No 07/27/2022 No 07/27/2022 Digital Access Answer Date Recorded No 08/25/2022 No 08/25/2022 No 08/25/2022 Reliable internet access at home? Not on file 08/25/2022 Device with a working camera? Not on file Comments Unknown Sex and Gender Information Value Date Recorded Sex Assigned at Not on file Legal Sex Female 3:36 PM EST Gender Identity Not on file Sexual Orientation Not on file Plan of Treatment Health Maintenance Due Date Last Done Comments DEPRESSION SCREENING 1999 SMOKING Hx and SMOKELESS TOBACCO SCREENING 2000 HEPATITIS C SCREENING 2005 HIV ONE-TIME SCREENING (18-6 5 YEARS) 2005 PAP SMEAR 2008 COVID-19 VACCINE (2023-2 5 season) 2023 09/30/2020, 08/15/2020 Adult Td,Tdap Booster 10/04/2029 10/05/2019 , 04/10/2016 HEPATITIS A VACCINES Aged Out No long er eligible based on patient's age to complete this topic HIB VACCINES Aged Out No longer eligi ble based on patient's age to complete this topic MENINGOCOCCAL VACCINES (ACWY) Aged Out No longer eligible based on patient's age to complete this topic MENINGOCOCCAL VACCINES (B) Aged Out N o longer eligible based on patient's age to complete this topic PNEUMOCOCCAL VACCINES (0-49 years) Aged Out No longer eligible b ased on patient's age to complete this topic Medical Devices Not on file Insurance C3 ACO C3 ACO C3 ACO C3 ACO C3 ACO C3 ACO Care Teams Peoplesoft Taleo Manager Relationship Specialty Start Date End Date Sandra Alcantar ANP [address] [place] [address] PCP - General Family Medicine 03/01/22 Additional Source Comments The information contained in this document represents components of the legal health record. It is not the complete legal health record.[facility]
== END 2024-10-18 09:52 | disposition home or self-care (01) ==
LOC: HO.HBS 09:27
PROVIDERS: PCP Nurse Practitioner Primary Care; Visit Provider Physician Assistant Surgical
DX: E66.3 Overweight (principal); Z68.25 Body mass index [BMI] 25.0-25.9, adult; Z90.3 Acquired absence of stomach [part of]; Z98.84 Bariatric surgery status
CPT/HCPCS: 99213

== ENCOUNTER → 2024-10-18 09:26 | Outpatient (BNVA) | payer MEDICAID, SELFPAY | PROVIDERS: PCP Nurse Practitioner Primary Care; Visit Provider Physician Assistant Surgical | DX: Z98.84 Bariatric surgery status (principal) | CPT/HCPCS: 99212 ==

== ENCOUNTER 2025-03-22 09:15 | Outpatient (REF) | payer MEDICAID, SELFPAY ==
--- OUTSIDE RECORDS SUMMARY | 2025-03-22 09:56 | XMS_ITS | Encounter Summary ---
Author Organization [employer] Address [address] [facility] 7t [place] [address] Care Team Providers Care Field Placement Director Name Role Phone Sandra Alcantar Primary Care Provider [phone] iPnky Perez RN Unavailable [phone] Denisse Hernandez Unavailable Denisse Hernandez Unavailable Encounter Details Date Type Department Care Team (Late st Contact Info) Description 12/10/2022 Refill [facility] MEDICINE [address] [place], [place] [phone] Sandra Alcantar ANP [address] [place], [place] [phone] Chronic pain of right ankle Social History Tobacco Use Types Packs/Day Years Used Date Smoking Tobacco: Never Passive Smoke Exposure: Never Smokeless Tobacco: Never Alcohol Use Standard Drinks/Week Comments Never 0 (1 standard drink = 0.6 oz pur e alcohol) Depression Answer Date Recorded Patient Health Questionnaire-9 Score 0 08/07/2022 Depression Answer Date Recorded Patient Health Questionnaire-2 Score 0 08/07/2022 Comments Unknown Sex and Gender Information Value Date Recorded Sex Assigned at Female 01/28/2022 10:30 AM EDT Legal Sex Female 10:30 AM EDT Gender Identity Female 01/28/2022 10:30 AM EDT Sexual Orientation Straight 01/28/2022 10 :30 AM EDT documented as of this encounter Miscellaneous Notes * Telephone Encounter - Mylene Castillo RN - 12/19/2022 4:05 PM EDT Images from the original note were not included. Triage call regarding Pt request through Pt portal (see below). Pt last seen by another provider inOV 11/14/22. Pt has had hemorrhoids for many years and uses OTC cream from [email or web address] which has been usually effective. Pt is requesting a prescription for a new cream that may be more effective IE . preparation H. Pt denies rectal bleeding, has mild discomfort, denies constipation. Advised Pt wi th home care using sitz bath in the evenings, reviewed this information and Pt agreed to try this. Advised Pt will send request to PCP and nursing team, Pt agreed with this disposition and plan. Protocol Used: Rectal Symptoms (Adult) Protocol-Based Disposition: Home Care Positive Triage Question: * Mild rectal pain * All higher-acuity triage questions were negative Care Advice Discussed: * Reassurance and Education - Mild Rectal Pain or Irritation * Warm Saline SITZ Baths - For Rectal Symptoms * Warm Saline Sitz Bath - How to Make a SITZ Bath * Stool Softener (Colace) for Hard Bowel Movements * Stool Softener - Extra Notes and Warnings * Preventing Constipation * Expected Course * Reasons To Call Back - Severe rectal pain - Rectal pain not improved after 3 days - Rectal bleeding is more than minor (e.g., more than just blood on toilet paper or few drops) - Rectal bleeding is minor but is ongoing (e.g., occurs over 2 times) - You become worse Allison Drummond [facility] Clinical Support (supporting Sandra Alcantar, KALIN) 56 minutes ago (3:08 PM) Good afternoon doctor, this is embarrassing but it is what it is, I have had hemorrhoids for 2 days, so it was 3 now I have 2 left, this is not the first time this has happened to me, I have had thisproblem for years, it's just that the next day it is relieved But I've been like this for 2 days now, can you send me some cream for that? documented in this encounter Plan of Treatment Upcoming Encounters Date Type Department Care Team (Late st Contact Info) Description 03/22/2025 11:30 AM EST Office Visit [facility] MEDICINE [address] [place] [address] Sandra Alcantar ANP [address] [place] [address] Arrived 05/11/2025 9:00 AM EST Clinical Support [facility]C MED & PEDS 505 [place] [address] Maddison Corley RN 505 [place] [address] documented as of this encounter Visit Diagnoses Diagnosis Chronic pain of right ankle documented in this encounter Additional Health Concerns Assessment Noted Time PHQ-9 Depression Total Score: 0 08/08/19 23 10:21 AM EDT documented as of this encounter Care Teams Field Placement Director Relationship Specialty Start Date End Date Sandra Alcatnar ANP [address] [place] [address] PCP - General Family Medicine 12/27/21 Pinky Perez, BRANDIE [address] [place] [address] Fresh Foods Cake DecoratorCheck Processor 06/08/24 09/02/24 Denisse Hernandez 12/13/24 12/15/24 Denisse Hernandez 02/22/25 03/04/25 Kathie Holloway Fresh Foods Cake DecoratorCheck Processor 12/13/24 documented as of this encounter
--- OUTSIDE RECORDS SUMMARY | 2025-03-22 09:56 | XMS_ITS | Encounter Summary ---
Author Organization [employer] Address [address] [place] [address] 7 [place] [address] Care Team Providers Care Supply Planner Name Role Phone Sandra Alcantar Primary Care Provider [phone] Pinky Perez RN Unavailable [phone] Denisse Hernandez Unavailable Denisse Hernandez Unavailable Reason for Visit * Reason Onset Date Comments Med Refill 11/04/2022 Encounter Details Date Type Department Care Team ([facility] st Contact Info) Description 11/04/2022 Refill [facility] MEDICINE 230 [place], [place] [phone] Zena Diez MD [address] [place], [place] [phone] Chronic low back pain, unspecified back pain laterality, unspecified whether sciatica present Social History Tobacco Use Types Packs/Day Years [...] AM EDT documented as of this encounter Plan of Treatment Upcoming Encounters Date Type Department Care Team (Late st Contact Info) Description 03/22/2025 11:30 AM EST Office Visit [facility] MEDICINE [address] [place] [address] Sandra Alcantar ANP [address] [place] [address] Arrived 05/11/2025 9:00 AM EST Clinical Support [facility] CHC MED & PEDS [address] [place] [address] Maddison Corley, BRANDIE [address] [place] [address] documented as of this encounter Visit Diagnoses Diagnosis Chronic low back pain, unspecified back pain laterality, unspecified whether sciatica present documented in this encounter Additional Health Concerns Assessment Noted Time PHQ-9 Depression Total Score: 0 08/08/19 10:21 AM EDT documented as of this encounter Care Teams Supply Planner Relationship Specialty Start Date End Date Sandra Alcantar ANP [address] [place] [address] PCP - General Family Medicine 12/27/21 Pinky Perez RN [address] [place] [address] Cnc Maintenance MechanicRegistered Vascular Technologist (Rvt) 06/08/24 09/02/24 Denisse Hernandez 12/13/24 12/15/24 Denisse Hernandez 02/22/25 03/04/25 Kathie Holloway Cnc Maintenance MechanicRegistered Vascular Technologist (Rvt) 12/13/24 documented as of this encounter
--- OUTSIDE RECORDS SUMMARY | 2025-03-22 09:56 | XMS_ITS | Encounter Summary ---
Author Organization [employer] Address [address] [place] [address] 7 [place] [address] Care Team Providers Care Miller Helper Distillery Name Role Phone Sandra Alcantar Primary Care Provider [phone] Denisse Hernandez Unavailable Denisse Hernandez Unavailable Reason for Visit * Reason Comments Med Refill Encounter Details Date Type Department Care Team ([facility] st Contact Info) Description 10/01/2024 Refill [facility] MEDICINE [address] [place], [place] [phone] Sandra Alcantar ANP 230 [place], [place] [phone] Social History Tobacco Use Types Packs/Day Years Used Date Smoking Tobacco: Never Passive Smoke Exposure: Never Smokeless Tobacco: Never Alcohol Use Standard Drinks/Week Comments Never 0 (1 standard drink = 0.6 oz pur e alcohol) Depression Answer Date Recorded Patient Health Questionnaire-9 Score 0 09/20/2024 Patient Health Questionnaire-9 Score 0 09/20/2024 Last PHQ-9: Questionnaire Data Not on file 0 09/20/2024 Housing Stability Answer Date Recorded What is your housing situation today? I have tyrel roche 09/20/[address] you li ve. Do you have problems with any of the following? None of the above 09/20/2024 Food Insecurity Answer Date Recorded Within the past 12 months, y ou worried that your food would run out before you got money to buy more: Never True 2024 Within the past 12 months,th e food you bought just didn't last and you didn't have enough money to get more: Sometimes True 09/20/2024 Transportation Answer Date Recorded In the past 12 months, has l ack of transportation kept you from medical appts, meetings, work or from getting things needed for daily living? No 12/08/2023 Utilities Answer Date Recorded In the past 12 months, has t he electric, gas, oil or water company threatened to shut off services in your home? No 12/08/2023 Depression Answer Date Recorded Patient Health Questionnaire-2 Score 0 09/20/2024 Internet Access Answer Date Recorded Internet Access Q1 Yes 12/08/2023 Internet Access Q2 Not on file 12/08/2023 Comments No Sex and Gender Information Value Date Recorded Sex Assigned at Female 01/28/2022 10:30 AM EDT Legal Sex Female 10:30 AM EDT Gender Identity Female 01/28/2022 10:30 AM EDT Sexual Orientation Straight 01/28/2022 10 :30 AM EDT documented as of this encounter Plan of Treatment Upcoming Encounters Date Type Department Care Team (Late st Contact Info) Description 03/22/2025 11:30 AM EST Office Visit [facility] MEDICINE [address] [place] [address] Sandra Alcantar ANP 230 [place] [address] Arrived 05/11/2025 9:00 AM EST Clinical Support [facility] CH[facility] MED & PEDS 505 [place] [address] Maddison Corley, RN 505 [place] [address] documented as of this encounter Visit Diagnoses Not on filedocumented in this encounter Additional Health Concerns Assessment Noted Time PHQ-9 Depression Total Score: 0 09/21/19 1:27 PM EDT documented as of this encounter Care Teams Miller Helper Distillery Relationship Specialty Start Date End Date Sandra Alcantar ANP [address] [place] [address] PCP - General Family Medicine 12/27/21 Denisse Hernandez 12/13/24 12/15/24 Denisse Hernandez 02/22/25 03/04/25 Kathie Holloway Data Center TechnicianSupplier Quality Engineer 12/13/24 documented as of this encounter
--- OUTSIDE RECORDS SUMMARY | 2025-03-22 09:56 | XMS_ITS | Encounter Summary ---
Author Organization [employer] Address [address] [facility] 7t [place] [address] Care Team Providers Care Wholesale Diamond Broker Name Role Phone Sandra Alcantar Primary Care Provider [phone] Pinky Perez RN Unavailable [phone] Denisse Hernandez Unavailable Denisse Hernandez Unavailable Reason for Visit * Reason Onset Date Comments Med Refill 12/11/2022 Encounter Details Date Type Department Care Team ([facility] st Contact Info) Description 12/11/2022 Refill [facility] CHC MED & PEDS 505 [place], [place] [phone] Sandra Alcantar ANP 230 [place] [address] Chronic low back pain, unspecified back pain [...] Description 03/22/2025 11:30 AM EST Office Visit [facility] MEDICINE 230 [place] [address] Sandra Alcantar ANP [address] [place] [address] Arrived 05/11/2025 9:00 AM EST Clinical Support [facility] CHC MED & PEDS 505 [place] [address] Maddison Corley, BRANDIE 505 [place] [address] documented as of this encounter Visit Diagnoses Diagnosis Chronic low back pain, unspecified back pain laterality, unspecified whether sciatica present documented in this encounter Additional Health Concerns Assessment Noted Time PHQ-9 Depression Total Score: 0 08/08/19 10:21 AM EDT documented as of this encounter Care Teams Wholesale Diamond Broker Relationship Specialty Start Date End Date Sandra Alcantar ANP [address] [place] [address] PCP - General Family Medicine 12/27/21 Pinky Perez RN [address] [place] [address] Landscape Architect And PlannerMonitor Worker 06/08/24 09/02/24 Denisse Hernandez 12/13/24 12/15/24 Denisse Hernandez 02/22/25 03/04/25 Kathie Holloway Landscape Architect And PlannerMonitor Worker 12/13/24 documented as of this encounter
--- OUTSIDE RECORDS SUMMARY | 2025-03-22 09:56 | XMS_ITS | Encounter Summary ---
Author Organization [employer] Address [address] [facility] 7 [place] [address] Care Team Providers Care Pipe Setter Name Role Phone Sandra Alcantar Primary Care Provider [phone] Pinky Perez RN Unavailable [phone] Denisse Hernandez Unavailable Denisse Hernandez Unavailable Reason for Visit * Reason Onset Date Comments Med Refill 02/14/2023 Encounter Details Date Type Department Care Team ([facility] Contact Info) Description 02/14/2023 Telephone [facility] MEDICINE 230 [place], [place] [phone] Sandra Alcantar, ANP [address] [place], [place] [phone] Med Refill Social History Tobacco Use Types Packs/Day Years Used Date Smoking Tobacco: Never Passive Smoke Exposure: Never Smokeless Tobacco: Never Alcohol Use Standard Drinks/Week Comments Never 0 (1 standard drink = 0.6 oz pur e alcohol) Depression Answer Date Recorded Patient Health Questionnaire-9 Score 0 08/07/2022 Housing Stability Answer Date Recorded What is your housing situation today? I have tyrel sing 01/15/[address] you li [...] Description 03/22/2025 11:30 AM EST Office Visit [facility] MEDICINE [address] [place] [address] Sandra Alcantar ANP [address] [place] [address] Arrived 05/11/2025 9:00 AM EST Clinical Support [facility] CHC MED & PEDS 505 [place] [address] Maddison Corley, BRANDIE 505 [place] [address] documented as of this encounter Visit Diagnoses Not on filedocumented in this encounter Additional Health Concerns Assessment Noted Time PHQ-9 Depression Total Score: 0 08/08/19 10:21 AM EDT documented as of this encounter Care Teams Pipe Setter Relationship Specialty Start Date End Date Sandra Alcantar ANP [address] [place] [address] PCP - General Family Medicine 12/27/21 Pinky Perez RN [address] [place] [address] RAFAELA Farrell [address] Mail SorterSeafood Preparer 06/08/24 09/02/24 Denisse Hernandez 12/13/24 12/15/24 Denisse Hernandez 02/22/25 03/04/25 Kathie Holloway Mail SorterSeafood Preparer 12/13/24 documented as of this encounter
--- OUTSIDE RECORDS SUMMARY | 2025-03-22 09:56 | XMS_ITS | Encounter Summary ---
Author Organization [facility] Address [address] [place] [address] 7t [place] [address] Care Team Providers Care Formula Mixer Name Role Phone Sandra Alcantar Primary Care Provider [phone] Pinky Perez RN Unavailable [phone] Denisse Hernandez Unavailable Denisse Hernandez Unavailable Reason for Visit * Reason Comments Med Refill Encounter Details Date Type Department Care Team (Late st Contact Info) Description 11/07/2022 Refill [facility] MEDICINE 230 [place], [place] [phone] Name, MD Saulo [address] [place] [address] Low back pain radiating to right leg Social History Tobacco Use Types Packs/Day Years [...] Encounters Date Type Department Care Team (Late Contact Info) Description 03/22/2025 11:30 AM EST Office Visit [facility] MEDICINE [address] [place] [address] Sandra Alcantar ANP [address] [place] [address] Arrived 05/11/2025 9:00 AM EST Clinical Support [facility] CHC MED & PEDS 505 [place] [address] Maddison Corley RN 505 [place] [address] documented as of this encounter Visit Diagnoses Diagnosis Low back pain radiating to right leg Lumbago documented in this encounter Additional Health Concerns Assessment Noted Time PHQ-9 Depression Total Score: 0 08/08/19 23 10:21 AM EDT documented as of this encounter Care Teams Formula Mixer Relationship Specialty Start Date End Date Sandra Alcantar ANP [address] [place] [address] PCP - General Family Medicine 12/27/21 Pinky Perez RN [address] [place] [address] Beef BonerSpanish Interpreter 06/08/24 09/02/24 Denisse Hernandez 12/13/24 12/15/24 Denisse Hernandez 02/22/25 03/04/25 Kathie Holloway Beef BonerSpanish Interpreter 12/13/24 documented as of this encounter
--- OUTSIDE RECORDS SUMMARY | 2025-03-22 09:56 | XMS_ITS | Encounter Summary ---
Author Organization [employer] Address [address] [facility] 7 [place] [address] Care Team Providers Care Regional Refrigerated Cdl Truck Driver Name Role Phone Sandra Alcantar Primary Care Provider [phone] Pinky Perez RN Unavailable [phone] Denisse Hernandez Unavailable Denisse Hernandez Unavailable Reason for Visit * Reason Onset Date Comments Med Refill 02/12/2023 Encounter Details Date Type Department Care Team ([facility] Contact Info) Description 02/12/2023 Telephone [facility] MEDICINE 230 [place], [place] [phone] Sandra Alcantar, ANP 230 [place], [place] [phone] Med Refill Social History Tobacco Use Types [...] encounter Miscellaneous Notes * Telephone Encounter - Scar Avelar - 02/12/2023 10:26 AM EST Tc from patient requesting medication refill for oxyCODONE-acetaminophen (Percocet) 5-325 MG tabletpatient states had a procedure done on 02/07 and was a dosage change for pain. documented in this encounter Plan of Treatment Upcoming Encounters Date Type Department Care Team (Late st Contact Info) Description 03/22/2025 11:30 AM EST Office Visit [facility] MEDICINE [address] [place] [address] Sandra Alcantar ANP 230 [place] [address] Arrived 05/11/2025 9:00 AM EST Clinical Support [facility] CHC MED & PEDS [address] [place] [address] Maddison Corley, RN 505 [place] [address] documented as of this encounter Visit Diagnoses Not on filedocumented in this encounter Additional Health Concerns Assessment Noted Time PHQ-9 Depression Total Score: 0 08/08/19 10:21 AM EDT documented as of this encounter Care Teams Regional Refrigerated Cdl Truck Driver Relationship Specialty Start Date End Date Sandra Alcantar ANP 230 [place] [address] PCP - General Family Medicine 12/27/21 Pinky Perez, BRANDIE [address] [place] [address] Insurance Job TitlesWool Buyer 06/08/24 09/02/24 Denisse Hernandez 12/13/24 12/15/24 Denisse Hernandez 02/22/25 03/04/25 Kathie Holloway Insurance Job TitlesWool Buyer 12/13/24 documented as of this encounter
--- OUTSIDE RECORDS SUMMARY | 2025-03-22 09:56 | XMS_ITS | Encounter Summary ---
Author Organization [employer] Address [address] [place] [address] 7 [place] [address] Care Team Providers Care Hall Porter Name Role Phone Sandra Alcantar Primary Care Provider [phone] Pinky Perez RN Unavailable [phone] Denisse Hernandez Unavailable Denisse Hernandez Unavailable Reason for Visit * Reason Onset Date Comments Med Refill 12/09/2022 Encounter Details Date Type Department Care Team ([facility] Contact Info) Description 12/09/2022 Refill [facility] MEDICINE 230 [place], [place] [phone] Sandra Alcantar ANP [address] [place], [place] [phone] Chronic low back pain, unspecified back pain [...] Upcoming Encounters Date Type Department Care Team ([facility] Contact Info) Description 03/22/2025 11:30 AM EST Office Visit [facility] MEDICINE [address] [place] [address] Sandra Alcantar ANP [address] [place] [address] Arrived 05/11/2025 9:00 AM EST Clinical Support [facility] CH[facility] MED & PEDS [address] [place] [address] Maddison Corley, BRANDIE 505 [place] [address] documented as of this encounter Visit Diagnoses Diagnosis Chronic low back pain, unspecified back pain laterality, unspecified whether sciatica present documented in this encounter Additional Health Concerns Assessment Noted Time PHQ-9 Depression Total Score: 0 08/08/19 10:21 AM EDT documented as of this encounter Care Teams Hall Porter Relationship Specialty Start Date End Date Sandra Alcantar ANP [address] [place] [address] PCP - General Family Medicine 12/27/21 Pinky Perez RN [address] [place] [address] Vacuum TechnicianDirector Of Income Tax 06/08/24 09/02/24 Denisse Hernandez 12/13/24 12/15/24 Denisse Hernandez 02/22/25 03/04/25 Kathie Holloway Vacuum TechnicianDirector Of Income Tax 12/13/24 documented as of this encounter
--- OUTSIDE RECORDS SUMMARY | 2025-03-22 09:56 | XMS_ITS | Encounter Summary ---
Author Organization [employer] Address [address] [place] [address] 7 [place] [address] Care Team Providers Care Senior Writer Name Role Phone Sandra Alcantar Primary Care Provider [phone] Pinky Perez RN Unavailable [phone] Denisse Hernandez Unavailable Denisse Hernandez Unavailable Reason for Visit * Reason Onset Date Comments Med Refill 12/09/2022 Encounter Details Date Type Department Care Team ([facility] Contact Info) Description 12/09/2022 Refill [facility] MEDICINE 230 [place], [place] [phone] Sandra Alcantar ANP 230 [place], [place] [phone] Chronic low back pain, unspecified back pain [...] Upcoming Encounters Date Type Department Care Team ([facility] Contact Info) Description 03/22/2025 11:30 AM EST Office Visit [facility] MEDICINE [address] [place] [address] Sandra Alcantar ANP [address] [place] [address] Arrived 05/11/2025 9:00 AM EST Clinical Support [facility] MED [facility] PEDS [address] [place] [address] Maddison Corley, BRANDIE [address] [place] [address] documented as of this encounter Visit Diagnoses Diagnosis Chronic low back pain, unspecified back pain laterality, unspecified whether sciatica present documented in this encounter Additional Health Concerns Assessment Noted Time PHQ-9 Depression Total Score: 0 08/08/19 10:21 AM EDT documented as of this encounter Care Teams Senior Writer Relationship Specialty Start Date End Date Sandra Alcantar ANP [address] [place] [address] PCP - General Family Medicine 12/27/21 Pinky Perez RN [address] [place] [address] Brim And Crown PresserSenior Net Web Developer 06/08/24 09/02/24 Denisse Hernandez 12/13/24 12/15/24 Denisse Hernandez 02/22/25 03/04/25 Kathie Holloway Brim And Crown PresserSenior Net Web Developer 12/13/24 documented as of this encounter
--- OUTSIDE RECORDS SUMMARY | 2025-03-22 09:56 | XMS_ITS | Encounter Summary ---
Author Organization [employer] Address [address] [place] [address] 7 [place] [address] Care Team Providers Care Electric Melt Operator Name Role Phone Sandra Alcantar Primary Care Provider [phone] Pinky Perez RN Unavailable [phone] Denisse Hernandez Unavailable Denisse Hernandez Unavailable Reason for Visit * Reason Onset Date Comments Med Refill 10/07/2022 Encounter Details Date Type Department Care Team (Late st Contact Info) Description 10/07/2022 Refill [facility] MEDICINE [address] [place], [place] [phone] Zena Diez MD [address] [place], [place] [phone] Chronic low back pain, unspecified back pain [...] Orientation Straight 01/28/2022 10 :30 AM EDT COVID-19 Exposure Response Date Recorded In the last 10 days, have yo u been in contact with someone who was confirmed or suspected to have Coronavirus/COVID-19? No / Unsure 09/25/2022 11:33 AM EDT documented as of this encounter Miscellaneous Notes * Telephone Encounter - Avis Coleman - 10/09/2022 10:16 AM EDT Tc from patient requesting a call back, in regards to medication oxycodone 5 mg. States script was sent earlier to pharmacy due to her traveling but was unable to get script due to directions not matching with what patients was stating. Patient states she takes 11 pills a week due to her taking a double dose 4 days a week when she works. documented in this encounter Plan of Treatment Upcoming Encounters Date Type Department Care Team (Late st Contact Info) Description 03/22/2025 11:30 AM EST Office Visit [facility] MEDICINE [address] [place] [address] Sandra Alcantar ANP [address] [place] [address] Arrived 05/11/2025 9:00 AM EST Clinical Support [facility]S [address] [place] [address] Maddison Corley RN [address] [place] [address] documented as of this encounter Visit Diagnoses Diagnosis Chronic low back pain, unspecified back pain laterality, unspecified whether sciatica present documented in this encounter Additional Health Concerns Assessment Noted Time PHQ-9 Depression Total Score: 0 08/08/19 23 10:21 AM EDT documented as of this encounter Care Teams Electric Melt Operator Relationship Specialty Start Date End Date Sandra Alcantar ANP [address] [place] [address] PCP - General Family Medicine 12/27/21 Pinky Perez RN [address] [place] [address] Accountant HelperKennel Manager 06/08/24 09/02/24 Denisse Hernandez 12/13/24 12/15/24 Denisse Hernandez 02/22/25 03/04/25 Kathie Holloway Accountant HelperKennel Manager 12/13/24 documented as of this encounter
--- OUTSIDE RECORDS SUMMARY | 2025-03-22 09:56 | XMS_ITS | Encounter Summary ---
Author Organization [employer] Address [address] [place] [address] 7 [place] [address] Care Team Providers Care School Cafeteria Head Cook Name Role Phone Sandra Alcantar Primary Care Provider [phone] Pinky Perez RN Unavailable [phone] Denisse Hernandez Unavailable Denisse Hernandez Unavailable Reason for Visit * Reason Onset Date Comments Medication Question 11/11/2022 Encounter Details Date Type Department Care Team ([facility] st Contact Info) Description 11/11/2022 Telephone [facility] MEDICINE [address] [place], [place] [phone] Sandra Alcantar ANP [address] [place], [place] [phone] Medication Question Social History Tobacco Use Types Packs/Day Years [...] encounter Miscellaneous Notes * Telephone Encounter - Susi Pool RN - 11/11/2022 1:20 PM EDT [facility] * Telephone Encounter - Martin Martinez - 11/11/2022 1:10 PM EDT Tc from pt requesting for script of Oxycodone to be sent to [facility] Pharmacy due to [facility] all around not having medication. Please contact pt at [phone] documented in this encounter Plan of Treatment Upcoming Encounters Date Type Department Care Team (Late st Contact Info) Description 03/22/2025 11:30 AM EST Office Visit [facility] MEDICINE [address] [place] [address] Sandra Alcantar ANP [address] [place] [address] Arrived 05/11/2025 9:00 AM EST Clinical Support [facility] MED [facility] PEDS [address] [place] [address] Maddison Corley RN [address] [place] [address] documented as of this encounter Visit Diagnoses Not on filedocumented in this encounter Additional Health Concerns Assessment Noted Time PHQ-9 Depression Total Score: 0 08/08/19 10:21 AM EDT documented as of this encounter Care Teams School Cafeteria Head Cook Relationship Specialty Start Date End Date Sandra Alcantar ANP [address] [place] [address] PCP - General Family Medicine 12/27/21 Pinky Perez RN [address] [place] [address] Spotter DriverTurpentine Distiller 06/08/24 09/02/24 Denisse Hernandez 12/13/24 12/15/24 Denisse Hernandez 02/22/25 03/04/25 Kathie Holloway Spotter DriverTurpentine Distiller 12/13/24 documented as of this encounter
--- OUTSIDE RECORDS SUMMARY | 2025-03-22 09:57 | XMS_ITS | Encounter Summary ---
Author Organization [employer] Address [address] [facility] 7 [place] [address] Care Team Providers Care Mechanical Reliability Engineer Name Role Phone Sandra Alcantar Primary Care Provider [phone] Pinky Perez RN Unavailable [phone] Denisse Hernandez Unavailable Denisse Hernandez Unavailable Reason for Visit * Reason Onset Date Comments Med Refill 10/14/2023 Encounter Details Date Type Department Care Team ([facility] st Contact Info) Description 10/14/2023 Telephone [facility] MEDICINE [address] [place], [place] [phone] Sandra Alcantar, ANP [address] [place], [place] [phone] Med Refill Social History Tobacco Use Types [...] Patient Health Questionnaire-2 Score 0 08/07/2022 Comments No Sex and Gender Information Value Date Recorded Sex Assigned at Female 01/28/2022 10:30 AM EDT Legal Sex Female 10:30 AM EDT Gender Identity Female 01/28/2022 10:30 AM EDT Sexual Orientation Straight 01/28/2022 10 :30 AM EDT documented as of this encounter Miscellaneous Notes * Telephone Encounter - Martin Martinez - 10/14/2023 4:41 PM EDT TC from pt requesting medication refill. Medications needing refill : oxyCODONE-acetaminophen (Percocet) 5-325 MG tablet To be sent to: [facility]/pharmacy #[id number] - [place] - [address] [facility] Pharmacy advised pt they have not received script documented in this encounter Plan of Treatment Upcoming Encounters Date Type Department Care Team (Late st Contact Info) Description 03/22/2025 11:30 AM EST Office Visit [facility] MEDICINE [address] [place] [address] Sandra Alcantar ANP [address] [place] [address] Arrived 05/11/2025 9:00 AM EST Clinical Support [facility] MED [facility] PEDS [address] [place] [address] Maddison Corley, BRANDIE [address] [place] [address] documented as of this encounter Visit Diagnoses Not on filedocumented in this encounter Additional Health Concerns Assessment Noted Time PHQ-9 Depression Total Score: 0 08/08/19 23 10:21 AM EDT documented as of this encounter Care Teams Mechanical Reliability Engineer Relationship Specialty Start Date End Date Sandra Alcantar ANP [address] [place] [address] PCP - General Family Medicine 12/27/21 Pinky Perez RN [address] [place] [address] Perishable Freight InspectorMaterials Supervisor 06/08/24 09/02/24 Denisse Hernandez 12/13/24 12/15/24 Denisse Hernandez 02/22/25 03/04/25 Kathie Holloway Perishable Freight InspectorMaterials Supervisor 12/13/24 documented as of this encounter
--- OUTSIDE RECORDS SUMMARY | 2025-03-22 09:57 | XMS_ITS | Data Portability ---
Author Organization [facility], [facility] Address [address] [place] [address] Care Team Providers Care Cloth Presser Name Role Phone Floridalma Alcantar Primary Care Provider [phone] Assessment No assessment recorded. Plan of Treatment Reminders Order Date Submit Date Provider Name Organization Details Last Modified By Last Modified Time Details Appointments None recorde d. Lab None recorde d. Referral None recorde d. Procedures None recorde d. Surgeries None recorde d. Imaging MRI, lumbar spine, w/o contras t 2024 14:10: 20 025 Florencia Lynn, HÉCTOR [facility] ([facility]) [address], [place], [address], [facility] 5 11:34:19 XR, lumbar spine, 2 view 2024 13:25: 49 025 Florencia Lynn CNP [place] [facility] [address],[facility] [address], [place], [address], [facility] 5 11:34:19 MedicationOrders None recorde d. VaccineOrders None recorde d. Patient TargetsNo targets recorded. Patient InstructionsNo instructions recorded. Reason for Referral None Reported. Results Created Date Observation Date Name Description Value Unit Range Abnormal Flag Specimen Type Note LastModifiedBy Organization Detail LastModifiedTime 06/28/2024 06/28/2024 lumbar spine 2 view [email or web address]=[email or web address]%2XIUvgHkadi5cjxe%4Qj8JMl0 flYdcM6cHyFPnrwZp8WeJTGqLpeYBR4uGgYNibj28u5448PZ5NwFhLZHYhwVcNbvFvT Not Available [facility] , [address] , [place] , [address], , 06/28/2024 13:34:02 06/28/2024 06/28/2024 lumbar spine 2 view [email or web address]=[email or web address] pvSpjG8bTlIQegxDj7EkYHCoBtwUZY9jPhHBbio24a8625AD6AnOeCHAOfuMeYbtFkO Not Available [facility] Office , [address],[facility] [address] , [place] , [address], , 06/28/2024 13:34:04 07/01/2024 07/01/2024 MR, lumbar spine (C-) CPT 39982 [facility] cession Number: [id number] Patient Name: Allison Bagley Date of : 1985 Date of Exam: 07-01-2024 Referring Physician: Florencia Lynn [facility] [address] [place], [place] [address] Exam: MR Lumbar Spine (C-) CPT 27778 Room Description: [facility] 1.5 MRI of the lumbar spine [...] the lumbar spine. Electronically Signed By: King Lynn, PHLEBOTOMIST ASSOCIATE [facility] ([facility]) , [address] , [place] , [address], [place] , 07/06/2024 11:18:54 Result Notes Documentation Provider Name and Address Organization Details Recorded Time Xr, Lumbar Spine, 2 View : [email or web address] Encrypted=tnWhLyjAV1lQhwM Uv6g%8LCCpjBzgup1cxsh%2Fg 9OMt4vqZsxT9tNdMNnrqVf1Oq [id number] 2RL5KyMoYBEQyxAhPxbLpH Not Available [facility] 06/28/2024 13:34:02 Xr, Lumbar Spine, 2 View : [email or web address] Encrypted=dyQyYjnIK8jYyiB Uv6g%2QCPntCfskx8tkop%2Fg 3NPn7udDcdS4jMnVCluwHs9Uc [id number] 0US9PuOhDZFWbnPfWqrQjN Not Available [facility] 06/28/2024 13:34:04 Mri, Lumbar Spine, W/o Contrast : [facility] Accession Number: [id number] Patient Name: Allison Bagley Date of : 1985 Date of Exam: 07-01-2024 Referring Physician: Florencia Lynn [facility] [address] [place], [place] [address] Exam: MR Lumbar Spine (C-) CPT 56604 Room Description: [facility] 1.5 MRI of the lumbar spine [...] the lumbar spine. Electronically Signed By: King Lynn, PHLEBOTOMIST ASSOCIATE [address], [place], [address], [facility] 07/06/2024 11:18:54 Problems Name Problem SNOMED Code Status Onset Date Resolution Date Notes Provider Name and Address Organization Details Recorded Time No complaints 480278932 Active Status : 'A'; Not Available [facility] 4 09:12:02 Low back pain 056451950 Active 2024 Florencia Lynn CNP [address], [place], [address] , [facility] 5 11:20:04 Problem Notes None recorded. Medical Equipment None Reported. Allergies Allergen ID Allergen Name Allergen Category Reaction Reaction Severity Criticality Documentation Date Start Date Code Code System Note Provider Name and Address Organization Details Recorded Time 55918 Shellfish (substanc e) food,medi cation Not available Not available Not available 06/02/20232017 30631 9006 SNOMED Not Available [facility] 4 13:27:30 Medications Name Authored On Sig Start Date Stop Date Status Note Indication Fill Status Repeat Number Dispense Quantity LastModified by Organization Details LastModified Time lidoc rafael 5 % topic al patch 5 13:18:27 APPL Y 1 PATC H KASSY Y, CAN WEAR UP TO 12 HOUR S active Not Available Not availab le 0 Not Available Not Available pema - External Data Service - prod 06/28/2024 13:18:27 triam cinol one aceto nide 0.1 % topic al ointm ent 5 13:18:27 APPL Y TO AFFE CTED AREA TWIC E A DAY active Not Available Not availab le 0 Not Available Not Available pema - External Data Service - prod 06/28/2024 13:18:27 halie calci ferol (moe min D3) 125 mcg (5,00 0 unit) capsu le 5 13:18:28 TAKE 1 CAPS ULE BY MOUT H EVER Y DAY active Not Available Not availab le 0 Not Available Not Available pema - External Data Service - prod 06/28/2024 13:18:28 ketor olac 10 mg table t 5 13:18:28 TAKE 1 TABL ET 4 TIME S A DAY NEED ED FOR PAIN , MAX 40 MG/D AY AND 5 DAYS . RECE IVED 30MG IM IN THE ED active Not Available Not availab le 0 Not Available Not Available pema - External Data Service - prod 06/28/2024 13:18:28 oxyco done- aceta minop hen 5 mg-32 5 mg table t 5 13:18:28 TAKE 1 TABL ET BY MOUT H EVER Y 8 (EIG HT) HOUR S IF NEED ED FOR ALICIA RE PAIN FOR UP TO 28 DAYS . active Not Available Not availab le 0 Not Available Not Available pema - External Data Service - prod 06/28/2024 13:18:28 phent ermin e 37.5 mg capsu le 5 13:18:32 TAKE 1 CAPS ULE ONCE KASSY Y WITH BFAS T OR LUNC H active Not Available Not availab le 0 Not Available Not Available pema - External Data Service - prod 06/28/2024 13:18:32 hydro corti sone 2.5 % topic al ointm ent 5 13:18:33 APPL Y TO AFFE CTED AREA TWIC E A DAY FOR 14 DAYS active Not Available Not availab le 0 Not Available Not Available pema - External Data Service - prod 06/28/2024 13:18:33 doxyc yclin e hycla te 100 mg capsu le 5 13:18:36 TAKE 1 CAPS ULE BY MOUT H TWIC E A DAY FOR 7 DAYS active Not Available Not availab le 0 Not Available Not Available pema - External Data Service - prod 06/28/2024 13:18:36 magne sium oxide 400 mg (241. 3 mg magne sium) table t 5 13:18:36 TAKE 1 TABL ET BY MOUT H EVER Y DAY active Not Available Not availab le 0 Not Available Not Available pema - External Data Service - prod 06/28/2024 13:18:36 melox icam 7.5 mg table t 5 13:18:37 TAKE 1 TABL ET (7.5 MG) BY MOUT H ONCE PER DAY. active Not Available Not availab le 0 Not Available Not Available pema - External Data Service - prod 06/28/2024 13:18:37 hydro jill ne 4 % topic al cream 13:18:38 APPL Y TO AFFE CTED AREA TWIC E A DAY active Not Available Not availab le 0 Not Available Not Available pema - External Data Service - prod 06/28/2024 13:18:38 predn isone 50 mg table t 5 13:18:38 TAKE 1 TABL ET BY MOUT H EVER Y DAY FOR 5 DAYS active Not Available Not availab le 0 Not Available Not Available pema - External Data Service - prod 06/28/2024 13:18:38 valac yclov ir 1 gram table t 5 13:18:39 TAKE 1 TABL ET BY MOUT H EVER Y 12 HOUR S FOR 10 DAYS active Not Available Not availab le 0 Not Available Not Available pema - External Data Service - prod 06/28/2024 13:18:39 oxyco done HCl-o xycod one-A SA 4 17:23:32 oxyC ODON E HCl 5MG Tabl et 06/28 aborted Statu s: 'Curr ent'; Not Available Not availab le 0 Not Available Claudette Jordan [place] - [facility] 06/28/2024 13:24:12 clotr imazo le-be tamet hason e 1 %-0.0 5 % topic al cream 5 12:41:59 APPL Y TO AFFE CTED AREA TWIC E A DAY FOR 7 DAYS active Not Available Not availab le 0 Not Available Not Available pema - External Data Service - prod 07/11/2024 12:41:59 aceta minop hen 500 mg table t 5 13:32:34 TAKE 1 OR 2 TABL ET BY ORAL ROUT E EVER Y 8 HOUR S NEED ED, DO NOT EXCE ED 6 TABL ETS PER 24 HRS active Not Available Not availab le 0 Not Available Not Available pema - External Data Service - prod 07/18/2024 13:32:34 diclo fenac 1 % topic al gel 5 13:32:35 APPL Y UP TO 4 TIME S A DAY TO AFFE CTED JOIN T(S) FOR PAIN /SWE LLIN G active Not Available Not availab le 0 Not Available Not Available pema - External Data Service - prod 07/18/2024 13:32:35 sumat ripta n 100 mg table t 13:32:35 TAKE 1 TABL ET BY MOUT H 1 TIME IF NEED ED FOR MIGR RAFAEL . DO NOT EXCE ED 2 DOSE S IN 24 HOUR S. active Not Available Not availab le 0 Not Available Not Available pema - External Data Service - prod 07/18/2024 13:32:35 gabap entin 300 mg capsu le 5 01:13:04 TAKE 1 CAPS ULE BY MOUT H IN THE MORN ING, 1 CAPS ULE IN THE AFTE RNOO N, AND 2 CAPS ULES AT BEDT TIM X1 WEEK . IF INSU FFIC IENT PAIN RELI EF, INCR EASE TO 1 CAPS ULE IN THE MORN ING, 2 IN THE AFTE RNOO N, AND 2 AT BEDT TIM complet ed Lumbar radiculopat hy Not availab le 0 Not Available Not Available [facility] 08/10/2024 10:58:01 Vitals Date Recorded Body height Body mass index (BMI) Body weight Provider Name and Address Organization Details Last Updated DateTime 06/28/2024 149.86 cm 30.7 kg/m2 57866.04 g Claudette Jordan [place] - [facility] 06/28/2024 13:24:00 Social History Social History Observation Description Date Observed Sex Unknown 07/13/2024 [place] Affiliation 07/13/2024 Legal Sex Female Status Not (finding) 03/22/20 25 No social history survey screeners recorded No social history SDOH screeners recorded Functional Status None recorded. No Functional Screening assessment recorded No Functional SDOH screeners recorded Mental Status None recorded. No Mental Screening assessment recorded No Mental SDOH screeners recorded Family History Nothing Reported. Medical History Condition Response Circulation Problems Y Nerve Disorders Y Anxiety/Depression Y Headaches Y Sleep Apnea Y Gynecological HistoryNo gynecological history recorded. Obstetrics History GPAL:G 0 P 0 0 0 0 Past Encounters Encounter ID Performer Location Encounter Start Date Encounter Closed Date Diagnosis/Indication Diagnosis SNOMED-CT Code Diagnosis ICD10 Code Diagnosis IMO Codes Diagnosis Note [id number] Florencia Lynn, [facility]CTOR [facility] [address] [place] [address] 06/28/2024 13:10:31 07/13/2024 11:34:18 Chronic low back pain 834965926 M54.50 G89.29 [id number] Lumbar radiculopathy 128 243860 M54.16 10998 Health Concerns Section Related Observation LastModified by Organization Detai ls LastModified Time None Recorded Concern Status LastModified by Organization Details LastModified Time None Recorded SDOH Concern Status LastModified by Organization Detai ls LastModified Time None Recorded Advance Directives Directive None Recorded Payers Insurance Date Sequence Insurance Name Policy Number Policy Hammond Covered Member ID Hammond Member ID Guarantor Name 06/28/2024 1 MEDICAID-[place] - [facility] (MEDICAID) Allison Freedman [id number] Allison Bagley 07/13/2024 1 MEDICAID-[place]: [facility] Allison Pereirazo [id number] Allison Bagley Notes Date Note Type Note [...] has been following with pain management at [facility]. In January 2024 she had injection which greatly improved her pain. She then had nerve ablation in January which unfortunately greatly increased her pain. She reports constant pain in all positions. She also had right piriformis injection last month with [facility], no improvement.Constant pain now requiring oxycodone prescribed by her PCP. Also takes Tylenol, gabapentin, lidocaine patches, heat, salt water baths, physical therapy. Had to quit her job as a [employer] due to constant pain. No bowel or [...] oxycodone, back injections, nerve ablation WORK STATUS: [employer] (currently unemployed) MSK EXAM: examination of the [...] rays ordered, obtained, and independently reviewed at [facility] today. 2 views lumbar spine reveals diffuse spondylosis and facet arthropathic. Significant disc space narrowing L5-S1.- EMG 10/11/2020 [facility] reports There is nerve conduction study evidence [...] results. FOLLOW UP: MRI review Speech recognition welding engineer software was used to create portions of this document. An attempt at proofreading has been made to minimize errors. Please call for corrections. time spent 45 mins. Comprehensive evaluation, NEOS and CIS chart review, new XR. Florencia Lynn, PHLEBOTOMIST ASSOCIATE [address] [facility] [address], [place], [address], [facility] - [facility] 06/28/2024 19:14:44 Care Team Name Role Member ID Specialty Address Phone FLORIDALMA CHINO Primary Care Provider [id number] OBGyn Episode No OBEpisode recorded.
--- OUTSIDE RECORDS SUMMARY | 2025-03-22 09:57 | XMS_ITS | Encounter Summary ---
Author Organization [facility] Address [address] [place] [address] Care Team Providers Care Operations Accountant Name Role Phone Rina Crawford MD Primary Care Provider [phone] Encounter Details Date Type Department Care Team ([facility] Contact Info) Description 02/08/2025 Results Follow-Up Obstetrics and Gynecology [address] [address] Codi Magallon, RN Social History Tobacco Use Types Packs/Day Years Used Date Smoking Tobacco: Never Smokeless Tobacco: Never Alcohol Use Standard Drinks/Week Comments No 0 (1 standard drink = 0.6 oz pur e alcohol) Comments Unknown Sex and Gender Information Value Date Recorded Sex Assigned at Not on file Legal Sex Female 1:10 PM EST Gender Identity Not on file Sexual Orientation Not on file 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
--- OUTSIDE RECORDS SUMMARY | 2025-03-22 09:57 | XMS_ITS | Encounter Summary ---
Author Organization [employer] Address [address] [facility] 7 [place] [address] Care Team Providers Care Boiler Washer Name Role Phone Sandra Alcantar Primary Care Provider [phone] Denisse Hernandez Unavailable Denisse Hernandez Unavailable Reason for Visit * Reason Onset Date Comments Med Refill 12/13/2024 Encounter Details Date Type Department Care Team ([facility] st Contact Info) Description 12/13/2024 Refill [facility] [address] [place], [place] [phone] Sandra Alcantar ANP 230 [place], [place] [phone] Social History Tobacco Use Types Packs/Day Years [...] got money to buy more: Never True 12/08/2024 Within the past 12 months,th e food you bought just didn't last and you didn't have enough money to get more: Not on file 12/2024 Transportation Answer Date Recorded In the past [...] Description 03/22/2025 11:30 AM EST Office Visit [facility] [address] [place] [address] Sandra Alcantar ANP 230 [place] [address] Arrived 05/11/2025 9:00 AM EST Clinical Support [facility]EDS 505 [place] [address] Maddison Corley, RN 505 [place] [address] documented as of this encounter Visit Diagnoses Not on filedocumented in this encounter Additional Health Concerns Assessment Noted Time PHQ-9 Depression Total Score: 0 09/21/19 25 1:27 PM EDT documented as of this encounter Care Teams Boiler Washer Relationship Specialty Start Date End Date Sandra Alcantar ANP [address] [place] [address] PCP - General Family Medicine 12/27/21 Denisse Hernandez 12/13/24 12/15/24 Denisse Hernandez 02/22/25 03/04/25 Kathie Holloway Casing OperatorGis Technician 12/13/24 documented as of this encounter
--- OUTSIDE RECORDS SUMMARY | 2025-03-22 09:57 | XMS_ITS | Encounter Summary ---
Author Organization [employer] Address [address] [facility] 7 [place] [address] Care Team Providers Care Treasury Assistant Name Role Phone Sandra Alcantar Primary Care Provider [phone] Pinky Perez RN Unavailable [phone] Denisse Hernandez Unavailable Denisse Hernandez Unavailable Reason for Visit * Reason Onset Date Comments Med Refill 03/26/2024 Encounter Details Date Type Department Care Team ([facility] st Contact Info) Description 03/26/2024 Refill [facility] [address] [place], [place] [phone] Sandra Alcantar, ANP 230 [place], [place] [phone] Sural neuropathy, unspecified laterality Social History Tobacco Use Types Packs/Day Years Used Date Smoking Tobacco: Never Passive Smoke Exposure: Never Smokeless Tobacco: Never Alcohol Use Standard Drinks/Week Comments Never 0 (1 standard drink = 0.6 oz pur e alcohol) Depression Answer Date Recorded Patient Health Questionnaire-9 Score 5 12/15/2023 Patient Health Questionnaire-9 Score 5 12/15/2023 Last PHQ-9: Questionnaire Data Not on file 0 12/15/2023 Housing Stability Answer Date Recorded What is your housing situation today? I have tyrel roche 12/08/[address] you li ve. Do you have problems with any of the following? Mold 12/08/2023 Food Insecurity Answer Date Recorded Within the past 12 months, y ou worried that your food would run out before you got money to buy more: Sometimes True 2023 Within the past 12 months,th e food you bought just didn't last and you didn't have enough money to get more: Sometimes True 12/08/2023 Transportation Answer Date Recorded In the past [...] Date Recorded Patient Health Questionnaire-2 Score 0 12/15/2023 Internet Access Answer Date Recorded Internet Access [...] Description 03/22/2025 11:30 AM EST Office Visit [facility] [address] [place] [address] Sandra Alcantar ANP 230 [place] [address] Arrived 05/11/2025 9:00 AM EST Clinical Support [facility] PEDS 505 [place] [address] Maddison Corley, BRANDIE 505 [place] [address] documented as of this encounter Visit Diagnoses Diagnosis Sural neuropathy, unspecified laterality documented in this encounter Additional Health Concerns Assessment Noted Time PHQ-9 Depression Total Score: 5 12/15/19 24 3:16 PM EDT documented as of this encounter Care Teams Treasury Assistant Relationship Specialty Start Date End Date Sandra Alcantar ANP [address] [place] [address] PCP - General Family Medicine 12/27/21 Pinky Perez RN [address] [place] [address] Wheel Lacer And TruerTubular Riveter 06/08/24 09/02/24 Denisse Hernandez 12/13/24 12/15/24 Denisse Hernandez 02/22/25 03/04/25 Kathie Holloway Wheel Lacer And TruerTubular Riveter 12/13/24 documented as of this encounter
--- OUTSIDE RECORDS SUMMARY | 2025-03-22 09:57 | XMS_ITS | Encounter Summary ---
Author Organization [facility] Address [address] [place] [address] 7t [place] [address] Care Team Providers Care Undertaker Helper Name Role Phone Sandra Alcantar Primary Care Provider [phone] Pinky Perez RN Unavailable [phone] Denisse Hernandez Unavailable Denisse Hernandez Unavailable Encounter Details Date Type Department Care Team (Late Contact Info) Description 03/15/2022 Orders Only [facility] [address] [place] [phone] Susi Pool, RN Social History Tobacco Use Types Packs/Day Years Used Date Smoking Tobacco: Former Cigarettes Smokeless Tobacco: Never Comments Unknown Sex and Gender Information Value [...] suspected to have Coronavirus/COVID-19? No / Unsure 03/05/2022 3:13 PM EST documented as of this encounter Plan of Treatment Upcoming Encounters Date Type Department Care Team (Late Contact Info) Description 03/22/2025 11:30 AM EST Office Visit [facility] [address] [place] [address] [phone] Sandra Alcantar ANP 230 [place], [place] [phone] Arrived 05/11/2025 9:00 AM EST Clinical Support [facility] MED [facility] PEDS [address] [place], [place] [phone] Maddison Corley RN 505 [place] [address] documented as of this encounter Visit Diagnoses Not on filedocumented in this encounter Care Teams Undertaker Helper Relationship Specialty Start Date End Date Sandra Alcantar ANP [address] [place] [address] PCP - General Family Medicine 12/27/21 Pinky Perez RN 505 [place] [address] Steamship AgentBrazer Production Line 06/08/24 09/02/24 Denisse Hernandez 12/13/24 12/15/24 Denisse Hernandez 02/22/25 03/04/25 Kathie Holloway Steamship AgentBrazer Production Line 12/13/24 documented as of this encounter
--- OUTSIDE RECORDS SUMMARY | 2025-03-22 09:57 | XMS_ITS | Clinical Summary ---
Author Organization [facility] Address [address] [place] [phone] Phone Care Team Providers Care Trimming Department Blocker Name Role Phone Rina Crawford MD Primary Care Provider [phone] Allergies Active Allergy Reactions Criticality Noted Date [...] FOR 7 DAYS 30 g 5 Active ALPRAZolam (XANAX) 1 mg tablet TAKE 1 TABLET 1 HOUR PRIOR TO INJECTION 5 Active EPINEPHrine (EPIPEN) 0.3 mg/0.3 mL injection PLEASE SEE ATTACHED FOR DETAILED DIRECTIONS 5 Active naloxone (NARCAN) 4 mg/0.1 mL nasal spray PLEASE SEE ATTACHED FOR DETAILED DIRECTIONS 5 Active norelgestromin- ethinyl estradiol (ORTHO EVRA) 150-35 mcg/[address] 1 patch on the skin 1 (one) time per week. 12 each 4 5 01/08/20 26 Active Active Problems Problem Noted Date Diagnosed Date Screening for genetic disease carrier status Overview (06/25/2024): 2022 [facility] screen for BRCA is Negative. 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 Insomnia 03/10/2017 Neuroma of lower extremity 03/10/2017 Menorrhagia 09/25/2016 Myopia 08/14/2016 Ankle pain 01/05/2016 Chronic low back pain 01/05/2016 Generalized anxiety disorder 01/05/2016 Microscopic hematuria 01/05/2016 Migraine 01/05/2016 Scar of skin 01/05/2016 Encounters Date Type Department Care Team Description 02/08/2025 Results Follow-Up Obstetrics and Gynecology - [address] [phone] Codi Magallon RN 02/07/2025 5:55 PM EST - 02/07/2025 11:59 PM EST Hospital Encounter Radiology Department - [address] [phone] Menorrhagia with regular cycle; Dysmenorrhea Discharge Disposition: Home or Self Care 01/07/2025 9:30 AM EDT Office Visit Obstetrics & Gynecology - [address] [phone] Doretha Nye CNM Menorrhagia with regular cycle (Primary Dx); Dysmenorrhea from Last 3 Months Immunizations Immunization Administration Dates Next Due HPV 9-valent (Gardisil) 9yo to less than 46yo 04/12/2024,12/15/2023,08/19/2022 Hepatitis B (Cpirita-I-Cpqtr , Recombivax HB-Adult) 19yo and older 06/08/2020,04/06/2020,02/17/2020 Influenza Quadrivalent, 0.5m l, preservative free (Fluarix; FluLaval; Fluzone) ages 6mo and older (Afluria) 3yo and older 12/12/2022,01/03/2022,01/29/2020,2018,12/27/2016,04/10/2016 Influenza Quadrivalent, with preservative (Fluzone; Afluria) 6mo and older 12/26/2017 Influenza trivalent, 0.5mL, preservative free (Fluarix; FluLaval; Fluzone) ages 6mo and older (Afluria) 3 years and older 12/09/2023 Tdap Tetanus diptheria acell ular pertussis (Boostrix; Adacel) 7yo and older 10/05/2019,04/10/2016 Surgical History Surgery Date Site/Laterality Comments SECTION PROCEDURE: NC DELIVERY ONLY OTHER SURGICAL HISTORY PROCEDURE: NC LIG/TRNSXJ FLP TUBE ABDL/VAG APPR UNI/BI OTHER SURGICAL HISTORY 07/04/2016 PROCEDURE: NC DILATION & CURETTAGE DX&/THER NONOBSTETRIC; COMMENT: Performed by Dr. 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 Para Term AB IAB SAB Ectopic Multiple Livin g Live Births 6 3 3 3 3 Date Outcome GA Total Labor Labor/2nd/3rd Weight Sex Type Anes PTL Keshia A1 A5 Name Clin 2006 Term M CS-Un spec Living 2007 Term M CS-Un spec Living 2009 Term F CS-Un spec Living Last Filed Vital Signs Vital Sign Reading Time Taken Comments Blood Pressure 98/75 01/07/2025 9:49 AM EDT Pulse 78 01/07/2025 9:49 AM EDT Temperature - - Respiratory Rate - - Oxygen Saturation - - Inhaled Oxygen Concentration - - Weight 50.8 kg (112 lb 1.6 oz) 01/07/2025 9:49 A M EDT Height 149.9 cm (4' 11 ) 01/07/2025 9:49 AM EDT Body Mass Index 22.64 01/07/2025 9:49 AM EDT Plan of Treatment Health Maintenance Due Date Last Done Comments Non-Opioid Controlled Substance Agreement 1987 Pneumococcal Vaccine: Pediatrics (0 to 5 Years) and At-Risk Patients (6 to 49 Years) (1 of 2 - PCV) 2006 Social Influencers of Health Screening 06/23/2022 COVID-19 Vaccine ( season) 2024 04/16/2024, 12/25/2022, 05/21/2022, Additional history exists Drug Screen 12/14/2025 12/14/2024, 06/10/2024 Cervical Cancer Screening: HPV 06/01/2027 05/31/2022 Cholesterol Screening (Lipid Panel) 04/08/2028 04/08/2023 DTaP,Tdap,and Td Vaccines (3 - Td or Tdap) 10/04/2029 10/05/2019, 04/10/2016 RSV Immunization Adult Patients (1 - 1-dose 75+ series) 2062 Hepatitis B Vaccines Completed 06/08/2020, 04/06/2020, 02/17/2020 HIV Screening Completed 05/31/2022, 02/08/2020 Hepatitis C Screening Completed 05/31/2022 HPV Vaccines Completed 04/12/2024, 11/29, 08/19/2022 Depression Screening Completed 06/24/2024 Influenza Vaccine Completed 12/21/2024, , 12/12/2022, Additional history exists HIB Vaccines Aged Out No longer eligi [...] Procedure Name Priority Date/Time Associated Diagnosis Comments US PELVIS NON OB COMPLETE W TRANSVAGINAL Routine 02/07/2025 6:13 PM EST Menorrhagia with regular cycle Dysmenorrhea HPV Routine 05/31/2022 HEPATITIS C SCREENING Routine 05/31/2022 HIV SCREENING Routine 05/31/2022 from Last 3 Months or Most Recently Relevant to Health Maintenance Results * US Pelvis Non OB Complete w Transvaginal (02/07/2025 6:13 PM EST) Anatomical Region Laterality Modality Body, Pelvis Ultrasound 02/08/2025 7:39 AM EST Impressions 02/08/2025 7:42 AM EST No uterine or ovarian abnormality identified. -------- FINAL REPORT -------- Dictated By: Sandrita Messina Dictated Date: 02/08/2025 07:39 ET Assigned Physician: Sandrita Messina Reviewed and Electronically Signed By: Sandrita Messina Signed Date: 02/08/2025 07:42 ET Workstation ID: [id number] Transcribed By: Self Edit Transcribed Date: 02/08/2025 07:39 ET Narrative 02/08/2025 7:42 AM EST PELVIC ULTRASOUND HISTORY: Menorrhagia. COMPARISON: 08/05/2022 FINDINGS: Both transabdominal and endovaginal pelvic ultrasound were performed. Uterus: 7.3 x 4.3 x 3.8 cm in size. No focal solid lesion. Endometrium: 0.4 cm in thickness which is within normal limits. No focal abnormality identified. Right ovary: Normal in size measuring 2.0 x 1.9 x 1.3 cm without abnormality. Left ovary: Normal in size measuring 2.1 x 1.8 x 1.4 cm without abnormality. Cul-de-sac: No free fluid. Procedure Note Sandrita Messina MD - 02/08/2025 PELVIC ULTRASOUND HISTORY: Menorrhagia. COMPARISON: 08/05/2022 FINDINGS: Both transabdominal and endovaginal pelvic ultrasound were performed. Uterus: 7.3 x 4.3 x 3.8 cm in size. No focal solid lesion. Endometrium: 0.4 cm in thickness which is within normal limits. No focalabnormality identified. Right ovary: Normal in size measuring 2.0 x 1.9 x 1.3 cm withoutabnormality. Left ovary: Normal in size measuring 2.1 x 1.8 x 1.4 cm withoutabnormality. Cul-de-sac: No free fluid. IMPRESSION: No uterine or ovarian abnormality identified. -------- FINAL REPORT -------- Dictated By: Sandrita Messina Dictated Date: 02/08/2025 07:39 ET Assigned Physician: Sandrita Messina Reviewed and Electronically Signed By: Sandrita Messina Signed Date: 02/08/2025 07:42 ET Workstation ID: [id number] Transcribed By: Self Edit Transcribed Date: 02/08/2025 07:39 ET Doretha Nye CNM IM US PROCEDURES Final Res ult * Cervical Cancer Screening: HPV (05/31/2022) Health system Cervical Cancer Screening: HPV negative, abstracted Historical Provider HEALTH MAINTENANCE Final Result * HIV Screening (05/31/2022) [facility] HIV Screening abstracted Historical Provider HEALTH MAINTENANCE Final Result * Hepatitis C Screening (05/31/2022) Health system Hepatitis C Screening abstracted Historical Provider HEALTH MAINTENANCE Final Result from Last 3 Months or Most Recently Relevant to Health Maintenance Insurance [address] [place] [address] MEDICAID [place] Care Teams Trimming Department Blocker Relationship Specialty Start Date End Date Rina Crawford MD [address] [place], [place] PCP - General 05/28/18
--- OUTSIDE RECORDS SUMMARY | 2025-03-22 09:57 | XMS_ITS | Encounter Summary ---
Author Organization [employer] Address [address] [place] [address] Care Team Providers Care Equipment Tester Name Role Phone Sandra Alcantar Primary Care Provider [phone] Pinky Perez RN Unavailable [phone] Denisse Hernandez Unavailable Denisse Hernandez Unavailable Reason for Visit * Reason Onset Date Comments Med Refill 11/07/2022 Encounter Details Date Type Department Care Team (Late Contact Info) Description 11/07/2022 Refill [facility] [address] [place] [address] Angeles Mallory MD 230 [place] [address] Social History Tobacco Use Types Packs/Day Years [...] Description 03/22/2025 11:30 AM EST Office Visit [facility] [address] [place] [address] Sandra Alcantar ANP 230 [place] [address] Arrived 05/11/2025 9:00 AM EST Clinical Support [facility] MED [facility] PEDS 505 [place] [address] Maddison Corley RN 505 [place] [address] documented as of this encounter Visit Diagnoses Not on filedocumented in this encounter Additional Health Concerns Assessment Noted Time PHQ-9 Depression Total Score: 0 08/08/19 10:21 AM EDT documented as of this encounter Care Teams Equipment Tester Relationship Specialty Start Date End Date Sandra Alcantar ANP [address] [place] [address] PCP - General Family Medicine 12/27/21 Pinky Perez RN [address] [place] [address] Weave Defect Charting ClerkMedical Services Manager 06/08/24 09/02/24 Denisse Hernandez 12/13/24 12/15/24 Denisse Hernandez 02/22/25 03/04/25 Kathie Holloway Weave Defect Charting ClerkMedical Services Manager 12/13/24 documented as of this encounter
--- OUTSIDE RECORDS SUMMARY | 2025-03-22 09:57 | XMS_ITS | Encounter Summary ---
Author Organization [employer] Address [address] [facility] 7t [place] [address] Care Team Providers Care Fur Tailor Name Role Phone Sandra Alcantar Primary Care Provider Pinky Perez RN Unavailable [phone] Denisse Hernandez Unavailable Denisse Hernandez Unavailable Reason for Visit * Reason Comments Med Change Request Encounter Details Date Type Department Care Team ([facility] Contact Info) Description 08/29/2023 Refill [facility] MEDICINE 230 [place], [place] [phone] Kristin Kinsey MD [address] [place], [place] [phone] Trevin Social History Tobacco Use Types Packs/Day Years [...] Description 03/22/2025 11:30 AM EST Office Visit [facility] MEDICINE 230 [place] [address] Sandra Alcantar ANP [address] [place] [address] Arrived 05/11/2025 9:00 AM EST Clinical Support [facility] MED & PEDS 505 [place] [address] Maddison Corley RN 505 [place] [address] documented as of this encounter Visit Diagnoses Diagnosis Melasma Other dyschromia documented in this encounter Additional Health Concerns Assessment Noted Time PHQ-9 Depression Total Score: 0 08/08/19 23 10:21 AM EDT documented as of this encounter Care Teams Fur Tailor Relationship Specialty Start Date End Date Sandra Alcantar ANP [address] [place] [address] PCP - General Family Medicine 12/27/21 Pinky Perez RN [address] [place] [address] Contour Band Saw Operator VerticalCollar Tacker 06/08/24 09/02/24 Denisse Hernandez 12/13/24 12/15/24 Denisse Hernandez 02/22/25 03/04/25 Kathie Holloway Contour Band Saw Operator VerticalCollar Tacker 12/13/24 documented as of this encounter
--- OUTSIDE RECORDS SUMMARY | 2025-03-22 09:57 | XMS_ITS | Encounter Summary ---
Author Organization [employer] Address 75 [facility] 7t [place] [address] Care Team Providers Care Solar Sales Consultant Name Role Phone Sandra Alcantar KALIN Primary Care Provider [phone] Encounter Details Date Type Department Care Team (Latest Contact Info) Description 03/22/2025 Travel Social History Tobacco Use Types Packs/Day Years [...] Description 03/22/2025 11:30 AM EST Office Visit [facility] MEDICINE 230 [place] [address] Sandra Alcantar ANP 230 [place] [address] Arrived 05/11/2025 9:00 AM EST Clinical Support [facility] CH[facility] MED & PEDS 505 [place] [address] Maddison Corley, RN 505 [place] [address] documented as of this encounter Visit Diagnoses Not on filedocumented in this encounter Additional Health Concerns Assessment Noted Time PHQ-9 Depression Total Score: 0 09/21/19 25 1:27 PM EDT documented as of this encounter Care Teams Solar Sales Consultant Relationship Specialty Start Date End Date Sandra Alcantar ANP [address] [place] [address] PCP - General Family Medicine 12/27/21 Kathie Holloway Data Systems ManagerBacteriologist Pharmaceutical 12/13/24 documented as of this encounter
--- OUTSIDE RECORDS SUMMARY | 2025-03-22 09:57 | XMS_ITS | Encounter Summary ---
Author Organization [employer] Address [address] [place] [address] 7 [place] [address] Care Team Providers Care Weaver Hand Loom Name Role Phone Sandra Alcantar Primary Care Provider [phone] Denisse Hernandez Unavailable Reason for Visit * Reason Onset Date Comments Med Refill 01/20/2025 Encounter Details Date Type Department Care Team ([facility] Contact Info) Description 01/20/2025 Refill [facility] MED[facility]INE 230 [place] [address] Sandra Alcantar ANP 230 [place] [address] Social History Tobacco Use Types Packs/Day Years [...] Office Visit [facility] MED[facility]INE 230 [place] [address] Sandra Alcantar ANP 230 [place] [address] Arrived 05/11/2025 9:00 AM EST Clinical Support [facility] MED & PEDS 505 [place] [address] Maddison Corley, RN 505 [place] [address] documented as of this encounter Visit Diagnoses Not on filedocumented in this encounter Additional Health Concerns Assessment Noted Time PHQ-9 Depression Total Score: 0 09/21/19 1:27 PM EDT documented as of this encounter Care Teams Weaver Hand Loom Relationship Specialty Start Date End Date Sandra Alcantar ANP [address] [place] [address] PCP - General Family Medicine 12/27/21 Denisse Hernandez 02/22/25 03/04/25 Kathie Holloway Relay RepairerOrder Caller 12/13/24 documented as of this encounter
--- OUTSIDE RECORDS SUMMARY | 2025-03-22 09:57 | XMS_ITS | Clinical Summary ---
Author Organization [facility] Address [address] [place] [address] Phone Care Team Providers Care Airborne Weapons Technical Manager Name Role Phone Sandra Alcantar NP Primary Care Provider [phone] Social History Tobacco Use Types Packs/Day Years [...] HEPATITIS C SCREENING 2005 HIV ONE-TIME SCREENING (18-65 YEARS) 2005 PAP SMEAR 2008 INFLUENZA VACCINE (#1) 2024 , 01/29/2020, 01/04/2019, Additional history exists COVID-19 VACCINE ( season) 2024 09/30/2020, 08/15/2020 Adult Td,Tdap Booster 10/04/2029 10/05/2019, 017 HEPATITIS A VACCINES Aged Out No long [...] (0-49 years) Aged Out No longer eligible based on patient's age to complete this topic Medical Devices Not on file Insurance C3 ACO C3 ACO C3 ACO C3 ACO C3 ACO C3 ACO Care Teams Airborne Weapons Technical Manager Relationship Specialty Start Date End Date Sandra Alcantar NP 230 [place] [address] PCP - General Family Medicine 03/01/22 Additional Source Comments The information contained in this document represents components of the legal health record. It is not the complete legal health record.[facility]
--- OUTSIDE RECORDS SUMMARY | 2025-03-22 09:57 | XMS_ITS | Encounter Summary ---
Author Organization [employer] Address [address] [facility] 7t [place] [address] Care Team Providers Care Sales And Marketing Assistant Name Role Phone Sandra Alcantar Primary Care Provider [phone] Pinky Perez RN Unavailable [phone] Denisse Hernandez Unavailable Denisse Hernandez Unavailable Reason for Visit * Reason Onset Date Comments triage 05/08/2022 Encounter Details Date Type Department Care Team ([facility] st Contact Info) Description 05/08/2022 Telephone [facility] MEDICINE [address] [place] [address] [phone] Sandra Alcantar ANP [address] [place], [place] [phone] triage Social History Tobacco Use Types Packs/Day Years Used Date Smoking Tobacco: Former Cigarettes Smokeless Tobacco: Never Alcohol Use Standard Drinks/Week [...] suspected to have Coronavirus/COVID-19? No / Unsure 04/19/2022 3:06 PM EST documented as of this encounter Miscellaneous Notes * Telephone Encounter - Petra Eason RN - 05/09/2022 9:55 AM EST T/C returned to pt re below message. Pt has appt with pain clinic on the May. Pt verbalized understanding and denied having any further questions or concerns at this time. * Telephone Encounter - Lianet Rollins RN - 05/08/2022 3:52 PM EST Called pt. Via [employer] [id number] [place]. Pt. Answered but, had bad service (call was breaking up). Loan Workout Officer called pt. Back. Pt. States that she has had sciatic nerve pain for a long time.Pt. Does have a Dr. For her back. Pt. Had EMG done-Negative. Pt. Has been to ED 6-7 times this pastmonth according to her due to pain. Pt. 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 That opened up her foot for surgery and pt. Is afraid that there is nerve pain in her back also. Pt. Never had surgery in her back due to being at the time. Pt. Is having bad nerve pain at present and states that she will have to go to [facility] ED. Pt. Is also looking for refill on Oxycodone as she states she has 2 left. Will send request to PCP. Protocol Used: Back Pain (Adult) Protocol-Based Disposition: See in Office or Video Visit Today- Pt. Will go to ED if needed. Appt. Scheduled for 05/15/22 at 330pm with PCP. Video visit not offered Positive Triage Questions: * Severe back pain (e.g., excruciating, unable to do any normal activities) and not improved after pain medicine and Care Advice * Numbness in a leg or foot (i.e., loss of sensation) * All higher-acuity triage questions were negative Care Advice Discussed: * Cold or Heat * Sleep * Activity * Pain Medicines * Telephone Encounter - Karlo Ashley - 05/08/2022 3:23 PM EST Symptom: Foot or Ankle Pain - Not From Injury Outcome: Talk to a nurse or provider within 15 minutes Reason: Can't walk The caller accepted this outcome speaks maori documented in this encounter Plan of Treatment Upcoming Encounters Date Type Department Care Team (Late st Contact Info) Description 03/22/2025 11:30 AM EST Office Visit [facility] MEDICINE 230 [place] [address] Sandra Alcantar ANP [address] [place] [address] Arrived 05/11/2025 9:00 AM EST Clinical Support [facility] CHC MED & PEDS 505 [place] [address] Maddison Corley RN 505 [place] [address] documented as of this encounter Visit Diagnoses Not on filedocumented in this encounter Care Teams Sales And Marketing Assistant Relationship Specialty Start Date End Date Sandra Alcantar ANP [address] [place] [address] PCP - General Family Medicine 12/27/21 Pinky Perez, BRANDIE 505 [place] [address] Airways Operations SpecialistSvp Digital Sales 06/08/24 09/02/24 Denisse Hernandez 12/13/24 12/15/24 Denisse Hernandez 02/22/25 03/04/25 Kathie Holloway Airways Operations SpecialistSvp Digital Sales 12/13/24 documented as of this encounter
--- OUTSIDE RECORDS SUMMARY | 2025-03-22 09:57 | XMS_ITS | Encounter Summary ---
Author Organization [employer] Address [address] [place] [address] 7 [place] [address] Care Team Providers Care Manager Private Name Role Phone Sandra Alcantar Primary Care Provider [phone] Denisse Hernandez Unavailable Reason for Visit * Reason Onset Date Comments Med Refill 12/16/2024 Encounter Details Date Type Department [facility] ([facility] Description 12/16/2024 Refill [facility] MEDICINE 230 [place], [place] [phone] Sandra Alcantar ANP 230 [place] [address] Social History Tobacco Use Types Packs/Day Years [...] Description 03/22/2025 11:30 AM EST Office Visit [facility] MEDICINE 230 [place] [address] Sandra Alcantar ANP 230 [place] [address] Arrived 05/11/2025 9:00 AM EST Clinical Support [facility] CHC MED & PEDS 505 [place] [address] Maddison Corley, RN 505 [place] [address] documented as of this encounter Visit Diagnoses Not on filedocumented in this encounter Additional Health Concerns Assessment Noted Time PHQ-9 Depression Total Score: 0 09/21/19 1:27 PM EDT documented as of this encounter Care Teams Manager Private Relationship Specialty Start Date End Date Sandra Alcantar ANP [address] [place] [address] PCP - General Family Medicine 12/27/21 Denisse Hernandez 02/22/25 03/04/25 Kathie Holloway Applications Development ConsultantUnit Assistant 12/13/24 documented as of this encounter
--- OUTSIDE RECORDS SUMMARY | 2025-03-22 09:57 | XMS_ITS | Encounter Summary ---
Author Organization [employer] Address [address] [place] [address] [address] [address] Care Team Providers Care Reimbursement Analyst Name Role Phone Sandra Alcantar Primary Care Provider [phone] Pinky Perez RN Unavailable [phone] Denisse Hernandez Unavailable Denisse Hernandez Unavailable Reason for Visit * Reason Comments Med Refill Encounter Details Date Type Department Care Team ([facility] st Contact Info) Description 09/28/2022 Refill [facility] MEDICINE [address] [place] [address] [phone] [place] Mallory MD 230 [place], [place] [phone] Social History Tobacco Use Types Packs/Day Years [...] 03/22/2025 11:30 AM EST Office Visit [facility] MEDICINE 230 [place] [address] Sandra Alcantar ANP 230 [place] [address] Arrived 05/11/2025 9:00 AM EST Clinical Support [facility] CHC MED & PEDS 505 [place] [address] Maddison Corley, BRANDIE 505 [place] [address] documented as of this encounter Visit Diagnoses Not on filedocumented in this encounter Additional Health Concerns Assessment Noted Time PHQ-9 Depression Total Score: 0 08/08/19 10:21 AM EDT documented as of this encounter Care Teams Reimbursement Analyst Relationship Specialty Start Date End Date Sandra Alcantar ANP 230 [place] [address] PCP - General Family Medicine 12/27/21 Pinky Perez RN 505 [place] [address] Associate Professor Of EducationSecond Language Tutor 06/08/24 09/02/24 Denisse Hernandez 12/13/24 12/15/24 Denisse Hernandez 02/22/25 03/04/25 Kathie Holloway Associate Professor Of EducationSecond Language Tutor 12/13/24 documented as of this encounter
--- OUTSIDE RECORDS SUMMARY | 2025-03-22 09:57 | XMS_ITS | Encounter Summary ---
Author Organization [employer] Address [address] [place] [address] 7 [place] [address] Care Team Providers Care Survey Party Chief Name Role Phone Sandra Alcantar Primary Care Provider [phone] Denisse Hernandez Unavailable Reason for Visit * Reason Onset Date Comments Med Refill 02/07/2025 Encounter Details Date Type Department Care Team ([facility] Contact Info) Description 02/07/2025 Refill [facility] MEDICINE 230 [place], [place] [phone] Sandra Alcantar ANP 230 [place] [address] Social History Tobacco Use Types Packs/Day Years [...] Visit [facility] MEDICINE 230 [place] [address] Sandra Alcantar ANP 230 [place] [address] Arrived 05/11/2025 9:00 AM EST Clinical Support [facility] CHC MED & PEDS [address] [place] [address] Maddison Corley, RN 505 [place] [address] documented as of this encounter Visit Diagnoses Not on filedocumented in this encounter Additional Health Concerns Assessment Noted Time PHQ-9 Depression Total Score: 0 09/21/19 1:27 PM EDT documented as of this encounter Care Teams Survey Party Chief Relationship Specialty Start Date End Date Sandra Alcantar ANP [address] [place] [address] PCP - General Family Medicine 12/27/21 Denisse Hernandez 02/22/25 03/04/25 Kathie Holloway Wiring TechnicianLearning Support Resource Room Teacher 12/13/24 documented as of this encounter
--- OUTSIDE RECORDS SUMMARY | 2025-03-22 09:57 | XMS_ITS | Encounter Summary ---
Author Organization [employer] Address 75 [facility] 7t [place] [address] Care Team Providers Care [facility] Shift Lead Name Role Phone Sandra Alcantar Primary Care Provider [phone] Pinky Perez RN Unavailable [phone] Denisse Hernandez Unavailable Denisse Hernandez Unavailable Reason for Visit * Reason Comments Med Refill Encounter Details Date Type Department Care Team ([facility] st Contact Info) Description 07/30/2022 Refill [facility] MEDICINE 230 [place], [place] [phone] Sandra Alcantar ANP 230 [place], [place] [phone] Low back pain radiating to right leg [...] suspected to have Coronavirus/COVID-19? No / Unsure 07/31/2022 1:59 PM EDT documented as of this encounter Miscellaneous Notes * Telephone Encounter - Mylene Castillo RN - 08/02/2022 1:04 PM EDT Triage call Pt calling about possible restless leg syndrome . Pt reports the right leg has had this but, now the left leg is starting to have the tingling feeling. Pt reports uses the machine for circulation and it makes it feel better. Pt has apt for physical 08/07 and will speak to provider then. Protocol Used: Leg Pain (Adult) Protocol-Based Disposition: Home Care Positive Triage Question: * Caused by brief (now gone) muscle cramps in the thigh or calf * All higher-acuity triage questions were negative Care Advice Discussed: * Use a Cold Pack for Pain * Use Heat on Area After 48 Hours documented in this encounter Plan of Treatment Upcoming Encounters Date Type Department Care Team (Late st Contact Info) Description 03/22/2025 11:30 AM EST Office Visit [facility] MEDICINE [address] [place] [address] Sandra Alcantar ANP 230 [place] [address] Arrived 05/11/2025 9:00 AM EST Clinical Support [facility] CHC MED & PEDS 505 [place] [address] Maddison Corley RN 505 [place] [address] documented as of this encounter Visit Diagnoses Diagnosis Low back pain radiating to right leg Lumbago documented in this encounter Care Teams [facility] Shift Lead Relationship Specialty Start Date End Date Sandra Alcantar ANP 230 [place] [address] PCP - General Family Medicine 12/27/21 Pinky Perez, BRANDIE 505 [place] [address] Production SamplerWeapons Engineer 06/08/24 09/02/24 Denisse Hernandez 12/13/24 12/15/24 Denisse Hernandez 02/22/25 03/04/25 Kathie Holloway Production SamplerWeapons Engineer 12/13/24 documented as of this encounter
--- OUTSIDE RECORDS SUMMARY | 2025-03-22 09:57 | XMS_ITS | Encounter Summary ---
Author Organization [employer] Address 75 [facility] 7 [place] [address] Care Team Providers Care Fountain Worker Name Role Phone Sandra Alcantar Primary Care Provider [phone] Denisse Hernandez Unavailable Denisse Hernandez Unavailable Reason for Visit * Reason Onset Date Comments Med Refill 11/20/2024 Encounter Details Date Type Department Care Team ([facility] st Contact Info) Description 11/20/2024 Refill [facility] MEDICINE 230 [place], [place] [phone] Sandra Alcantar ANP 230 [place], [place] [phone] Social History Tobacco Use Types Packs/Day Years [...] Description 03/22/2025 11:30 AM EST Office Visit [facility] MEDICINE [address] [place] [address] Sandra Alcantar ANP 230 [place] [address] Arrived 05/11/2025 9:00 AM EST Clinical Support [facility] CHC MED & PEDS 505 [place] [address] Maddison Corley, BRANDIE 505 [place] [address] documented as of this encounter Visit Diagnoses Not on filedocumented in this encounter Additional Health Concerns Assessment Noted Time PHQ-9 Depression Total Score: 0 09/21/19 1:27 PM EDT documented as of this encounter Care Teams Fountain Worker Relationship Specialty Start Date End Date Sandra Alcantar ANP [address] [place] [address] PCP - General Family Medicine 12/27/21 Denisse Hernandez 12/13/24 12/15/24 Denisse Hernandez 02/22/25 03/04/25 Kathie Holloway Long Chain Quiller TenderAd Writer 12/13/24 documented as of this encounter
--- OUTSIDE RECORDS SUMMARY | 2025-03-22 09:57 | XMS_ITS | Encounter Summary ---
Author Organization [employer] Address 75 [facility] 7 [place] [address] Care Team Providers Care Senior Developer Name Role Phone Sandra Alcantar Primary Care Provider [phone] Denisse Hernandez Unavailable Denisse Hernandez Unavailable Reason for Visit * Reason Onset Date Comments Med Refill 12/03/2024 Encounter Details Date Type Department Care Team ([facility] st Contact Info) Description 12/03/2024 Refill [facility] MEDICINE 230 [place], [place] [phone] Sandra Alcantar ANP [address] [place], [place] [phone] Neuropathy of right sural nerve Social History Tobacco Use Types Packs/Day Years [...] AM EST Office Visit [facility] MEDICINE [address] [place] [address] Sandra Alcantar ANP [address] [place] [address] Arrived 05/11/2025 9:00 AM EST Clinical Support [facility] CHC MED & PEDS 505 [place] [address] Maddison Corley, BRANDIE 505 [place] [address] documented as of this encounter Visit Diagnoses Diagnosis Neuropathy of right sural nerve documented in this encounter Additional Health Concerns Assessment Noted Time PHQ-9 Depression Total Score: 0 09/21/19 25 1:27 PM EDT documented as of this encounter Care Teams Senior Developer Relationship Specialty Start Date End Date Sandra Alcantar ANP [address] [place] [address] PCP - General Family Medicine 12/27/21 Denisse Hernandez 12/13/24 12/15/24 Denisse Hernandez 02/22/25 03/04/25 Kathie Holloway Travel Ticketing ReviewerFacility Practice Specialist 12/13/24 documented as of this encounter
--- OUTSIDE RECORDS SUMMARY | 2025-03-22 09:57 | XMS_ITS | Encounter Summary ---
Author Organization [employer] Address 75 [facility] 7 [place] [address] Care Team Providers Care Astronomy Teacher Name Role Phone Sandra Alcantar Primary Care Provider [phone] Reason for Visit * Reason Onset Date Comments Med Refill 03/17/2025 Encounter Details Date Type Department Care Team ([facility] Contact Info) Description 03/17/2025 Refill [facility] MEDICINE 230 [place], [place] [phone] Sandra Alcantar ANP [address] [place] [address] Neuropathy of right sural nerve Social History [...] Description 03/22/2025 11:30 AM EST Office Visit [facility] MEDICINE 230 [place] [address] Sandra Alcantar ANP 230 [place] [address] Arrived 05/11/2025 9:00 AM EST Clinical Support [facility] CHC MED & PEDS 505 [place] [address] Maddison Corley, RN 505 [place] [address] documented as of this encounter Visit Diagnoses Diagnosis Neuropathy of right sural nerve documented in this encounter Additional Health Concerns Assessment Noted Time PHQ-9 Depression Total Score: 0 09/21/19 25 1:27 PM EDT documented as of this encounter Care Teams Astronomy Teacher Relationship Specialty Start Date End Date Sandra Alcantar ANP [address] [place] [address] PCP - General Family Medicine 12/27/21 Kathie Holloway Draw Machine OperatorMold Holder 12/13/24 documented as of this encounter
--- OUTSIDE RECORDS SUMMARY | 2025-03-22 09:57 | XMS_ITS | Encounter Summary ---
Author Organization [employer] Address 75 [facility] 7t [place] [address] Care Team Providers Care Eight Arm Operator Name Role Phone Sandra Alcantar Primary Care Provider [phone] Pinky Perez RN Unavailable [phone] Denisse Hernandez Unavailable Denisse Hernandez Unavailable Encounter Details Date Type Department Care Team ([facility] Contact Info) Description 02/18/2023 Telephone [facility] MEDICINE 230 [place], [place] [phone] Sandra Alcantar ANP 230 [place], [place] [phone] Social History Tobacco Use Types Packs/Day Years [...] * Telephone Encounter - Eliel Hunter - 02/18/2023 10:44 AM EST Tc from pt requesting script for oxyCODONE-acetaminophen (Percocet) 5-325 MG tablet be sent to [facility] - [place], [place] - [address] [place] [address]. Pt stated [facility] is out of stock. documented in this encounter Plan of Treatment Upcoming Encounters Date Type Department Care Team (Late st Contact Info) Description 03/22/2025 11:30 AM EST Office Visit [facility] MEDICINE [address] [place] [address] Sandra Alcantar ANP [address] [place] [address] Arrived 05/11/2025 9:00 AM EST Clinical Support [facility] CHC MED & PEDS 505 [place] [address] Maddison Corley, BRANDIE 505 [place] [address] documented as of this encounter Visit Diagnoses Not on filedocumented in this encounter Additional Health Concerns Assessment Noted Time PHQ-9 Depression Total Score: 0 08/08/19 10:21 AM EDT documented as of this encounter Care Teams Eight Arm Operator Relationship Specialty Start Date End Date Sandra Alcantar ANP [address] [place] [address] [place] [address] PCP - General Family Medicine 12/27/21 Pinky Perez RN [address] [place] [address] Manager Of Broadcast ContentGang Tailer 06/08/24 09/02/24 Denisse Hernandez 12/13/24 12/15/24 Denisse Hernandez 02/22/25 03/04/25 Kathie Holloway Manager Of Broadcast ContentGang Tailer 12/13/24 documented as of this encounter
--- OUTSIDE RECORDS SUMMARY | 2025-03-22 09:57 | XMS_ITS | Encounter Summary ---
Author Organization [employer] Address 75 [facility] 7t [place] [address] Care Team Providers Care Exhibitions Curator Name Role Phone Sandra Alcantar Primary Care Provider [phone] Pinky Perez RN Unavailable [phone] Denisse Hernandez Unavailable Denisse Hernandez Unavailable Reason for Visit * Reason Onset Date Comments Med Refill 12/09/2023 Encounter Details Date Type Department Care Team (Late st Contact Info) Description 12/09/2023 Refill [facility] MEDICINE 230 [place], [place] [phone] Sandra Alcantar, ANP 230 [place], [place] [phone] Chronic pain of right ankle Social History [...] housing situation today? I have tyrel sing 12/08/[address] you li [...] Recorded Patient Health Questionnaire-2 Score 0 08/07/2022 Internet Access Answer Date Recorded Internet Access [...] Visit [facility] MEDICINE [address] [place] [address] Sandra Alcantar ANP [address] [place] [address] Arrived 05/11/2025 9:00 AM EST Clinical Support [facility] CHC MED & PEDS [address] [place] [address] Maddison Corley RN 505 [place] [address] documented as of this encounter Visit Diagnoses Diagnosis Chronic pain of right ankle documented in this encounter Additional Health Concerns Assessment Noted Time PHQ-9 Depression Total Score: 0 08/08/19 10:21 AM EDT documented as of this encounter Care Teams Exhibitions Curator Relationship Specialty Start Date End Date Sandra Alcantar ANP [address] [place] [address] PCP - General Family Medicine 12/27/21 Pinky Perez RN [address] [place] [address] Mall Plant CaretakerClinical Trial Coordinator 06/08/24 09/02/24 Denisse Hernandez 12/13/24 12/15/24 Denisse Hernandez 02/22/25 03/04/25 Kathie Holloway Mall Plant CaretakerClinical Trial Coordinator 12/13/24 documented as of this encounter
--- OUTSIDE RECORDS SUMMARY | 2025-03-22 09:57 | XMS_ITS | Encounter Summary ---
Author Organization [employer] Address [address] [place] [address] 7 [place] [address] Care Team Providers Care Supervisor Rework Name Role Phone Sandra Alcantar Primary Care Provider [phone] Denisse Hernandez Unavailable Reason for Visit * Reason Onset Date Comments Med Refill 01/28/2025 Encounter Details Date Type Department Care Team ([facility] Contact Info) Description 01/28/2025 Refill [facility] MEDICINE 230 [place], [place] [phone] Sandra Alcantar ANP 230 [place] [address] Social History Tobacco Use Types Packs/Day Years [...] Description 03/22/2025 11:30 AM EST Office Visit [facility] MEDICINE 230 [place] [address] Sandra Alcantar ANP [address] [place] [address] Arrived 05/11/2025 9:00 AM EST Clinical Support [facility] CHC MED & PEDS 505 [place] [address] Maddison Corley, RN 505 [place] [address] documented as of this encounter Visit Diagnoses Not on filedocumented in this encounter Additional Health Concerns Assessment Noted Time PHQ-9 Depression Total Score: 0 09/21/19 1:27 PM EDT documented as of this encounter Care Teams Supervisor Rework Relationship Specialty Start Date End Date Sandra Alcantar ANP [address] [place] [address] PCP - General Family Medicine 12/27/21 Denisse Hernandez 02/22/25 03/04/25 Kathie Holloway Epic Prelude AnalystPaper Goods Machine Operator 12/13/24 documented as of this encounter
--- OUTSIDE RECORDS SUMMARY | 2025-03-22 09:57 | XMS_ITS | Clinical Summary ---
Author Organization [employer] Address [address] [place] [address] [address] [place] [address] Care Team Providers Care Roadway Technician Name Role Phone Katharine Sandra GAGNON Primary Care Provider [phone] Allergies Active Allergy Reactions Criticality Noted Date Comments Shellfish Allergy Anaphylaxis High 05/15/2022 Medications * This document contains information received from the source organization and may not represent a complete record from that organization. Menthol, Topical Analgesic, (Menthol Cold/Hot) 5 % patchIndicatio ns:Chronic low back pain with right-sided sciatica, unspecified back pain laterality Apply 1 each topically if needed in the morning and at bedtime (pain). 30 patch 2 023 Active naloxone (Narcan) 4 mg/0.1 mL nasal sprayIndicatio ns:Long-term current use of opiate analgesic Administer 1 spray (4 mg) into affected nostril(s) if needed for opioid reversal. May repeat every 2-3 minutes if needed, alternating nostrils, until medical assistance becomes available. 2 each 025 2025 Active EPINEPHrine (Epipen) 0.3 MG/0.3ML injection syringeIndicat ions:Shellfish allergy Inject 0.3 mL (0.3 mg) as directed 1 (one) time if needed for anaphylaxis for up to 1 dose. use as directed for allergic reaction and then call 911 2 each 1 025 Active lidocaine (Lidoderm) 5 % patchIndicatio ns:Low back pain radiating to right leg APPLY 1 PATCH DAILY, CAN WEAR UP TO 12 HOURS 30 patch 2 025 Active Diclofenac Sodium 1 % gelIndications :Sural neuropathy, unspecified laterality APPLY UP TO 4 TIMES A DAY TO AFFECTED JOINT(S) FOR PAIN/SWELLING 100 g 2 025 Active Acetaminophen Extra Strength 500 MG tabletIndicati ons:Chronic pain of right ankle TAKE 1-2 TABLETS ORALLY EVERY 8 HOURS NEEDED DO NOT EXCEED 6 TABLETS PER 24 HOURS 45 tablet 1 025 Active Tirzepatide-We ight Management (Zepbound) 7.5 MG/0.5ML solution auto-injector Inject 0.5 mL (7.5 mg) as directed 1 (one) time per week. INJECT ONE PEN (=7.5 MG) SUBCUTANEOUSLY ONCE A WEEK 2 mL 2 025 Active SUMAtriptan (Imitrex) 100 MG tabletIndicati ons:Migraine without status migrainosus, not intractable, unspecified migraine type TAKE 1 TABLET BY MOUTH 1 TIME IF NEEDED FOR MIGRAINE. DO NOT EXCEED 2 DOSES IN 24 HOURS. 9 tablet 1 025 Active triamcinolone (Kenalog) 0.1 % ointment APPLY TO AFFECTED AREA TWICE A DAY 60 g 025 Active oxyCODONE-acet aminophen (Percocet) 5-325 MG tabletIndicati ons:Neuropathy of right sural nerve Take 1 tablet by mouth every 8 (eight) hours if needed for severe pain for up to 28 days. 84 tablet 025 2025 Active Tirzepatide-We ight Management (Zepbound) 7.5 MG/0.5ML solution auto-injector Inject 0.5 mL (7.5 mg) as directed 1 (one) time per week. INJECT ONE PEN (=7.5 MG) SUBCUTANEOUSLY ONCE A WEEK 2 mL 2 025 2024 Discontinued(R eorder (will not trigger notification to Pharmacy)) SUMAtriptan (Imitrex) 100 MG tabletIndicati ons:Migraine without status migrainosus, not intractable, unspecified migraine type TAKE 1 TABLET BY MOUTH 1 TIME IF NEEDED FOR MIGRAINE. DO NOT EXCEED 2 DOSES IN 24 HOURS. 9 tablet 1 025 2024 Discontinued triamcinolone (Kenalog) 0.1 % ointment APPLY TO AFFECTED AREA TWICE A DAY 60 g 025 2024 Discontinued oxyCODONE-acet aminophen (Percocet) 5-325 MG tabletIndicati ons:Neuropathy of right sural nerve Take 1 tablet by mouth every 8 (eight) hours if needed for severe pain for up to 28 days. Do not start before February 19, 2025. 84 tablet 025 2024 Discontinued(R eorder (will not trigger notification to Pharmacy)) Active Problems Problem Noted Date Diagnosed Date LEONARD (obstructive sleep apnea) 06/18/2024 Class 1 obesity with serious comorbidity and body mass index (BMI) of 30.0 to 30.9 in adult 06/18/2024 Long-term current use of opiate analgesic 2024 External hemorrhoids 12/26/2022 Assessment & Plan (12/26/2022 9:24 AM EDT): Recurrent. Not thrombosed at this time. Refer to director game Cont Prep H FU PRN with PCP Tension headache 11/16/2022 Assessment & Plan (11/16/2022 1:11 PM EDT): Pt Sx per description of headache and normal complete physical exam are most consistent w tension headaches. -Covid and flu test today - neg. -Alarm signs and Sx discussed. -Has apt w real estate management specialist on 01/20/2023 -Tylenol PRN for mild headaches, prescribed NSAIDs PRN for moderate headaches. -Warm compresses advised. Health care maintenance 08/07/2022 Assessment & Plan (08/07/2022 1:52 PM EDT): -Quantiferon 07/2022 Neg , MMRV 07/2022 titers immune -pap smear : 05/2022: Neg w neg HPV ( saw in her phone -[facility] records)-doing annually per pt due to hx of previous HPV+ in [place] -vaccines: s/p: hep B x3, Covid 19 x2 + Bivalent x1, tdap 2016, no hx of HPV vaccine --px vaccine to her px to start series -pt interested ( explained to take preg test if in doubt prior vaccines) -reviewed today in her phone all labs done by her [facility] in 07/26/2022 including TSH,CBC,chem all normal , RPR,HIV,ch/gn, hep C all neg, low vit D at 12. ---only not checked LFTs -but in 2020 were normal---would do annual exam in 1 year and check then again LFTs-no need to repeat labs -start vit D daily x 6 mo -completed today paperwork for school and handed to pt Inguinal pain, right 07/31/2022 Assessment & Plan (08/07/2022 1:42 PM EDT): Us LE 2020: slow flow in right femoral vein , arterial doppler right LE 2020: normal Reports concern for ongoing pressure sensation, on exam no findings consistent w DVT -referred for femoral US -doppler--pd to get image done X chronic symptoms -alarm signs and symptoms discussed in case needs to go to ED Assessment & Plan (07/31/2022 7:14 PM EDT): Us LE 2020: slow flow in right femoral vein , arterial doppler right LE 2020: normal Reports concern for ongoing pressure sensation, on exam no findings consistent w DVT -referred for femoral US -doppler -alarm signs and symptoms discussed in case needs to go to ED Sciatica 07/31/2022 Assessment & Plan (09/18/2023 8:46 PM EDT): Sciatica Pt w chronic lower back pain evaluated in the past Symptoms seems associated currently w sciatica pain with normal neuro exam -from image records : Lumbar XR 2019: normal, EMG 2019 Normal , abd/pelvid CT 2020: normal, Us LE 2020: slow flow in right femoral vein , arterial doppler right LE 2020: normal -MR lumbar spine wo contrast 08/2022:Mild lower lumbar facet arthropathy is noted, with a small right-sided L5-S1 facet joint effusion. No significant disc degenerative change, disc bulge or herniation. No significant spinal canal or neuroforaminal stenosis and no evidence for neural impingement. -CBC and chem 03/2023 wnl -advised tylenol prn up to 1 gr Q 8 if needed, per pt was told to be ok taking NSAIDs if needed after 2 y of her bariatric surgery-px today meloxicam 1 to 2 tab prn for moderate pain -Lidoderm patch -refuse PT referral -states symptoms worsen w PT in the past -orthopedic was pt per pt told no need to f up -advied acupunture today -EMG order today -Continue to f wPM-has apt for 10/2023 for possible inj and advised to talk about spinal implant if there is any indication Assessment & Plan (08/07/2022 1:41 PM EDT): Pt w chronic lower back pain evaluated in the past Symptoms seems associated currently w sciatica pain but per pt is more intense than usual ,denies recent trauma but reports hx of previous trauma years ago--improved now since last visit 4/5 Decrease strength in right leg-possible from pain ? -from image records : Lumbar XR 2019: normal, EMG 2019 Normal , abd/pelvid CT 2020: normal, Us LE 2020: slow flow in right femoral vein , arterial doppler right LE 2020: normal -given chronic symptoms and decrease strength in exam as well no improvement w mx tx done already will do lumbar MRI --pd to get test done -advised tylenol prn up to 1 gr Q 8 if needed, per pt was told to b ok taking NSAIDs if needed after 1 y of her bariatric surgery --states > 1 years,advised to take only x severe pain and after eating no more than twice a day. Lidoderm patch -has apt w pain management this week. -refuse PT referral -states symptoms worsen w PT in the past -f up w PCP to f images,symptoms Assessment & Plan (07/31/2022 7:17 PM EDT): Pt w chronic lower back pain evaluated in the past Symptoms seems associated currently w sciatica pain but per pt is more intense than usual ,denies recent trauma but reports hx of previous trauma years ago 4/5 Decrease strength in right leg-possible from pain ? -from image records : Lumbar XR 2019: normal, EMG 2019 Normal , abd/pelvid CT 2020: normal, Us LE 2020: slow flow in right femoral vein , arterial doppler right LE 2020: normal -given chronic symptoms and decrease strength in exam as well no improvement w mx tx done already will do lumbar MRI -advised tylenol prn up to 1 gr Q 8 if needed, per pt was told to b ok taking NSAIDs if needed after 1 y of her bariatric surgery --states > 1 years,advised to take only x severe pain and after eating no more than twice a day. Lidoderm patch -has apt w pain management this week. 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 Insomnia 03/10/2017 Neuroma of lower extremity 03/10/2017 Menorrhagia 09/25/2016 Assessment & Plan (08/07/2022 1:56 PM EDT): F x menorrhagia w [facility] -showed pt in phone result of last pelvic/TV US 07/2022: Small complex cyst right ovary 1.8x1.4x1.4 cm and a 1.7x1.7x1.5 cm in left ovary --pt already f w [facility] x this -no anemia from her last CBC Myopia 08/14/2016 Ankle pain 01/05/2016 Chronic low back pain 01/05/2016 Generalized anxiety disorder 01/05/2016 Microscopic hematuria 01/05/2016 Migraine 01/05/2016 Scar of skin 01/05/2016 Resolved Problems Problem Noted Date Diagnosed Date Resolved Date Vitreous floaters 12/09/2016 01/14/2024 Encounters Date Type Department Care Team Description 03/22/2025 Travel 03/17/2025 Refill [facility] [address] [place] [address] Sandra Alcantar ANP Neuropathy of right sural nerve 03/14/2025 Telephone [facility] [address] [place] [address] Sandra Alcantar ANP Prior Authorization 03/11/2025 Refill [facility] [address] [place] [address] Sandra Alcantar ANP Migraine without status migrainosus, not intractable, unspecified migraine type 03/11/2025 Orders Only [facility] [address] [place] [address] Sandra Alcantar ANP Hypokalemia (Primary Dx) 03/04/2025 Patient Outreach [facility] [address] [place], [place] [id number] Sandra Alcantar ANP 02/22/2025 Patient Outreach [facility] [address] [place] [address] Sandra Alcantar ANP Care Coordination ([facility] ED follow up) 02/22/2025 Patient Outreach [facility] [address] [place] [address] Sandra Alcantar ANP Care Coordination (CP Care Coordination Chart Review) 02/22/2025 Patient Outreach [facility] [address] [place] [address] Sandra Alcantar ANP Care Coordination (CP Assigned Patient- ED Follow Up) 02/21/2025 9:30 AM EST Telemedicine [facility] [address] [place] [address] Maddison Corley RN Chronic low back pain with right-sided sciatica, unspecified back pain laterality 02/21/2025 Refill [facility] [address] [place] [address] Maddison Corley RN 02/21/2025 Travel 02/17/2025 Refill [facility] [address] [place] [address] Sandra Alcantar ANP Neuropathy of right sural nerve 02/14/2025 Refill [facility] [address] [place] [address] Sandra Alcantar ANP Sural neuropathy, unspecified laterality; Chronic pain of right ankle 02/07/2025 Refill [facility] [address] [place] [address] Sandra Alcantar ANP 01/28/2025 Refill [facility] [address] [place] [address] Sandra Alcantar ANP 01/24/2025 Refill [facility] [address] [place] [address] Maddison Corley RN 01/24/2025 Telephone [facility] [address] [place] [address] Sandra Alcantar ANP Med Refill 01/23/2025 Refill [facility] [address] [place] [address] Sandra Alcantar ANP Neuropathy of right sural nerve 01/20/2025 Refill [facility] [address] [place] [address] Sandra Alcantar ANP 01/12/2025 Refill [facility] [address] [place] [address] Sandra Alcantar ANP Migraine without status migrainosus, not intractable, unspecified migraine type 01/11/2025 Refill [facility] [address] [place] [address] Sandra Alcantar ANP 12/31/2024 Telephone [facility] [address] [place] [address] Sandra Alcantar ANP Care Coordination ([facility] [employer] Attendant) 12/30/2024 Telephone [facility] [address] [place] [address] Sandra Alcantar ANP angelica recall 12/30/2024 Refill [facility] [address] [place] [address] Sandra Alcantar ANP Low back pain radiating to right leg 12/28/2024 Refill [facility] [address] [place] [address] Sandra Alcantar ANP Neuropathy of right sural nerve 12/21/2024 11:30 AM EDT Office Visit [facility] [address] [place] [phone] Sandra Alcantar ANP Encounter for immunization (Primary Dx); Neuropathy of right sural nerve; LEONARD (obstructive sleep apnea); Shellfish allergy 12/21/2024 Travel from Last 3 Months Immunizations Immunization Administration Dates Next Due HPV 9-Valent 04/12/2024,12/15/2023,08/19/2022 Hep B, adult 06/08/2020,04/06/2020,02/17/2020 Influenza injectable quadriv alent IIV4 with preservative 12/26/2017 Influenza injectable quadriv alent preservative free 12/12/2022,01/03/2022,01/29/2020,2018,12/27/2016,04/10/2016 Influenza, seasonal, injecta ble, preservative free 12/21/2024,12/09/2023 Moderna Covid-19 Vaccine 12+ 09/30/2020,08/16/19 21 Moderna Covid-19 Vaccine 6+ Bivalent 05/21/2022 Pfizer Covid-19 Vaccine 12+ 04/16/2024, Tdap 10/05/2019,04/10/2016 Family History Medical History Relation Name Comments Arrhythmia Father Multiple myeloma Father Heart disease Mother Glaucoma Neg Hx Relation Name Status Comments Father Mother Social History Tobacco Use Types Packs/Day Years Used Date Smoking Tobacco: Never Passive Smoke Exposure: Never Smokeless Tobacco: Never Tobacco Cessation:Counseling Given: Not Answered Alcohol Use Standard Drinks/Week Comments Never 0 [...] Q2 Not on file 12/08/2023 Comments No Intention Date Recorded No desire to become (finding) 0 12/21/2024 Sex and Gender Information Value Date Recorded Sex Assigned at Female 01/28/2022 10:30 AM EDT Legal Sex Female 10:30 AM EDT Gender Identity Female 01/28/2022 10:30 AM EDT Sexual Orientation Straight 01/28/2022 10 :30 AM EDT Last Filed Vital Signs Vital Sign Reading Time Taken Comments Blood Pressure 108/70 12/21/2024 11:58 AM EDT Pulse 76 12/21/2024 11:58 AM EDT Temperature 36.7 C (98.1 F) 12/21/2024 11:58 AM EDT Respiratory Rate 20 12/21/2024 11:58 AM EDT Oxygen Saturation 98% 06/18/2024 1:12 PM EDT Inhaled Oxygen Concentration - - Weight 51.7 kg (114 lb) 12/21/2024 11:58 AM EDT Height 149.9 cm (4' 11 ) 12/21/2024 11:58 AM EDT Body Mass Index 23.03 12/21/2024 11:58 AM EDT Plan of Treatment Upcoming Encounters Date Type Department Care Team (Late st Contact Info) Description 03/22/2025 11:30 AM EST Office Visit [facility] [address] [place] [address] Sandra Alcantar, ANP [address] [place] [address] Arrived 05/11/2025 9:00 AM EST Clinical Support [facility] [address] [place] [address] Maddison Corley, RN [address] [place] [address] Health Maintenance Due Date Last Done Comments HPV/Cotest 07/04/2019 Pap Smear 07/04/2019 07/03/2016 COVID-19 Vaccine ( season) 2024 04/16/2024, 12/25/2022, 05/21/2022, Additional history exists SDOH Screening 12/07/2024 12/08/2023 Alcohol/Substance Use Screening 09/20/2025 09/20/2024 Depression Screening 09/20/2025 09/20/2024, 09/21/19 25 Disability Screening 09/20/2025 09/20/2024 Family Planning (PISQ) 12/21/2025 12/21/2024 Tobacco Screening 12/21/2025 12/21/2024 Cervical Cancer Screening 06/01/2027 Po stponed from 07/04/2019 (Other Medical Reasons) Lipid Panel 04/08/2028 04/08/2023 DTaP/Tdap/Td Vaccines (3 - Td or Tdap) 10/04/2029 10/05/2019, 04/10/2016 Zoster Vaccines (1 of 2) 2037 RSV Patients and Patients Aged 60 years or older (1 - 1-dose 75+ series) 2062 HIV Screening Completed 02/08/2020 Hepatitis C Screening Completed 02/08/2020 Hepatitis B Vaccines Completed 06/08/2020, 04/06/2020, 02/17/2020 HPV Vaccines Completed 04/12/2024, 11/29, 08/19/2022 Influenza Vaccine Completed 12/21/2024, , 12/12/2022, Additional [...] patient's age to complete this topic Meningococcal Vaccine Aged Out No yeni tyron eligible based on patient's age to complete this topic Pneumococcal Vaccine: Pediatrics (0 to 5 Years) and At-Risk Patients (6 to 49) Years Aged Out No longer eligible based on patient's age to complete this topic RSV under 20 months Aged Out No longe r eligible based on patient's age to complete this topic Rotavirus Vaccines Aged Out No longer eligible based on patient's age to complete this topic Procedures Procedure Name Priority Date/Time Associated Diagnosis Comments LIPID PANEL, STANDARD Routine 04/08/2023 9:05 AM EST ZZZ HISTORICAL HEPATITIS C AB W/REFL TO HCV RNA, QN, PCR Routine 02/08/2020 10:23 AM EST HIV 1/2 ANTIGEN/ANTIBODY, FOURTH GENERATION W/RFL Routine 02/08/2020 10:23 AM EST HM PAP/HPV Routine 07/03/2016 from Last 3 Months or Most Recently Relevant to Health Maintenance Results * Lipid Panel, Standard (04/08/2023 9:05 AM EST) Triglycerides 41 <150 mg/dL [facility] Comment:Desirable Triglyceri de: less than 150 mg/dLBorderline High Triglyceride 150-199 mg/dLHigh Triglyceride: 200-499 mg/dLVery High Triglyceride: greater than or equal to 5OO mg/dL Cholesterol 156 <200 mg/dL [facility] Comment:Desirable Cholestero l: less than 200 mg/dLBorderline High Cholesterol: 200-239 mg/dLHigh Cholesterol: greater than 239 mg/dL LDL Cholesterol Calculated 80 <100 mg/dL [facility] Comment:Desirable LDL: less than 100 mg/dLNear Optimal/Above Optimal LDL: 110- 129 mg/dLBorderline High LDL: 130-159 mg/dLHigh LDL: 160-189 mg/dLVery High LDL: greater than or equal to 190 mg/dL HDL Cholesterol 68 >40 mg/dL [facility] Comment:Desirable HDL: great er than 40 mg/dL Note: This HDL assay may give artificially low results in patients with liver disease. 04/08/2023 9:05 AM EST 04/08/2023 9:07 AM EST us Generic External Data Provider LAB BLOOD ORDERAB LES Final Result [facility] [address] [place] [phone] * HEPATITIS C AB W/REFL TO HCV RNA, QN, PCR (02/08/2020 10:23 AM EST) HEPATITIS C ANTIBODY NON-REACT JER NON-REACT JER [facility] INDEX 0.01 <1.00 [facility] Comment: HCV antibody was non-reactive. There is no laboratory evidence of HCV infection. In most cases, no further action is required. However, if recent HCV exposure is suspected, a test for HCV RNA (test code 35790) is suggested. For additional information please refer to http://Swarm64.[employer]/faq/DFC71n0 (This link is being provided for informational/ educational purposes only.) HEPATITIS C ANTIBODY NON-REACT JER NON-REACT JER [facility] INDEX 0.01 <1.00 [facility] Comment: HCV antibody was non-reactive. There is no laboratory evidence of HCV infection. In most cases, no further action is required. However, if recent HCV exposure is suspected, a test for HCV RNA (test code 50503) is suggested. For additional information please refer to http://Swarm64.[employer]/faq/FIO24b0 (This link is being provided for informational/ educational purposes only.) HEPATITIS C ANTIBODY NON-REACT JER NON-REACT JER [facility] INDEX 0.01 <1.00 [facility] Comment: HCV antibody was non-reactive. There is no laboratory evidence of HCV infection. In most cases, no further action is required. However, if recent HCV exposure is suspected, a test for HCV RNA (test code 99550) is suggested. For additional information please refer to http://Swarm64.[employer]/faq/BPE90e4 (This link is being provided for informational/ educational purposes only.) 02/08/2020 10:2 3 AM EST us Thom Pete MD HISTORICAL/NON ORDERABLE LABS Fi nal Result [facility] [address] * HIV 1/2 ANTIGEN/ANTIBODY,FOURTH GENERATION W/RFL (02/08/2020 10:23 AM EST) HIV-1/2 ANTIGEN AND ANTIBODIES, 4TH GENERATION W/ REFLEX NON-REACT JER NON-REACT JER [facility] Comment: HIV-1 antigen and HIV-1/HIV-2 antibodies were not detected. There is no laboratory evidence of HIV infection. PLEASE NOTE: This information has been disclosed to you from records whose confidentiality may be protected by state law. If your state requires such protection, then the state law prohibits you from making any further disclosure of the information without the specific written consent of the person to whom it pertains, or as otherwise permitted by law. A general authorization for the release of medical or other information is NOT sufficient for this purpose. For additional information please refer to http://Swarm64.[employer]/faq/ZFL439 (This link is being provided for informational/ educational purposes only.) The performance of this assay has not been clinically validated in patients less than 2 years old. HIV-1/2 ANTIGEN AND ANTIBODIES, 4TH GENERATION W/ REFLEX NON-REACT JER NON-REACT JER [facility] Comment: HIV-1 antigen and HIV-1/HIV-2 antibodies were not detected. There is no laboratory evidence of HIV infection. PLEASE NOTE: This information has been disclosed to you from records whose confidentiality may be protected by state law. If your state requires such protection, then the state law prohibits you from making any further disclosure of the information without the specific written consent of the person to whom it pertains, or as otherwise permitted by law. A general authorization for the release of medical or other information is NOT sufficient for this purpose. For additional information please refer to http://Del[employer]/faq/TET211 (This link is being provided for informational/ educational purposes only.) The performance of this assay has not been clinically validated in patients less than 2 years old. HIV-1/2 ANTIGEN AND ANTIBODIES, 4TH GENERATION W/ REFLEX NON-REACT JER NON-REACT JER [facility] Comment: HIV-1 antigen and HIV-1/HIV-2 antibodies were not detected. There is no laboratory evidence of HIV infection. PLEASE NOTE: This information has been disclosed to you from records whose confidentiality may be protected by state law. If your state requires such protection, then the state law prohibits you from making any further disclosure of the information without the specific written consent of the person to whom it pertains, or as otherwise permitted by law. A general authorization for the release of medical or other information is NOT sufficient for this purpose. For additional information please refer to http://Swarm64.[employer]/faq/EZM169 (This link is being provided for informational/ educational purposes only.) The performance of this assay has not been clinically validated in patients less than 2 years old. HIV-1/2 ANTIGEN AND ANTIBODIES, 4TH GENERATION W/ REFLEX NON-REACT JER NON-REACT JER [facility] Comment: HIV-1 antigen and HIV-1/HIV-2 antibodies were not detected. There is no laboratory evidence of HIV infection. PLEASE NOTE: This information has been disclosed to you from records whose confidentiality may be protected by state law. If your state requires such protection, then the state law prohibits you from making any further disclosure of the information without the specific written consent of the person to whom it pertains, or as otherwise permitted by law. A general authorization for the release of medical or other information is NOT sufficient for this purpose. For additional information please refer to http://education.[employer]/faq/ZTD710 (This link is being provided for informational/ educational purposes only.) The performance of this assay has not been clinically validated in patients less than 2 years old. 02/08/2020 10:2 3 AM EST Thom Pete MD LAB BLOOD ORDERABLES Final Resul t [facility] [address] * Pap Smear (07/03/2016) Pap Negative for intraephithelial lesion or malignancy Negative for intraephithelial lesion or malignancy, Other 07/03/2016 Lashae Aguilera HEALTH MAINTENANCE Final Resul t from Last 3 Months or Most Recently Relevant to Health Maintenance Insurance [employer] C3 Care Teams Roadway Technician Relationship Specialty Start Date End Date Sandra Alcantar ANP [address] [place] [id number] PCP - General Family Medicine 12/27/21 Kathie Holloway [employer] Machine Operator 12/13/24
[2025-03-22 11:45] LABS: Anion Gap 11 (12-20); Blood Urea Nitrogen 15 mg/dL (9-16); Calcium 9.5 mg/dL (8.4-10.2); Carbon Dioxide 28 mmol/L (22-29); Chloride 104 mmol/L (96-108); Estimated Glomerular Filt Rate > 60; Potassium 3.4 mmol/L (3.3-5.1); Sodium 140 mmol/L (135-145)
== END 2025-03-22 09:16 ==
LOC: HO.HHCL 09:15
PROVIDERS: PCP Nurse Practitioner Primary Care; Visit Provider Nurse Practitioner Primary Care
DX: E87.6 Hypokalemia (principal)
CPT/HCPCS: 36415; 80048